=== PATIENT | female | born 1970 | race Caucasian/White ===

== ENCOUNTER → 2016-05-06 | Outpatient (POV) | payer OTHER, SELFPAY | PROVIDERS: Visit Provider Internal Medicine | DX: Y99.9 Unspecified external cause status (principal) | CPT/HCPCS: 93005 ==

== ENCOUNTER → 2017-06-29 10:10 | Outpatient (CLI) | payer MEDICARE, MEDICAID, SELFPAY ==
--- NOTE | 2017-06-29 10:17 | MM_ITS ---
MM Dig screening mamm BI w/CAD CAD Screening COMPARISON: Digital mammograms 04/14/2014 and 05/02/2013 INDICATION: There is a history of breast cancer in patient's paternal grandmother. TECHNIQUE: Standard CC and MLO images were obtained. R2 CAD reviewed. FINDINGS: Scattered fibroglandular densities are seen throughout both breasts and the findings are bilateral and symmetrical. There is a mole marker right breast. There is no suspicious lesion in either breast and there are no suspicious microcalcifications. IMPRESSION: Stable exam no suspicious lesion seen BI-RADS Category: 1 Negative RECOMMENDED FOLLOW-UP: 1YR - 1 YEAR FOLLOW-UP (A letter has been sent to the patient regarding results of the study.)
== END ==
PROVIDERS: PCP Family Medicine; Visit Provider Family Medicine
DX: Z12.31 Encounter for screening mammogram for malignant neoplasm of breast (principal)
CPT/HCPCS: 77067

== ENCOUNTER → 2017-09-18 11:13 | Outpatient (CLI) | payer MEDICARE, MEDICAID, SELFPAY ==
[2017-09-18 12:41] LABS: Thyroid Stimulating Hormone 1.97 uIU/ml (0.358-3.740)
== END ==
PROVIDERS: PCP Family Medicine; Visit Provider Otolaryngology
DX: E03.9 Hypothyroidism, unspecified (principal)
CPT/HCPCS: 36415; 84439; 84443

== ENCOUNTER → 2017-12-11 09:48 | Outpatient (CLI) | payer MEDICARE, MEDICAID, SELFPAY ==
--- NOTE | 2017-12-11 10:00 | MM_ITS ---
MM Dig mamm DX unilat RT CAD, US breast RT complete INDICATION: Palpable abnormality in the medial aspect of the right breast ORDERING PHYSICIAN: Santana Schneider PATIENT AGE: 47 years COMPARISON: 06/29/2017 and 04/14/2014 TECHNIQUE: Standard images performed with spot compression views and right breast ultrasound FINDINGS: Average fibroglandular tissue. A marker is placed along medial aspect of the right breast corresponding to patient's reported palpable abnormality. No malignant appearing mass or malignant appearing microcalcification. Specifically, no abnormalities evident at the placed marker. Right breast ultrasound: No sonographic anomalies apparent. Small nodes present in the axilla IMPRESSION: No evidence of malignancy. No abnormalities to correspond to the patient's area of palpable concern. Negative mammogram and negative ultrasound does not exclude the possibility of malignancy. A palpable nodule should be managed on clinical basis in light of a negative mammogram and negative ultrasound BI-RADS Category: 1 Negative RECOMMENDED FOLLOW-UP: 1YR - 1 YEAR FOLLOW-UP (A letter has been sent to the patient regarding results of the study.)
== END ==
PROVIDERS: PCP Family Medicine; Visit Provider Family Medicine
DX: N63.14 Unspecified lump in the right breast, lower inner quadrant (principal)
CPT/HCPCS: 77065

== ENCOUNTER → 2017-12-16 09:22 | Outpatient (CLI) | payer MEDICARE, MEDICAID, SELFPAY | PROVIDERS: PCP Family Medicine; Visit Provider Family Medicine | DX: R92.8 Other abnormal and inconclusive findings on diagnostic imaging of breast (principal) | CPT/HCPCS: 76641 ==

== ENCOUNTER → 2018-05-25 11:36 | Outpatient (CLI) | payer MEDICARE, MEDICAID, SELFPAY ==
--- NOTE | 2018-05-25 11:50 | XR_ITS ---
EXAM: XR lumbar spine 2-3V HISTORY: Low back pain ITS.REASON: DDD ORDERING PHYSICIAN: Xu Rdz MD PATIENT AGE: 47 years COMPARISON: None FINDINGS: Mild dextroscoliosis. There is straightening of the lumbar lordosis. Degenerative disc disease is present at L4-5 with mild kyphosis at that level. Mild degenerative disc disease is noted also at L5-S1 and T12-L1. No fracture or dislocation. No lytic or blastic change. IMPRESSION: Dextroscoliosis with straightening of the lordosis and degenerative disc disease at L4-5 and L5-S1
--- NOTE | 2018-05-25 11:50 | XR_ITS ---
XR hip RT 2-3V w/pelvis HISTORY: ITS.REASON: RT HIP JOINT PAIN ORDERING PHYSICIAN: Xu Rdz MD PATIENT AGE: 47 years COMPARISON: 01/11/2016 FINDINGS: There are mild osteoarthritic changes of the right hip with decrease in the joint space superiorly. There is some minimal lateral subluxation of the femoral head with mild widening of the hip joint space medially. This had a somewhat similar appearance on an older KUB of 03/16/2012. Osteoarthritic changes and lateral subluxation have somewhat worsened compared to that exam. No fracture or dislocation. No lytic or blastic change. IMPRESSION: Mild osteoarthritis of the right hip with mild lateral subluxation of the femoral head
== END ==
PROVIDERS: PCP Family Medicine; Visit Provider Anesthesiology
DX: M51.36 Other intervertebral disc degeneration, lumbar region (principal); M25.511 Pain in right shoulder
CPT/HCPCS: 72100; 73502

== ENCOUNTER → 2018-06-28 08:34 | Outpatient (CLI) | payer MEDICARE, MEDICAID, SELFPAY ==
--- NOTE | 2018-06-28 08:39 | MR_ITS ---
MR lumbar spine wo con, MR 3-d myelogram/MRCP HISTORY: Low back pain X years. Bilateral leg pain, LT leg numbness. ITS.REASON: DEGENERATION OF LUMBAR INTERVERTEBRAL DISC ORDERING PHYSICIAN: Referral Provider, PATIENT AGE: 47 years Comparison: MRI 07/27/13. DEXA 05/25/18. TECHNIQUE: Standard multiplanar multiecho sequences are performed without contrast. 3-D MIP and myelographic images are also rendered and reviewed FINDINGS: There is straightening of lumbar lordosis with minimal lumbar curvature convex right. Spinal cord ends at the T12-L1 level. T11-T12: Degenerative disc disease with Schmorl's node along the superior endplate of T12. T12-L1 and L1-L2 have unremarkable appearance. L2-L3: Disc desiccation with minimal bulging disc along with mild facet and ligamentum flavum hypertrophy. L3-L4: Mild concentric bulging disc along with facet and ligamentum hypertrophy. There is mild bilateral lateral recess narrowing and mild left foraminal narrowing. L4-L5: Degenerative disc disease with bulging disc along with facet and ligamentum hypertrophy with bilateral lateral recess narrowing and mild bilateral foraminal slightly greater on the right with the bulging disc abutting upon the right L5 nerve root. Right foraminal disc osteophyte/disc protrusion once again noted which is abutting the exiting L4 nerve root. L5-S1: Unremarkable. Small Tarlov cyst is present in the S2 region at 12 mm. IMPRESSION: 1. Overall no significant change from 07/27/2013. 2. Multilevel lumbar spondylosis as detailed above. Please see above for detailed description. 3. Degenerative disc disease L4-L5 with bulging disc along with facet and ligamentum hypertrophy with bilateral lateral recess narrowing and mild bilateral foraminal slightly greater on the right with the bulging disc abutting upon the right L5 nerve root. Right foraminal disc osteophyte/disc protrusion once again noted which is abutting the exiting L4 nerve root. This is not significantly changed
--- NOTE | 2018-06-28 08:40 | MR_ITS ---
MR hip RT wo con HISTORY: Right hip pain ITS.REASON: UNILATERAL PRIMARY OSTEOARTHIRITIS, RIGHT HIP ORDERING PHYSICIAN: Referral Provider, PATIENT AGE: 47 years COMPARISON: 05/25/2018 FINDINGS: There is mild lateral subluxation of the right femoral head as noted on the recent radiograph. There is a small to medium-sized joint effusion of the right hip. No fracture or dislocation. There is a small area of increased T2 signal involving the femoral head posteriorly. This is nonspecific consistent with a small area of bone marrow edema. There is a small amount of edema within the adjacent periarticular tissues posteriorly within the gluteus minimus. There are minimal osteoarthritic changes of the left hip. IMPRESSION: 1. Medium sized right hip joint effusion with mild right lateral femoral head subluxation possibly related to the effusion. 2. Mild osteoarthritic changes of the right hip with a small area of bone marrow edema in the right femoral head posteriorly and mild amount of periarticular edema
== END ==
PROVIDERS: PCP Family Medicine; Visit Provider Family Medicine
DX: M51.36 Other intervertebral disc degeneration, lumbar region (principal); M16.11 Unilateral primary osteoarthritis, right hip
CPT/HCPCS: 72148; 73721; 76376

== ENCOUNTER → 2018-09-30 12:15 | Outpatient (CLI) | payer MEDICARE, MEDICAID, SELFPAY ==
[2018-09-30 13:55] LABS: Thyroid Stimulating Hormone 3.43 uIU/ml (0.358-3.740)
== END ==
PROVIDERS: Visit Provider Otolaryngology
DX: D49.7 Neoplasm of unspecified behavior of endocrine glands and other parts of nervous system (principal)
CPT/HCPCS: 36415; 84439; 84443

== ENCOUNTER → 2018-10-12 09:53 | Outpatient (CLI) | payer MEDICARE, MEDICAID, SELFPAY ==
--- NOTE | 2018-10-12 09:53 | CA_ITS ---
PROCEDURE: 2-D M-mode and color Doppler study INDICATIONS FOR THE TEST: Chest pain COPD Heart Murmur Tobacco Smoking+ Palpitations Fatigue Syncope Edema+ Hypertension+Diabetes Mellitus Rheumatic Fever SOB+LOPEZ+Obesity+Hyperlipidemia+ Family History HD Additional History PAD, KATHARINA PATIENT INFORMATION HEIGHT: 68 WEIGHT: 261 GENDER: Female B/P: 106/53 2-D/M-MODE INTERPRETATION: 2-D MEASUREMENTS OBSERVED VALUES IN CMS Right Ventricular Dimension (RVDd) 2.4 Interventricular Septum (Thickness)(IVsd) 1.2 Left Ventricular Internal Dimensions(LVIDd) 5.4 Left Ventricular Posterior Wall (Thickness)(LVPWd) 1.0 Aortic Root 2.8 Aortic Cusp Separation 2.1 Left Atrial Dimensions (LAD) 3.6 2D 1. Left atrium is mildly enlarged, left ventricle is normal size, mild concentric left ventricular hypertrophy, visually estimated ejection fraction 55% with no regional wall motion abnormality, septum has sigmoid configuration. 2. The right atrium and right ventricle are mildly enlarged with normal contractility. 3. The aortic valve is minimally thickened and fibrosed. 4. The mitral and tricuspid valvular grossly normal. 5. The pulmonic valve is poorly present. 6. No significant pericardial effusion noted. DOPPLER INTERROGATION: Doppler interrogation of the aortic, mitral and tricuspid valvular presence of mild mitral and tricuspid regurgitation, tricuspid regurgitation jet velocity is inadequate for calculation of the right ventricular systolic pressure, grade 1 diastolic dysfunction seen without tissue Doppler evidence of raised left atrial pressure. CONCLUSION: 1. Normal left ventricular size, preserved left ventricular systolic function, visually estimated ejection fraction 55% with no regional wall motion abnormality, grade 1 diastolic dysfunction seen without tissue Doppler evidence of raised left atrial pressure. 2. Mild mitral and tricuspid regurgitation 3. No significant pericardial effusion noted.
--- NOTE | 2018-10-12 10:18 | CT_ITS ---
CT angio abdomen CLINICAL INDICATION: Claudication, preoperative evaluation for right hip replacement ITS.REASON: z ORDERING PHYSICIAN: Shannen Petty APRN PATIENT AGE: 48 years COMPARISON: None TECHNIQUE: Axial images obtained with sagittal and coronal reformats. All CT scans at the facility use one or more dose reduction, viz: automated exposure control, ma/kV adjustment per patient size (including targeted exams where dose is matched to indication, i.e. head), or iterative reconstruction technique. PROCEDURE: Oral Contrast: None IV Contrast: 120 mL's Optiray 350. FINDINGS: No evidence of aortic aneurysm. There are moderate atheromatous changes involving the mid abdominal aorta 5 cm distal to the renal arteries with approximate 40% stenosis from atheromatous plaque. No iliac stenosis evident. The renal arteries have an unremarkable appearance. There is no significant celiac or superior mesenteric artery stenosis. An inferior mesenteric artery is not identified. Branches to the sigmoid colon emanate from the superior mesenteric artery. Bilateral lower extremity runoff: On the right the common femoral, femoral artery, popliteal artery, trifurcation vessels have an unremarkable appearance. There is three-vessel runoff to the ankle on the right. On the left the common femoral, femoral, popliteal, and trifurcation vessels are unremarkable with three-vessel runoff to the ankle. Nonvascular findings: There are postsurgical changes of the anterior abdominal wall. The liver shows mild fatty replacement. The spleen, adrenal glands, and pancreas are unremarkable. There are a few small periportal lymph nodes. There is a nonobstructing 3 mm stone in the lower pole of left kidney. There is a sclerotic focus in the right ilium which may be due to bone island. IMPRESSION: 1. Mild to moderate atheromatous changes of the infrarenal portion of the abdominal aorta causing approximately 40% stenosis. 2. Otherwise negative CT angiogram of the abdominal aorta and runoff vessels.
== END ==
PROVIDERS: PCP Family Medicine; Visit Provider Nurse Practitioner Family
DX: I70.0 Atherosclerosis of aorta (principal); R06.00 Dyspnea, unspecified; Z01.818 Encounter for other preprocedural examination; I11.9 Hypertensive heart disease without heart failure; I73.9 Peripheral vascular disease, unspecified
CPT/HCPCS: 74175; 93306; Q9967

== ENCOUNTER → 2019-05-03 08:57 | Outpatient (POV) | payer MEDICARE, MEDICAID, SELFPAY | PROVIDERS: Visit Provider Dermatology | DX: Z00.00 Encounter for general adult medical examination without abnormal findings (principal) ==

== ENCOUNTER → 2019-06-21 10:12 | Outpatient (POV) | payer MEDICARE, MEDICAID, SELFPAY | PROVIDERS: PCP Dermatology; Visit Provider Dermatology | DX: Z00.00 Encounter for general adult medical examination without abnormal findings (principal) ==

== ENCOUNTER → 2020-02-06 15:17 | Outpatient (CLI) | payer MEDICARE, MEDICAID, SELFPAY ==
[2020-02-06 16:11] LABS: Free T4 (Free Thyroxine) 1.57 ng/dl (0.78-2.19)
[2020-02-06 16:13] LABS: Thyroid Stimulating Hormone 5.54 uIU/mL (0.465-4.68)
== END ==
PROVIDERS: Visit Provider Otolaryngology
DX: E78.5 Hyperlipidemia, unspecified (principal); Z79.899 Other long term (current) drug therapy
CPT/HCPCS: 36415; 84439; 84443

== ENCOUNTER → 2020-08-24 09:35 | Outpatient (CLI) | payer MEDICARE, MEDICAID, SELFPAY ==
[2020-08-24 11:09] LABS: Free T4 (Free Thyroxine) 1.48 ng/dl (0.78-2.19)
[2020-08-24 11:23] LABS: Thyroid Stimulating Hormone 5.37 uIU/mL (0.465-4.68)
== END ==
PROVIDERS: Visit Provider Otolaryngology
DX: E03.9 Hypothyroidism, unspecified (principal)
CPT/HCPCS: 36415; 84439; 84443

== ENCOUNTER → 2020-10-02 09:18 | Outpatient (POV) | payer MEDICARE, MEDICAID, SELFPAY | PROVIDERS: Visit Provider Dermatology | DX: Z00.00 Encounter for general adult medical examination without abnormal findings (principal) ==

== ENCOUNTER 2020-10-30 20:16 | Inpatient (IN) | payer MEDICARE, MEDICAID, SELFPAY ==
[2020-10-30 21:05] VITALS: BP 89/49; PULSE 96; RESP 18; TEMP 36.9; O2SAT 96; BMI 41.6
[2020-10-30 22:00] VITALS: BP 126/100; PULSE 98; O2SAT 93
--- NOTE | 2020-10-30 22:09 | CT_ITS ---
PROCEDURE INFORMATION: Exam: CT Abdomen And Pelvis With Contrast Exam date and time: 10/30/2020 10:09 PM Age: 50 years old Clinical indication: Abdominal pain; Generalized; Prior surgery; Surgery date: 6+ months; Surgery type: Appendix, hysterectomy, hernia; Additional info: Upper abd pain TECHNIQUE: Imaging protocol: Computed tomography of the abdomen and pelvis with contrast. Radiation optimization: All CT scans at this facility use at least one of these dose optimization techniques: automated exposure control; mA and/or kV adjustment per patient size (includes targeted exams where dose is matched to clinical indication); or iterative reconstruction. Contrast material: ISOVUE; Contrast volume: 75 ml; Contrast route: IV; COMPARISON: [facility] CT angio abdomen 10/12/2018 10:54 AM FINDINGS: Lungs: Mild scarring and atelectasis in the lower lungs. There is a 3 mm right middle lobe pulmonary nodule, unchanged since at least 2015. No follow-up imaging is warranted. Liver: Hepatic steatosis and hepatomegaly. Gallbladder and bile ducts: Cholelithiasis. Dilated gallbladder. Pancreas: Mild pancreatic atrophy. Spleen: Normal. No splenomegaly. Adrenal glands: Normal. No mass. Kidneys and ureters: Low attenuation renal lesions measuring up to 1.7 cm in diameter are incompletely characterized, but are likely cysts. No followup imaging is warranted. Nonobstructing left renal calculus. Stomach and bowel: Unremarkable. No obstruction. No mucosal thickening. Appendix: No evidence of appendicitis. Intraperitoneal space: Unremarkable. No free air. No significant fluid collection. Vasculature: [id number] atherosclerotic changes of the arteries. Lymph nodes: Unremarkable. No enlarged lymph nodes. Urinary bladder: Unremarkable as visualized. Reproductive: Status post hysterectomy. Bones/joints: Status post total right hip arthroplasty. Soft tissues: There is a healed anterior abdominal wall incision. IMPRESSION: 1. Cholelithiasis. Dilated gallbladder. Please correlate for evidence of acute cholecystitis clinically. 2. Nonobstructing left renal calculus. 3. Hepatic steatosis and hepatomegaly. COMMENTS: Consistent with the [employer]'s Incidental Findings Committee white paper (J Am Katelyn Radiol 2018): Any incidental renal lesion less than 1 cm or classified as too small to characterize, or any incidental cystic renal lesion characterized as simple-appearing, is likely benign. No follow-up imaging is recommended for these lesions per consensus recommendations based on imaging criteria.
--- NOTE | 2020-10-30 22:09 | XR_ITS ---
PROCEDURE INFORMATION: Exam: XR Chest Exam date and time: 10/30/2020 10:09 PM Age: 50 years old Clinical indication: Chest pressure; Patient HX: Chest tightness abdomen pain TECHNIQUE: Imaging protocol: XR of the chest. Views: 2 views. COMPARISON: [facility] CT CHEST W/O CONTRAST 09/23/2016 1:12 PM FINDINGS: Lungs: Minimal bibasilar atelectasis. Pleural spaces: Unremarkable. No pleural effusion. No pneumothorax. Heart/Mediastinum: Unremarkable. No cardiomegaly. Bones/joints: Unremarkable. IMPRESSION: No acute findings.
[2020-10-30 22:30] VITALS: BP 94/44
[2020-10-30 22:38] LABS: Alanine Aminotransferase 15 U/L (12-78); Albumin Level 4.4 g/dl (3.5-5.0); Albumin/Globulin Ratio 1.1 (1.1-1.8); Alkaline Phosphatase 74 U/L (38-126); Amylase 41 U/L (30-110); Anion Gap 13.2 mEq/L (5-15); Aspartate Amino Transferase 29 U/L (14-36); Bilirubin,Total 1.4 mg/dl (0.2-1.3); Blood Urea Nitrogen 26 mg/dl (7-17); Calcium 8.7 mg/dl (8.4-10.2); Carbon Dioxide 30 mmol/L (22.0-30.0); Chloride 97 mmol/L (98-107); Creatinine Clearance Estimated 54 mL/min (50-200); Estimated Glomerular Filt Rate 43 ml/min (>60); GFR (African American) 52 ML/MIN (>60); Globulin 4.1 g/dL (1.3-3.2); Glucose 117 mg/dl (74-100); Lipase 21 U/L (23-300); Potassium 4.2 mmoL/L (3.5-5.1); Sodium 136 mmol/L (136-145); Total Protein,Serum 8.5 g/dl (6.3-8.2)
[2020-10-30 22:39] LABS: Lactic Acid 1.5 mmol/L (0.7-2.1)
[2020-10-30 22:52] LABS: Troponin I 0.02 ng/ml (0.00-0.034)
[2020-10-30 22:56] LABS: C-Reactive Protein 348.9 mg/L (0-4)
[2020-10-30 22:57] LABS: Procalcitonin 2.13 ng/mL (0.0-2.0)
[2020-10-30 23:01] VITALS: BP 129/54
[2020-10-30 23:10] LABS: Basophils # 0.1 K/mm3 (0-0.2); Basophils % 0.5 % (0.1-2.0); Eosinophils # 0.1 K/mm3 (0.0-0.4); Eosinophils % 0.4 % (0.1-12.0); Hematocrit 49.2 % (37.0-47.0); Hemoglobin 16.2 g/dL (12.2-16.2); Lymphocytes # 1.3 K/mm3 (0.7-4.5); Lymphocytes % 8.9 % (10-50); Mean Corpuscular HGB Conc 32.9 g/dL (31.8-35.4); Mean Corpuscular Hemoglobin 30.4 pg (27.0-31.2); Mean Corpuscular Volume 92.5 fl (81-99); Mean Platelet Volume 7.8 fl (7.4-10.4); Monocytes # 0.6 K/mm3 (0.1-1.0); Monocytes % 3.7 % (1.7-9.3); Neutrophils # 12.8 K/mm3 (1.8-7.8); Neutrophils % 86.5 % (37.0-80.0); Platelet Count 244 K/mm3 (142-424); Red Blood Count 5.32 M/mm3 (4.20-5.40); Red Cell Distribution Width 14.2 % (11.5-17.5); White Blood Count 14.8 K/mm3 (4.8-10.8)
[2020-10-30 23:16] LABS: MANUAL DIFFERENTIAL MANUAL DIFFERENTIAL (MANUAL DIFF)
--- NOTE | 2020-10-30 23:28 | HMH.EDSKAF ---
ED Disposition Clinical Impression: Tobacco dependence syndrome, Severe sepsis with acute organ dysfunction, Septic shock, Renal insufficiency, Hypothyroidism (acquired) Cellulitis Qualifiers: Site of cellulitis: extremity Site of cellulitis of extremity: lower extremity Laterality: right Qualified Code(s): L03.115 - Cellulitis of right lower limb Obesity Qualifiers: Obesity type: due to excess calories Obesity classification: adult class 3 (BMI >= 40) Serious obesity comorbidity presence: with serious comorbidity Body mass index: BMI 40.0-44.9 Qualified Code(s): E66.01 - Morbid (severe) obesity due to excess calories; Z68.41 - Body mass index [BMI]40.0-44.9, adult Cholelithiasis Qualifiers: Cholelithiasis location: gallbladder Cholecystitis presence: without cholecystitis Biliary obstruction: without biliary obstruction Qualified Code(s): K80.20 - Calculus of gallbladder without cholecystitis without obstruction Disposition: Admitted As Inpatient Condition on Discharge: Good Referrals: Santana Schneider [Primary Care Provider] - - Critical Care Critical Care Time: No Attestation: On 10/30/20, the high probability of a clinically significant, sudden or life threatening deterioration of the following system(s) required my full and direct attention, intervention and personal management. The time I documented below is in addition to time spent performing reported procedures but includes the following listed in this critical care notation. Medical Decision Making - Medical Records Medical records reviewed: Yes: I reviewed the patient's medical records. - Miguel Inquiry Pt receiving controlled substance: No Vital Signs: 10/30/20 21:05 10/30/20 22:00 10/30/20 22:30 Temperature 98.4 F Temperature Source Oral Pulse Rate 98 H Pulse Rate [Left Brachial] 96 H Respiratory Rate 18 Blood Pressure 126/100 H 94/44 L Blood Pressure [Left Arm] 89/49 L Blood Pressure Mean 73 Blood Pressure Mean [Left Arm] 62 Blood Pressure Source Blood Pressure Source [Left Arm] Automatic Cuff Blood Pressure Position [Left Arm] Sitting 02 Sat by Pulse Oximetry 96 93 L Oxygen Delivery Method Room Air 10/30/20 23:01 10/30/20 23:54 10/31/20 00:00 Temperature Temperature Source Pulse Rate 109 H 111 H Pulse Rate [Left Brachial] Respiratory Rate Blood Pressure 129/54 L 80/37 L 88/36 L Blood Pressure [Left Arm] Blood Pressure Mean 79 57 53 Blood Pressure Mean [Left Arm] Blood Pressure Source Blood Pressure Source [Left Arm] Blood Pressure Position [Left Arm] 02 Sat by Pulse Oximetry 92 L 93 L Oxygen Delivery Method 10/31/20 00:12 10/31/20 00:15 10/31/20 00:32 Temperature Temperature Source Pulse Rate 106 H 105 H 88 Pulse Rate [Left Brachial] Respiratory Rate Blood Pressure 78/30 L 88/46 L 79/58 L Blood Pressure [Left Arm] Blood Pressure Mean Blood Pressure Mean [Left Arm] Blood Pressure Source Manual Cuff/ Auscultation Blood Pressure Source [Left Arm] Blood Pressure Position [Left Arm] 02 Sat by Pulse Oximetry 92 L 89 L 89 L Oxygen Delivery Method 10/31/20 00:39 10/31/20 00:45 Temperature Temperature Source Pulse Rate 98 H 96 H Pulse Rate [Left Brachial] Respiratory Rate Blood Pressure 87/47 L 93/40 L Blood Pressure [Left Arm] Blood Pressure Mean 60 58 Blood Pressure Mean [Left Arm] Blood Pressure Source Blood Pressure Source [Left Arm] Blood Pressure Position [Left Arm] 02 Sat by Pulse Oximetry 92 L 94 L Oxygen Delivery Method - Lab Data Lab results reviewed: Yes: I reviewed the patient's lab results. Lab Results 10/30/20 22:15: WBC 14.8 H, RBC 5.32, Hgb 16.2, Hct 49.2 H, MCV 92.5, MCH 30.4, MCHC 32.9, RDW 14.2, Plt Count 244, MPV 7.8, Neut % (Auto) 86.5 H, Lymph % (Auto) 8.9 L, Jones % (Auto) 3.7, Eos % (Auto) 0.4, Baso % (Auto) 0.5, Neut # (Auto) 12.8 H, Lymph # (Auto) 1.3, Jones # (Auto) 0.6, Eos # (A
[2020-10-30 23:54] VITALS: BP 80/37; PULSE 109; O2SAT 92
--- NOTE | 2020-10-30 23:59 | ECG_ITS ---
APPROVED REPORT Exam: Resting ECG HR:105 bpm ECG Measurements Heart Rate 105 AXES IA 174 P 53 QRSd 80 QRS 29 QT 354 T 68 QTc 467 Conclusion Sinus tachycardia with occasional premature ventricular complexes Low voltage QRS Cannot rule out Anterior infarct, age undetermined Abnormal ECG Electronically signed by : Oscar Adam, 11/01/2020 17:02:36
[2020-10-31] VITALS (19 sets, daily range): BP systolic 78–148; BP diastolic 30–77; PULSE 83–112; RESP 18–24; TEMP 36.9–37.2; O2SAT 89–100; BMI 41.3; BMI 41.4
[2020-10-31] LABS: Lymphocytes % 11 % (10-50); Monocytes % 3 % (2-9); Neutrophils % 86 % (42-76); Platelet Estimate Normal; RBC Morphology Normal; Total Cells Counted 100
[2020-10-31 00:01] LABS: Erythrocyte Sedimentation Rate 15 mm/hr (0-20)
[2020-10-31 00:05] LABS: Coronavirus 19, PCR Not Detected (NotDetected); Influenza A, PCR Not Detected (NotDetected); Influenza B, PCR Not Detected (NotDetected)
[2020-10-31 00:37] LABS: Microscopic, Urine URINE MICROSCOPIC (MICROSCOPIC)
[2020-10-31 00:59] LABS: Appearance,Urine CLEAR (Clear); Blood, Urine Negative (Negative); Color,Urine YELLOW (Yellow); Glucose,Urine (UA) Negative (Negative); Ketones,Urine TRACE (Negative); Leukocyte Esterase,Urine TRACE (Negative); Nitrate,Urine POSITIVE (Negative); PH,Urine 5.5 (5.0-8.5); Protein,Urine 1+ (Negative)
[2020-10-31 01:02] LABS: Bilirubin,Urine 2+ (Negative)
[2020-10-31 02:15] LABS: Thyroid Stimulating Hormone 3.71 uIU/mL (0.465-4.68)
--- NOTE | 2020-10-31 03:42 | PC.NURSE ---
PT ARRIVED TO FLOOR VIA W/C FROM ED W/STAFF AT [id number]
[2020-10-31 03:51] LABS: Bacteria,Urine 2+ /lpf
--- NOTE | 2020-10-31 07:23 | HMH.PHAVTE ---
[facility] Pharmacy VTE Monitoring - Patient Demographics Admission date: 10/30/20 Report Date: 10/31/20 Time: 07:24 Allergies/Adverse Reactions: Patient Allergies nitrofurantoin [From MACROBID] Allergy (Severe, Verified 08/30/20 15:15) S-DIFF. BREATHING metronidazole Allergy (Intermediate, Verified 08/30/20 15:15) codeine [CODEINE] Allergy (Unknown, Verified 08/30/20 15:15) Height: 1.75 m Weight: 127.913 kg Patient Problems: Current Active Problems Cellulitis (Acute) Obesity (Acute) Severe sepsis with acute organ dysfunction (Acute) Septic shock (Acute) Renal insufficiency (Acute) Cholelithiasis (Acute) Hypothyroidism (acquired) (Acute) Tobacco dependence syndrome (Chronic) - VTE Risk Labs: VTE Related Lab Results Hgb 16.2 g/dL (12.2-16.2) 10/30/20 22:15 Hct 49.2 % (37.0-47.0) H 10/30/20 22:15 Plt Count 244 K/mm3 (142-424) 10/30/20 22:15 BUN 26 mg/dl (7-17) H 10/30/20 22:15 Creatinine 1.30 mg/dl (0.52-1.04) H 10/30/20 22:15 Estimated Creat Clear 54 mL/min (50-200) 10/30/20 22:15 Clinical Trial Participant: No - Prophylaxis VTE Prophylaxis Ordered?: Yes Types of VTE Prophylaxis: TEDS Knee High
--- NOTE | 2020-10-31 07:28 | HMH.PHAINT ---
home medication list confirmed using lsit from [facility]
[2020-10-31 07:43] LABS: Anion Gap 10.4 mEq/L (5-15); Basophils # 0.1 K/mm3 (0-0.2); Basophils % 0.4 % (0.1-2.0); Blood Urea Nitrogen 19 mg/dl (7-17); Carbon Dioxide 29 mmol/L (22.0-30.0); Chloride 105 mmol/L (98-107); Chol/HDL Ratio 8.6 (1-3.5); Cholesterol 207 mg/dl (140-200); Creatinine Clearance Estimated 70 mL/min (50-200); Direct LDL Cholesterol 101.02 mg/dL (100-129); Eosinophils % 0.1 % (0.1-12.0); Estimated Glomerular Filt Rate 59 ml/min (>60); GFR (African American) 71 ML/MIN (>60); Glucose 116 mg/dl (74-100); HDL Cholesterol 24 mg/dl (40-60); Hematocrit 45.1 % (37.0-47.0); Lymphocytes # 0.9 K/mm3 (0.7-4.5); Lymphocytes % 8.1 % (10-50); Mean Corpuscular HGB Conc 31.9 g/dL (31.8-35.4); Mean Corpuscular Hemoglobin 30.4 pg (27.0-31.2); Mean Platelet Volume 7.6 fl (7.4-10.4); Monocytes # 0.6 K/mm3 (0.1-1.0); Neutrophils % 86.4 % (37.0-80.0); Platelet Count 197 K/mm3 (142-424); Potassium 4.4 mmoL/L (3.5-5.1); Red Blood Count 4.74 M/mm3 (4.20-5.40); Red Cell Distribution Width 13.9 % (11.5-17.5); Sodium 140 mmol/L (136-145); Triglycerides 316 mg/dl (30-150); VLDL Cholesterol 63 mg/dL (0-40); White Blood Count 11.6 K/mm3 (4.8-10.8)
--- NOTE | 2020-10-31 08:00 | US_ITS ---
PROCEDURE: US GALLBLADDER CLINICAL INDICATION: abd pain COMPARISON: CT CT ABDOMEN PELVIS W CON from 10/30/2020 FINDINGS: Pancreas: Unremarkable/Not well seen Liver: Diffuse increased echogenicity of the liver with poor through transmission of sound consistent with hepatic steatosis. No focal liver lesion demonstrated. There is appropriate direction of blood flow within non dilated portal vein.There is appropriate direction of blood flow within a non dilated portal vein. Right kidney: Unremarkable appearing. No hydronephrosis. Gallbladder: There is a gallstone present measuring approximately 3 cm. No pericholecystic fluid or biliary dilatation is evident. No gallbladder wall thickening. Gallbladder is mildly distended at 10 x 4 cm. IMPRESSION: Cholelithiasis with mildly distended gallbladder and fatty liver Dictated by: Jose Dixon MD 10/31/2020 12:40 Jose Dioxn MD in [place] 10/31/2020 12:40
[2020-10-31 08:07] LABS: Calcium 7.7 mg/dl (8.4-10.2); Hemoglobin 14.4 g/dL (12.2-16.2)
--- NOTE | 2020-10-31 08:17 | P.HP_ITS ---
*Admission Date: 10/30/20 <Monica Vazquez 10/31/20 08:28> *Chief complaint: right lower leg swelling and erythema <Monica Vazquez 10/31/20 08:28> *History of present illness: Ms. Spain is a 50-year-old female with a history of hypertension who states she woke up 2 days ago with a painful right lower leg. It was red and hot and continued to get worse, therefore she presented to the emergency room for further evaluation and treatment. She states she has also had some intermittent chest pain, some upper abdominal pain, and chills since yesterday. She did have an abdominal pelvic CT showing cholelithiasis with a dilated gallbladder. Her chest x-ray showed nothing acute . Her blood pressure was extremely low when she arrived at the ER and she was felt to be in septic shock. She was admitted with a cellulitis and placed on IV fluids and IV antibiotics. <Monica Vazquez 10/31/20 08:28> [facility] History I have reviewed the patient's past medical history: Yes <Monica Vazquez 10/31/20 08:28> Medical History: Reports:: Anxiety, Hypertension, Peripheral Vascular Disease <Monica Vazquez 10/31/20 08:28> *Have you ever received a pneumonia vaccine?: No <Monica Vazquez 10/31/20 08:28> *Have you received a flu vaccine this season?: No <Monica Vazquez 10/31/20 08:28> Other Medical History: Reports: Hypothyroidism, Thyroid Disease <Monica Vazquez 10/31/20 08:28> Laterality Cases: Right: Total Hip Replacement, Bilateral: Other <Monica Vazquez 10/31/20 08:28> Other Surgeries: Yes: Appendectomy, Cardiac Catheterization, Dilation and Curettage, Hernia Repair, Hysterectomy-Total, Thyroidectomy <Monica Vazquez 10/31/20 08:28> Amputation: No <Monica Vazquez 10/31/20 08:28> Fractures: No <Monica Vazquez 10/31/20 08:28> - *Social History Smoking Status: Current every day smoker <Monica Vazquez 10/31/20 08:28> Tobacco Type: cigarettes <Monica Vazquez - 10/31/20 08:28> # Packs/Day (cigarettes): [facility] 10/31/[facility] 08:28> Alcohol Intake: never <[facility] 10/31/20 08:28> Substance Use Type: denies use <[facility] 10/31/20 08:28> *Occupational Status:: unemployed <[facility] 10/31/[facility] 08:28> Housing: house <[facility] 10/31/20 08:28> *Travel in the last 8 weeks: None <[facility] 10/31/20 08:28> - Psychiatric History Pschychiatric History:: Reports:: Anxiety <[facility] 10/31/20 08:28> Family Hx:: Cancer, Diabetes, Hypertension, Stroke <[facility] 10/31/20 08:28> Review of Systems - Constitutional Reports chills, Reports fever(s), Reports malaise <[facility] 10/31/20 08:28> - Eyes Denies blurry vision, Denies double vision [facility]28> - ENT Denies nasal congestion, Denies sore throat <[facility] 10/31/20 08:28> - *Cardiovascular Reports chest pain, Reports shortness of breath <[facility] 10/31/20 08:28> - *Respiratory Reports cough, Reports shortness of breath <[facility] 08:28> - *Gastrointestinal Reports abdominal pain (epigastric), Reports constipation, Reports nausea, Denies loose stools, Denies vomiting <[facility] 10/31/20 08:28> - *Genitourinary Denies difficulty urinating, Denies painful urination <[facility] 10/31/20 08:28> - *Musculoskeletal Reports back pain, Denies joint pain <[facility] 10/31/20 08:28> - *Neurologic Reports headache(s), Denies localized weakness, Denies seizure-like activity <[facility] 10/31/20 08:28> Meds Home Medications Medication Instructions Recorded Confirmed Type
--- NOTE | 2020-10-31 08:17 | HMH.HP ---
*Admission Date: 10/30/20 <Monica Vazquez 10/31/20 08:28> *Chief complaint: right lower leg swelling and erythema <Monica Vazquez 10/31/20 08:28> *History of present illness: Ms. Spain is a 50-year-old female with a history of hypertension who states she woke up 2 days ago with a painful right lower leg. It was red and hot and continued to get worse, therefore she presented to the emergency room for further evaluation and treatment. She states she has also had some intermittent chest pain, some upper abdominal pain, and chills since yesterday. She did have an abdominal pelvic CT showing cholelithiasis with a dilated gallbladder. Her chest x-ray showed nothing acute. Her blood pressure was extremely low when she arrived at the ER and she was felt to be in septic shock. She was admitted with a cellulitis and placed on IV fluids and IV antibiotics. <Monica Vazquez 10/31/20 08:28> [facility] History I have reviewed the patient's past medical history: Yes <Monica Vazquez 10/31/20 08:28> Medical History: Reports:: Anxiety, Hypertension, Peripheral Vascular Disease <Monica Vazquez 10/31/20 08:28> *Have you ever received a pneumonia vaccine?: No <Monica Vazquez 10/31/20 08:28> *Have you received a flu vaccine this season?: No <Monica Vazquez 10/31/20 08:28> Other Medical History: Reports: Hypothyroidism, Thyroid Disease <Monica Vazquez 10/31/20 08:28> Laterality Cases: Right: Total Hip Replacement, Bilateral: Other <Monica Vazquez 10/31/20 08:28> Other Surgeries: Yes: Appendectomy, Cardiac Catheterization, Dilation and Curettage, Hernia Repair, Hysterectomy-Total, Thyroidectomy <Monica Vazquez 10/31/20 08:28> Amputation: No <Monica Vazquez 10/31/20 08:28> Fractures: No <Monica Vazquez 10/31/20 08:28> - *Social History Smoking Status: Current every day smoker <Monica Vazquez 10/31/20 08:28> Tobacco Type: cigarettes <Monica Vazquez 10/31/20 08:28> # Packs/Day (cigarettes): 2 <[facility] 10/[facility] 08:[facility]> Alcohol Intake: never <[facility] 10/31/20 08:28> Substance Use Type: denies use <[facility] 10/31/20 08:28> *Occupational Status:: unemployed <[facility] 10/31/20 08:28> Housing: house <[facility] 10/31/20 08:28> *Travel in the last 8 weeks: None <[facility] 10/31/20 08:28> - Psychiatric History Pschychiatric History:: Reports:: Anxiety <[facility] 10/31/20 08:28> Family Hx:: Cancer, Diabetes, Hypertension, Stroke <[facility] 10/31/20 08:28> Review of Systems - Constitutional Reports chills, Reports fever(s), Reports malaise <[facility] 10/31/20 08:28> - Eyes Denies blurry vision, Denies double vision <[facility] 10/31/20 08:28> - ENT Denies nasal congestion, Denies sore throat [facility] 08[facility]28> - *Cardiovascular Reports chest pain, Reports shortness of breath <[facility] 08:28> - *Respiratory Reports cough, Reports shortness of breath <[facility] 08:28> - *Gastrointestinal Reports abdominal pain (epigastric), Reports constipation, Reports nausea, Denies loose stools, Denies vomiting <[facility] 10/31/20 08:28> - *Genitourinary Denies difficulty urinating, Denies painful urination <[facility] 10/31/20 08:28> - *Musculoskeletal Reports back pain, Denies joint pain <[facility] 10/31/20 08:28> - *Neurologic Reports headache(s), Denies localized weakness, Denies seizure-like activity <[facility] 10/31/20 08:28> Meds Home Medications Medication Instructions Recorded Confirmed Type albuterol sulfate 90 mcg/actuation 2 puff INHALATION Q4HP PRN 08/19/17 10/31/20 History aerosol inhaler diazepam 10 mg tablet 10 mg PO TID 08/19/17 10/31/20 History lisinopril 5 mg tablet 5 mg PO DAILY tab 08/19/17 10/31/20 History meloxicam 15 mg tablet 15 mg PO DAILY 09/30/18 10/31/20 History oxycodone-acetaminophen 10 mg-325 1 tab PO Q6HP PRN tab 02/06/20 10/31/20 History
--- NOTE | 2020-10-31 14:42 | PC.NURSE ---
Pt educated on use of IS, pt able to demonstrate correct use back to staff. IS @ best = 2500.
--- NOTE | 2020-10-31 17:50 | PC.NURSE ---
Pt has slept majority of shift, stating she just feels exhausted. She was medicated this AM for her chronic back pain. No further complaints of pain thus far. Remains on 2 L O2 per nasal cannula, pt does desat to mid 80's when sleeping. Wheezing noted, occasional dry cough. Abdomen soft, tender w/ active BS in all quads. No BM this shift. Voiding w/o difficulty. Independent w/ adl's. No needs voiced. Call reyes w/in reach.
[2020-11-01 04:00] VITALS: BP 105/66; PULSE 92; RESP 20; TEMP 36.8; O2SAT 95
[2020-11-01 04:28] VITALS: BP 93/66; PULSE 89; RESP 18; TEMP 36.6; O2SAT 72
[2020-11-01 04:29] VITALS: O2SAT 95
--- NOTE | 2020-11-01 04:32 | PC.NURSE ---
patient has removed oxygen on and off throughout shift, patient resistant to wearing oxygen. explained that oxygen level was at 72% on r/a while sleeping. patient stated i guess, i'll wear it for a little while. o2 at 2 l nc placed back on patient sats quickly returned back to mid 90s.
--- NOTE | 2020-11-01 04:51 | PC.NURSE ---
explained to patient that when she sleeps her oxygen level drops to 72% and she should probably being wearing her cpap at night. asked patient if she felt sleepy in the daytime, patient stated she did, rn explained to patient that was probably due to her oxygen levels being low when she sleeps.
[2020-11-01 05:06] VITALS: BMI 43.2
[2020-11-01 06:28] LABS: Basophils % 0.2 % (0.1-2.0); Eosinophils % 0.1 % (0.1-12.0); Hematocrit 39.1 % (37.0-47.0); Lymphocytes # 1.4 K/mm3 (0.7-4.5); Lymphocytes % 13.1 % (10-50); Mean Corpuscular HGB Conc 31.4 g/dL (31.8-35.4); Mean Corpuscular Hemoglobin 30.1 pg (27.0-31.2); Mean Corpuscular Volume 95.9 fl (81-99); Mean Platelet Volume 8.1 fl (7.4-10.4); Monocytes # 0.8 K/mm3 (0.1-1.0); Monocytes % 7.1 % (1.7-9.3); Neutrophils # 8.4 K/mm3 (1.8-7.8); Neutrophils % 79.5 % (37.0-80.0); Platelet Count 229 K/mm3 (142-424); Red Blood Count 4.07 M/mm3 (4.20-5.40); Red Cell Distribution Width 14.3 % (11.5-17.5); White Blood Count 10.6 K/mm3 (4.8-10.8)
--- NOTE | 2020-11-01 06:29 | PC.NURSE ---
patient complaining of oxygen, states it causing a headache and making her dizzy. patient complaining of being npo. rn explained benefits of oxygen again and reason for npo status due to awaiting results of ultrasound results in cause of need for surgical intervention.
[2020-11-01 06:31] LABS: Chloride 105 mmol/L (98-107)
[2020-11-01 06:32] LABS: Potassium 4.3 mmoL/L (3.5-5.1); Sodium 138 mmol/L (136-145)
[2020-11-01 06:34] LABS: Alanine Aminotransferase 50 U/L (12-78); Aspartate Amino Transferase 100 U/L (14-36); Blood Urea Nitrogen 23 mg/dl (7-17); Creatinine Clearance Estimated 62 mL/min (50-200); Estimated Glomerular Filt Rate 53 ml/min (>60); GFR (African American) 64 ML/MIN (>60)
[2020-11-01 06:35] LABS: Albumin Level 3.4 g/dl (3.5-5.0); Albumin/Globulin Ratio 1.1 (1.1-1.8); Alkaline Phosphatase 61 U/L (38-126); Anion Gap 11.3 mEq/L (5-15); Bilirubin,Total 0.9 mg/dl (0.2-1.3); Calcium 7.5 mg/dl (8.4-10.2); Carbon Dioxide 26 mmol/L (22.0-30.0); Globulin 3.2 g/dL (1.3-3.2); Glucose 139 mg/dl (74-100); Total Protein,Serum 6.6 g/dl (6.3-8.2)
[2020-11-01 07:51] LABS: Hemoglobin 12.3 g/dL (12.2-16.2)
[2020-11-01 08:00] VITALS: BP 92/48; PULSE 87; RESP 19; TEMP 36; O2SAT 92
--- NOTE | 2020-11-01 08:15 | PC.NURSE ---
Notified Smiley in Preop about Dr. Armijo Consult .
[2020-11-01 08:18] VITALS: O2SAT 84
--- NOTE | 2020-11-01 08:18 | PC.NURSE ---
Room air sat while @ rest = 84%
--- NOTE | 2020-11-01 08:23 | HMH.ACPN2 ---
<Monica Vazquez - Last Filed: 11/01/20 08:23> Internal Medicine - PN: Subj *Date: 11/01/20 *Time: 08:23 Interval history: Patient states she is feeling better this morning. She has less pain in her right lower extremity. Her abdominal pain is improved. She states she is hungry this morning. She slept well last night Exam Vital signs and Labs for Last 24 Hours: Temp Pulse Resp BP Pulse Ox 98 F 89 18 93/66 L 95 11/01/20 04:28 11/01/20 04:28 11/01/20 04:28 11/01/20 04:28 11/01/20 04:29 Laboratory Results - last 24 hr 11/01/20 05:45: WBC 10.6, RBC 4.07 L, Hgb 12.3 D, Hct 39.1, MCV 95.9, MCH 30.1, MCHC 31.4 L, RDW 14.3, Plt Count 229, MPV 8.1, Neut % (Auto) 79.5, Lymph % (Auto) 13.1, [place] % (Auto) 7.1, Eos % (Auto) 0.1, Baso % (Auto) 0.2, Neut # (Auto) 8.4 H, Lymph # (Auto) 1.4, [place] # (Auto) 0.8, Eos # (Auto) 0.0, Baso # (Auto) 0.0 11/01/20 05:45: Sodium 138, Potassium 4.3, Chloride 105, Carbon Dioxide 26, Anion Gap 11.3, BUN 23 H, Creatinine 1.10 H, Estimated Creat Clear 62, Estimated GFR 53 L, Est GFR ( Amer) 64, Glucose 139 H, Calcium 7.5 L, Total Bilirubin 0.9, AST 100 H D, ALT 50 D, Alkaline Phosphatase 61, Total Protein 6.6, Albumin 3.4 L D, Globulin 3.2, Albumin/Globulin Ratio 1.1 I & O for Last 24 hours: Intake & Output 10/29/20 10/30/20 10/31/20 11/01/20 11:59 11:59 11:59 11:59 Intake Total 3000 / 3000 1520 / 1520 Balance 3000 / 3000 1520 / 1520 Weight 280 lb 6 oz 292 lb 2 oz Microbiology Reports for the Last 24 Hours: Microbiology 10/31/20 00:30 Urine,Clean Catch Urine Culture - Preliminary NO GROWTH AFTER 24 HOURS Radiology Reports for the Last 24 Hours: Gallbladder ultrasound - Cholelithiasis with mildly distended gallbladder and fatty liver - Constitutional no acute distress - *Routine Respiratory Exam Present: rhonchi - *Routine Cardiovascular Exam Present: RRR - *Routine Abdominal Exam Present: soft, normoactive bowel sounds. Absent: tenderness - *Routine Extremities Exam Present: edema. Absent: cyanosis, clubbing - *Routine Skin Exam Present: warm. Absent: rash Comments: Right lower extremity still with erythema from the dorsum of the foot to the mid phillips, it is less tender today, she has better movement of the foot - *Routine Neurological Exam Present: alert, oriented X3 Assessment and Plan (1) Severe sepsis Status: Acute Category: Medical Code(s): A41.9 - Sepsis, unspecified organism; R65.20 - Severe sepsis without septic shock (2) Cellulitis Status: Acute Qualifiers: Site of cellulitis: extremity Site of cellulitis of extremity: lower extremity Laterality: right Qualified Code(s): L03.115 - Cellulitis of right lower limb Category: Medical Code(s): L03.90 - Cellulitis, unspecified (3) Urinary tract infection Status: Acute Category: Medical Code(s): N39.0 - Urinary tract infection, site not specified (4) Cholelithiasis Status: Acute Qualifiers: Cholelithiasis location: gallbladder Cholecystitis presence: without cholecystitis Biliary obstruction: without biliary obstruction Qualified Code(s): K80.20 - Calculus of gallbladder without cholecystitis without obstruction Category: Medical Code(s): K80.20 - Calculus of gallbladder without cholecystitis without obstruction (5) Hypothyroidism (acquired) Status: Chronic Category: Medical Code(s): E03.9 - Hypothyroidism, unspecified (6) Obesity Status: Chronic Qualifiers: Obesity type: due to excess calories Obesity classification: adult class 3 (BMI >= 40) Serious obesity comorbidity presence: with serious comorbidity Body mass index: BMI 40.0-44.9 Qualified Code(s): E66.01 - Morbid (severe) obesity due to excess calories; Z68.41 - Body mass index [BMI]40.0-44.9, adult Category: Medical Code(s): E66.9 - Obesity, unspecified (7) Tobacco dependence syndrome Status: Chronic
--- NOTE | 2020-11-01 12:08 | PC.NURSE ---
Pt left floor AMA in wheelchair accompanied by 2nd floor staff at this time.
--- NOTE | 2020-11-01 12:14 | PC.NURSE ---
Pt's came out in hallway stating that she needed to speak to the nurse. Upon entering room pt was sitting on the side of bed, she stated that she wanted to go home. This nurse educated pt on importance of staying for IV abx, surgical consult and possible need for home O2. Pt made aware of risks of leaving AMA, pt still insistent that she wants to leave. 1144 - Dr. Hayes page 1156 - Dr. Hayes returned called, discussed POC w/ and that pt wishes to leave. MD states she will have to leave AMA, MD to order ABX for pt to waste picker at preferred pharmacy. Returned to room and reviewed AMA paper w/ pt. She did verbalize understanding. She was made aware of ABX being sent to [facility]. Pt to call PCP and make follow-up. IV in RFA DC'd and wrapped in koban. and young daughter @ bedside during education. Home meds given to pt. Pt left floor via wheelchair @ 1201
--- NOTE | 2020-11-02 15:50 | HMH.DCSUM ---
General - General Admission date:: 10/31/20 <Varun Hayes - 11/09/20 08:38> 10/31/20 <Monica Vazquez - 11/02/20 15:56> Discharge date: 11/01/20 <Monica Vazquez - 11/02/20 15:56> HPI HPI: Ms. Spain is a 50-year-old female with a history of hypertension who states she woke up 2 days ago with a painful right lower leg. It was red and hot and continued to get worse, therefore she presented to the emergency room for further evaluation and treatment. She states she has also had some intermittent chest pain, some upper abdominal pain, and chills since yesterday. She did have an abdominal pelvic CT showing cholelithiasis with a dilated gallbladder. Her chest x-ray showed nothing acute. Her blood pressure was extremely low when she arrived at the ER and she was felt to be in septic shock. She was admitted with a cellulitis and placed on IV fluids and IV antibiotics. A RUQ U/S was ordered. <Monica Vazquez - 11/02/20 15:56> Hospital Course Hospital Course: The patient was admitted and started on IV antibiotics, IV fluids, and antiemetics. Her white blood cell count improved as did her renal function. It appeared based on her urinalysis that she had a urinary tract infection as well. She met criteria for severe sepsis but not septic shock. She responded to fluid bolus and did not require any pressors. It was felt the source of her infection was the UTI and the cellulitis. Previous abdominal CTA 2 years ago she had a 40% stenosis of the infrarenal aorta but she had good three-vessel runoff to both ankles. She is followed by pain management for chronic right hip and back pain. Her home medications were resumed. Her right upper quadrant ultrasound showed cholelithiasis with a mildly distended gallbladder and fatty liver. By 11/01/2020, she stated she was feeling better. She had less pain in her right lower extremity and her abdominal pain improved. She wanted to eat. Due to the patient's gallbladder ultrasound results, surgery was consulted as it was felt she would likely need cholecystectomy on an outpatient basis. A diet was ordered for the patient she was continued on IV antibiotics for cellulitis. She was hypoxic at times even during the day but refused to wear her oxygen. The patient left AMA before surgery could see her. Of note, her blood and urine cultures showed no growth after 48 hours <Monica Vazquez - 11/02/20 15:56> Objective Vital signs: Temp Pulse Resp BP Pulse Ox 96.8 F L 87 19 92/48 L 84 L 11/01/20 08:00 11/01/20 08:00 11/01/20 08:00 11/01/20 08:00 11/01/20 08:18 <Varun Hayes - 11/09/20 08:38> Temp Pulse Resp BP Pulse Ox 96.8 F L 87 19 92/48 L 84 L 11/01/20 08:00 11/01/20 08:00 11/01/20 08:00 11/01/20 08:00 11/01/20 08:18 <Monica Vazquez - 11/02/20 15:56> Narrative: - Constitutional no acute distress - *Routine Respiratory Exam Present: rhonchi - *Routine Cardiovascular Exam Present: RRR - *Routine Abdominal Exam Present: soft, normoactive bowel sounds. Absent: tenderness - *Routine Extremities Exam Present: edema. Absent: cyanosis, clubbing - *Routine Skin Exam Present: warm. Absent: rash Comments: Right lower extremity still with erythema from the dorsum of the foot to the mid phillips, it is less tender today, she has better movement of the foot - *Routine Neurological Exam Present: alert, oriented X3 <Monica Vazquez - 11/02/20 15:56> Results Labs on day of discharge: Preliminary micro results at discharge 10/30/20 22:15 Blood Culture - Preliminary Blood NO GROWTH AFTER 48 HOURS 10/30/20 22:15 Blood Culture - Preliminary Blood NO GROWTH AFTER 48 HOURS <Monica Vazquez - 11/02/20 15:56> DS: Diagnosis - Discharge Diagnosis (1) Severe sepsis Status: Acute (2) Cellulitis Status: Acute (3) Urinary tract infection Status: Acute (4) Cholelithiasis Status: Acute (5)
== END 2020-11-01 12:07 | disposition left against medical advice (07) | DRG 871 ==
LOC: UTC 20:24 → ER 21:51 → 2ND 10-31 01:06
PROVIDERS: Admitting Provider Family Medicine; Emergency Provider Emergency Medicine; PCP Family Medicine; Visit Provider Family Medicine
DX: A41.9 Sepsis, unspecified organism (principal); R65.21 Severe sepsis with septic shock; L03.115 Cellulitis of right lower limb; N39.0 Urinary tract infection, site not specified; Z68.41 Body mass index [BMI] 40.0-44.9, adult; E11.51 Type 2 diabetes mellitus with diabetic peripheral angiopathy without gangrene; E03.9 Hypothyroidism, unspecified; G89.29 Other chronic pain; M54.9 Dorsalgia, unspecified; Z96.643 Presence of artificial hip joint, bilateral; F17.210 Nicotine dependence, cigarettes, uncomplicated; I10 Essential (primary) hypertension; F41.9 Anxiety disorder, unspecified; E66.01 Morbid (severe) obesity due to excess calories; K80.20 Calculus of gallbladder without cholecystitis without obstruction; I70.0 Atherosclerosis of aorta; M25.551 Pain in right hip; G47.30 Sleep apnea, unspecified; E78.2 Mixed hyperlipidemia
CPT/HCPCS: 36415; 71046; 74177; 76705; 80048; 80053; 80061; 81001; 82150; 83605; 83690; 83735; 84145; 84443; 84484; 85007; 85025; 85651; 86140; 87040; 87086; 93005; 96365; 96366; 96375; 99291; J2405; Q9967; U0003

== ENCOUNTER 2021-02-17 17:21 | Inpatient (IN) | payer MEDICARE, MEDICAID, SELFPAY ==
[2021-02-17] VITALS (13 sets, daily range): BP systolic 93–150; BP diastolic 42–96; PULSE 71–93; RESP 20; TEMP 36.6; O2SAT 90–96; BMI 41.0; BMI 410488.9
--- NOTE | 2021-02-17 17:58 | HMH.EDUTC ---
[facility] [place] Condition on Discharge: Fair Time of Disposition: 18:24 <Loan Aldrich - Last Filed: 02/17/21 19:36> Condition on Discharge: Fair <Paola Funes - Last Filed: 02/17/21 23:54> Clinical Impression: Dizziness Disposition: Still a Patient Medical Decision Making - Miguel Inquiry Pt receiving controlled substance: No Miguel was queried for this patient: No - Lab Data Result diagrams: 02/17/21 19:00 02/17/21 19:00 <Loan Aldrich - Last Filed: 02/17/21 19:36> - Medical Records Medical records reviewed: Yes: I reviewed the patient's medical records. - Lab Data Lab results reviewed: Yes: I reviewed the patient's lab results. Result diagrams: 02/17/21 19:00 02/17/21 19:00 - CT Data CT Scan: Abdomen Time Received: 16:[address] Reviewed: Yes: I have reviewed the patient's CT results, I discussed the CT results w/the radiologist, I have viewed the radiologist's interpretation <[place] - Last Filed: 02/17/21 23:54> Vital Signs: 02/17/21 17:25 02/17/21 17:49 02/17/21 18:33 Temperature 97.8 F Temperature Source Oral Pulse Rate Pulse Rate [Left Brachial] 90 80 Respiratory Rate 20 20 Blood Pressure Blood Pressure [Left Arm] 104/52 L 93/45 L 105/49 L Blood Pressure Mean [Left Arm] 69 61 67 Blood Pressure Source [Left Arm] Automatic Cuff Automatic Cuff Automatic Cuff Blood Pressure Position [Left Arm] Sitting Sitting Sitting 02 Sat by Pulse Oximetry 95 96 Oxygen Delivery Method Room Air Room Air 02/17/21 23:44 Temperature 97.8 F Temperature Source Pulse Rate 82 Pulse Rate [Left Brachial] Respiratory Rate 20 Blood Pressure 121/74 Blood Pressure [Left Arm] Blood Pressure Mean [Left Arm] Blood Pressure Source [Left Arm] Blood Pressure Position [Left Arm] 02 Sat by Pulse Oximetry Oxygen Delivery Method - Lab Data Lab Results 02/17/21 17:30: SARS-CoV-2 (PCR) Not detected, Influenza A Untype (PCR) Not detected, Influenza Type B (PCR) Not detected 02/17/21 18:28: Urine Color Brown, Urine Appearance Cloudy, Urine pH 5.5, Ur Specific [place] >= 1.030, Urine Protein 2+, Urine Glucose (UA) Negative, Urine Ketones Trace, Urine Blood Trace-i, Urine Nitrate Positive, Urine Bilirubin 3+ A, Urine Urobilinogen 4.0, Ur Leukocyte Esterase 2+ A, Urine RBC 3-5, Urine WBC 50-100, Ur Squamous Epith Cells 20-50 02/17/21 19:00: WBC 15.2 H, RBC 4.59, Hgb 13.8, Hct 44.5, MCV 96.9, MCH 30.0, MCHC 31.0 L, RDW 14.3, Plt Count 249, MPV 8.1, Neut % (Auto) 84.0 H, Lymph % (Auto) 8.9 L, [place] % (Auto) 6.5, Eos % (Auto) 0.2, Baso % (Auto) 0.3, Neut # (Auto) 12.8 H, Lymph # (Auto) 1.4, [place] # (Auto) 1.0, Eos # (Auto) 0.0, Baso # (Auto) 0.1, Total Counted 100, Neutrophils % (Manual) 78 H, Band Neutrophils % 10.0 H, Lymphocytes % (Manual) 8 L, Monocytes % (Manual) 4, Platelet Estimate Normal, Hypochromasia 1+ 02/17/21 19:00: Sodium 138, Potassium 3.4 L, Chloride 100, Carbon Dioxide 31 H, Anion Gap 10.4, BUN 25 H, Creatinine 1.30 H, Estimated Creat Clear 100, Estimated GFR 43 L, Est GFR ( Amer) 52 L, Glucose 106 H, Calcium 8.8, Total Bilirubin 1.8 H, AST 22, ALT 13, Alkaline Phosphatase 94, Total Protein 7.5, Albumin 3.4 L, Globulin 4.1 H, Albumin/Globulin Ratio 0.8 L 02/17/21 19:00: Lipase < 10 L Orders (Tests/Meds): ED MEDICATIONS Generic Name Dose Route Start Last Admin Trade Name Freq PRN Reason Stop Dose Admin Ceftriaxone Sodium 1 gm/ 50 mls @ 100 mls/hr 02/18/21 21:00 Sodium Chloride IV 03/03/21 20:59 Q24H VAMSHI Lactated Ringer's 1,000 mls @ 125 mls/hr 02/17/21 23:30 Lactated Ringer's 1000 Ml Bag IV 03/19/21 21:14 .Q8H VAMSHI Morphine Sulfate 4 mg 02/17/21 23:30 Morphine 4mg/Ml Syringe IV 03/19/21 23:29 Q6HP PRN Mild to Moderate Pain Morphine Sulfate 4 mg 02/17/21 23:43 Morphine 4mg/Ml Syringe IV 03/19/21 23:42 Q6HP PRN Breakthru Moderate Pain Tamsulosin HCl 0.4 mg 02/18/21 09:00 Tamsulosin 0.4mg Capsule PO 03/20/21
--- NOTE | 2021-02-17 18:23 | PC.NURSE ---
PATIENT SENT TO ER PER Michelle JONES APRN FOR FURTHER EVALUATION. REPORT GIVEN TO Dari MCGOWAN RN
--- NOTE | 2021-02-17 18:43 | CT_ITS ---
PROCEDURE INFORMATION: Exam: CT Abdomen And Pelvis With Contrast Exam date and time: 02/17/2021 6:43 PM Age: 50 years old Clinical indication: Abdominal pain; Prior surgery; Surgery date: 6+ months; Surgery type: Hysterectomy appendectomy hernia x 2 2 d& c RT hip surgery; Patient HX: Left flank pain, weakness, low BP; Additional info: Abd pain left flank TECHNIQUE: Imaging protocol: Computed tomography of the abdomen and pelvis with contrast. Radiation optimization: All CT scans at this facility use at least one of these dose optimization techniques: automated exposure control; mA and/or kV adjustment per patient size (includes targeted exams where dose is matched to clinical indication); or iterative reconstruction. Contrast material: ISOVUE; Contrast volume: 75 ml; Contrast route: IV; COMPARISON: CT ABDOMEN PELVIS W CON 10/30/2020 11:23 PM FINDINGS: Lungs: There is a 3 mm nodule in the right middle lobe (series 3, image 3), stable since 10/30/2020. Unchanged 7 mm nodule in the left lower lobe (series 3, image 11). Mild dependent atelectasis at the lung bases. Heart: Trace pericardial fluid, nonspecific. Normal heart size. Liver: Hepatomegaly, measuring 22 cm in craniocaudal dimension. Mild diffuse hepatic steatosis. Gallbladder and bile ducts: Cholelithiasis. Gallbladder is distended, nonspecific, without evidence of gallbladder wall thickening. Pancreas: Unremarkable. No main pancreatic duct dilation. Spleen: Normal. No splenomegaly. Adrenal glands: Unremarkable. Kidneys and ureters: There is a 5 x 4 x 7 mm calculus in the left distal ureter. No significant left ureterectasis or pelvocaliectasis. There is mild diffuse swelling of the left kidney, with several geographic areas of peripheral hypoenhancement, suggesting pyelonephritis. The largest abnormal area of hypoenhancement in the left kidney measures 5.6 x 3.6 x 5.3 cm. This appearance is new since 10/30/2020. There are a few left renal cysts measuring up to 3.3 x 2.6 cm in size. Stomach and bowel: Small hiatal hernia. No obstruction. Left hemicolon is decompressed. There is suggestion of semi-solid stool in the right hemicolon, possibly indicating a diarrheal illness. Appendix: Absent. Intraperitoneal space: No pneumoperitoneum. No ascites. Vasculature: No abdominal aortic aneurysm. Scattered mild atherosclerotic plaque. Lymph nodes: Borderline enlarged devin hepatis lymph nodes. Urinary bladder: Decompressed bladder. Reproductive: Hysterectomy. Bones/joints: No acute fracture. Degenerative changes of the lumbar spine with associated neural foraminal narrowing. Moderate spinal canal stenosis also present at L3-L4. Partially imaged right total hip arthroplasty, with incompletely visualized femoral component. Soft tissues: Chronic postsurgical changes anterior abdominal wall. No fluid collection. IMPRESSION: 1. Calculus in the left distal ureter measuring 5 x 4 x 7 mm. No significant left hydroureter or hydronephrosis. However, there is diffuse swelling of the left kidney, with several areas of abnormal hypoenhancement, most compatible with pyelonephritis. An underlying pathologic mass is considered unlikely given relatively normal appearance of the left kidney on recent study of 10/30/2020, but follow-up imaging advised to confirm resolution. 2. Possible diarrheal illness of the colon. 3. Cholelithiasis. Hepatomegaly with diffuse hepatic steatosis. 4. Other chronic findings as above.
[2021-02-17 18:46] LABS: Microscopic, Urine URINE MICROSCOPIC (MICROSCOPIC)
[2021-02-17 18:51] LABS: Appearance,Urine CLOUDY (Clear); Blood, Urine TRACE-I (Negative); Color,Urine BROWN (Yellow); Glucose,Urine (UA) Negative (Negative); Ketones,Urine TRACE (Negative); Leukocyte Esterase,Urine 2+ (Negative); Nitrate,Urine POSITIVE (Negative); PH,Urine 5.5 (5.0-8.5); Protein,Urine 2+ (Negative); Specific Gravity, Urine >= 1.030 (1.005-1.030)
[2021-02-17 18:54] LABS: Bilirubin,Urine 3+ (Negative); Squamous Epithelial Cell,Urine 20-50 #/hpf (0-5); WBC,Urine 50-100 #/hpf (0-3)
[2021-02-17 19:04] LABS: Coronavirus 19, PCR Not Detected (NotDetected); Influenza A, PCR Not Detected (NotDetected); Influenza B, PCR Not Detected (NotDetected)
[2021-02-17 19:16] LABS: Basophils # 0.1 K/mm3 (0-0.2); Basophils % 0.3 % (0.1-2.0); Eosinophils % 0.2 % (0.1-12.0); Hematocrit 44.5 % (37.0-47.0); Hemoglobin 13.8 g/dL (12.2-16.2); Lymphocytes # 1.4 K/mm3 (0.7-4.5); Lymphocytes % 8.9 % (10-50); Mean Corpuscular Volume 96.9 fl (81-99); Mean Platelet Volume 8.1 fl (7.4-10.4); Monocytes % 6.5 % (1.7-9.3); Neutrophils # 12.8 K/mm3 (1.8-7.8); Platelet Count 249 K/mm3 (142-424); Red Blood Count 4.59 M/mm3 (4.20-5.40); Red Cell Distribution Width 14.3 % (11.5-17.5); White Blood Count 15.2 K/mm3 (4.8-10.8)
[2021-02-17 19:18] LABS: MANUAL DIFFERENTIAL MANUAL DIFFERENTIAL (MANUAL DIFF)
[2021-02-17 19:21] LABS: Alanine Aminotransferase 13 U/L (12-78); Albumin Level 3.4 g/dl (3.5-5.0); Albumin/Globulin Ratio 0.8 (1.1-1.8); Alkaline Phosphatase 94 U/L (38-126); Anion Gap 10.4 mEq/L (5-15); Aspartate Amino Transferase 22 U/L (14-36); Bilirubin,Total 1.8 mg/dl (0.2-1.3); Blood Urea Nitrogen 25 mg/dl (7-17); Calcium 8.8 mg/dl (8.4-10.2); Carbon Dioxide 31 mmol/L (22.0-30.0); Chloride 100 mmol/L (98-107); Creatinine Clearance Estimated 100 mL/min (50-200); Estimated Glomerular Filt Rate 43 ml/min (>60); GFR (African American) 52 ML/MIN (>60); Globulin 4.1 g/dL (1.3-3.2); Glucose 106 mg/dl (74-100); Lipase < 10 U/L (23-300); Potassium 3.4 mmoL/L (3.5-5.1); Sodium 138 mmol/L (136-145); Total Protein,Serum 7.5 g/dl (6.3-8.2)
[2021-02-17 19:24] LABS: Hypochromasia 1+; Lymphocytes % 8 % (10-50); Monocytes % 4 % (2-9); Neutrophils % 78 % (42-76); Platelet Estimate Normal; Total Cells Counted 100
--- NOTE | 2021-02-17 21:04 | PC.NURSE ---
paged dr trevino @ this time
[2021-02-17 21:59] LABS: Lactic Acid 1.2 mmol/L (0.7-2.1)
[2021-02-18] VITALS: BP 108/63; PULSE 80; RESP 17; TEMP 36.4; O2SAT 95
--- NOTE | 2021-02-18 00:42 | PC.NURSE ---
2315: PATIENT GIVEN CHICKEN NOODLE SOUP, CRACKERS AND A SOFT DRINK.
--- NOTE | 2021-02-18 02:09 | PC.NURSE ---
ORDER FOR BLOOD CULTURES RE-ENTERED BY THIS RN PER HS. LAB UNABLE TO SEE ORDER.
--- NOTE | 2021-02-18 02:18 | PC.NURSE ---
lab at bedside
[2021-02-18 04:00] VITALS: BP 119/65; PULSE 74; RESP 16; TEMP 36.6; O2SAT 93
--- NOTE | 2021-02-18 07:19 | P.CONPHA_ITS ---
[facility] Pharmacy VTE Monitoring - Patient Demographics Admission date: 02/17/21 Report Date: 02/18/21 Time: 07:19 Allergies/Adverse Reactions: Patient Allergies nitrofurantoin [From MACROBID] Allergy (Severe, Verified 08/30/20 15:15) S-DIFF. BREATHING metronidazole Allergy (Intermediate, Verified 08/30/20 15:15) codeine [CODEINE] Allergy (Unknown, Verified 08/30/20 15:15) Height: 1.73 cm Weight: 122.47 kg Patient Problems: Current Active Problems Dizziness (Acute) - VTE Risk Labs: VTE Related Lab Results Hgb 13.8 g/dL (12.2-16.2) 02/17/21 19:00 Hct 44.5 % (37.0-47.0) 02/17/21 19:00 Plt Count 249 K/mm3 (142-424) 02/17/21 19:00 BUN 25 mg/dl (7-17) H 02/17/21 19:00 Creatinine 1.30 mg/dl (0.52-1.04) H 02/17/21 19:00 Estimated Creat Clear 100 mL/min (50-200) 02/17/21 19:00 Was VTE Risk Assessment Performed: Yes VTE Score: 5 VTE Risk Level: Low Risk - Prophylaxis VTE Prophylaxis Ordered?: Yes Types of VTE Prophylaxis: TEDS Knee High Location of Applied Device: Bilateral Lower Extremeties
--- NOTE | 2021-02-18 07:46 | HMH.PHAINT ---
MEDICATION RECONCILIATION COMPLETE USING SURESCRIPTS AND PREVIOUS DISCHARGE
--- NOTE | 2021-02-18 07:54 | HMH.PHAINT ---
VERIFIED HOME MEDICATION LIST USING LIST FROM [facility] AND PT INTERVIEW
[2021-02-18 08:30] VITALS: BP 98/52; PULSE 79; RESP 16; TEMP 36.8; O2SAT 90
--- NOTE | 2021-02-18 08:47 | HMH.HP ---
*Admission Date: 02/17/21 *Chief complaint: Abdominal pain and GI distress *History of present illness: Medical Decision Narrative: Discussed with patient and recommended transfer to the ED due to patient complaints/symptoms and blood pressure being on the low side patient declined states that at times her blood pressure runs low and she would not be transferred to ED discussed blood work and she declined states that she would follow up with her family doctor tomorrow if needed Patients blood pressure rechecked and found to be 93/45 discussed with patient again and recommended transfer to the ED and at this time she agreed with transfer States that she is feeling worse since arrival so she agreed with transfer to the ED Called ED report given and patient moved to ED room 7 (Loan Aldrich) Mrs. Spain is a 50-year-old female with past medical history for morbid obesity, T2DM, HTN, HLD and multiple other comorbidities who presents to the urgent care center for Covid analysis found to have left-sided flank pain and hypotension. Patient is transferred to the emergency department due to symptoms. Patient is hypotensive on arrival but hemodynamically stable. Physical exam remarkable for a lethargic appearing female with severe left-sided flank pain. Abdomen is nonperitoneal ache no rebound or guarding. Pulmonary exam no obvious abnormalities noted however body habitus makes exam difficult to assess. No obvious wheezing or diminished breath sounds noted. Patient is swabbed for Covid which is negative. Basic labs, troponin, UA, lipase, lactic acid, CT abdomen and pelvis are obtained for further analysis results remarkable for positive UA. CT abdomen and pelvis concerning for pyelonephritis along with a left renal colliculi. Patient is started on Rocephin and administered 1 L of lactated Ringer's IV. Patient is started on 125 mils per hour lactated Ringer's maintenance fluid. Patient is given 4 mg IV morphine for pain control and started on tamsulosin 0.4 mg. Patient admitted to the hospitalist for further management. Above note per ER work-up. Patient was admitted for ceftriaxone therapy and fluids. This morning she feels better, labs are pending for this morning. Urine culture pending. [facility] History I have reviewed the patient's past medical history: Yes Medical History: Reports:: Anxiety, Cancer, Hypertension, Peripheral Artery Disease, Peripheral Vascular Disease Denies:: Diabetes Mellitus Type 1, Diabetes Mellitus Type 2 *Have you ever received a pneumonia vaccine?: No *Have you received a flu vaccine this season?: No Other Medical History: Reports: Arthritis, Hypothyroidism, Radiation Therapy, Thyroid Disease Laterality Cases: Right: Total Hip Replacement, Bilateral: Other Other Surgeries: Yes: Appendectomy, Cardiac Catheterization, Dilation and Curettage, Hernia Repair, Hysterectomy-Total, Thyroidectomy Amputation: No Fractures: No - *Social History Last grade of school completed: 9th or 10th Smoking Status: Current every day smoker Tobacco Type: cigarettes # Packs/Day (cigarettes): 1 Alcohol Intake: never Substance Use Type: denies use *Occupational Status:: disabled Housing: house Household Members: spouse, children *Travel in the last 8 weeks: None - Psychiatric History Pschychiatric History:: Reports:: Anxiety Family Hx:: Asthma, Hypertension, Kidney Disease, Thyroid Disorder Review of Systems - Review of Systems Review of systems:: pertinent systems reviewed and negative unless documented below Patient reports some exacerbation of her chronic back pain. - *Neurologic Reports unsteadiness, Reports dizziness, Denies confusion, Denies seizure-like activity, Denies fainting Meds Home Medications Medication Instructions Recorded Confirmed Type diazepam 10 mg tablet 10 mg PO TID 08/19/17 02/18/21 History lisinopril 5 mg tablet 5 mg PO DAILY tab 08/19/17 02/18/21 History meloxicam 15 mg tablet 15 mg PO DAILY 09/30/
[2021-02-18 09:46] LABS: Basophils % 0.2 % (0.1-2.0); Eosinophils # 0.1 K/mm3 (0.0-0.4); Eosinophils % 0.5 % (0.1-12.0); Hematocrit 44.7 % (37.0-47.0); Hemoglobin 13.3 g/dL (12.2-16.2); Lymphocytes # 1.3 K/mm3 (0.7-4.5); Lymphocytes % 10.3 % (10-50); Mean Corpuscular HGB Conc 29.7 g/dL (31.8-35.4); Mean Corpuscular Hemoglobin 29.4 pg (27.0-31.2); Mean Platelet Volume 7.9 fl (7.4-10.4); Monocytes # 0.7 K/mm3 (0.1-1.0); Monocytes % 5.6 % (1.7-9.3); Neutrophils # 10.2 K/mm3 (1.8-7.8); Neutrophils % 83.4 % (37.0-80.0); Platelet Count 267 K/mm3 (142-424); Red Blood Count 4.51 M/mm3 (4.20-5.40); White Blood Count 12.2 K/mm3 (4.8-10.8)
[2021-02-18 09:55] LABS: Chloride 103 mmol/L (98-107); Sodium 141 mmol/L (136-145)
[2021-02-18 09:56] LABS: Potassium 3.4 mmoL/L (3.5-5.1)
[2021-02-18 09:58] LABS: Blood Urea Nitrogen 18 mg/dl (7-17); Creatinine Clearance Estimated 130 mL/min (50-200); Estimated Glomerular Filt Rate 59 ml/min (>60); GFR (African American) 71 ML/MIN (>60)
[2021-02-18 09:59] LABS: Anion Gap 9.4 mEq/L (5-15); Calcium 8.3 mg/dl (8.4-10.2); Carbon Dioxide 32 mmol/L (22.0-30.0); Glucose 122 mg/dl (74-100)
[2021-02-18 16:00] VITALS: BP 112/49; PULSE 78; RESP 16; TEMP 36.6; O2SAT 97
--- NOTE | 2021-02-18 16:03 | HMH.CONS ---
*Admission Date: 02/17/21 *Reason for consult:: Left ureteral stone *History of present illness: Patient is a 50-year-old white female admitted through the emergency room yesterday. Patient states she began having left flank pain that radiated down to her groin the day prior to the admission. Patient was admitted for pain control. CT scan was performed that showed a 7 mm stone in the left distal ureter and evidence of pyelonephritis in the kidney. No hydronephrosis was noted. Patient's white count is 15.2 creatinine was 1.3 on admission. On exam today she appeared comfortable but did state she had discomfort through the night. She is on Percocet 3 times daily at home for some chronic pain. She is on antibiotics at present in her urine did appear to be infected. [facility] History Medical History: Reports:: Anxiety, Cancer, Hypertension, Peripheral Artery Disease, Peripheral Vascular Disease Denies:: Diabetes Mellitus Type 1, Diabetes Mellitus Type 2 *Have you ever received a pneumonia vaccine?: No *Have you received a flu vaccine this season?: No Other Medical History: Reports: Arthritis, Hypothyroidism, Radiation Therapy, Thyroid Disease Laterality Cases: Right: Total Hip Replacement, Bilateral: Other Other Surgeries: Yes: Appendectomy, Cardiac Catheterization, Dilation and Curettage, Hernia Repair, Hysterectomy-Total, Thyroidectomy Amputation: No Fractures: No - *Social History Last grade of school completed: 9th or 10th Smoking Status: Current every day smoker Tobacco Type: cigarettes # Packs/Day (cigarettes): 1 Alcohol Intake: never Substance Use Type: denies use *Occupational Status:: disabled Housing: house Household Members: spouse, children *Travel in the last 8 weeks: None - Psychiatric History Pschychiatric History:: Reports:: Anxiety Family Hx:: Asthma, Hypertension, Kidney Disease, Thyroid Disorder Review of Systems - Review of Systems Review of systems:: pertinent systems reviewed and negative unless documented below - *Neurologic Reports unsteadiness, Reports dizziness, Denies confusion, Denies seizure-like activity, Denies fainting Meds Home Medications Medication Instructions Recorded Confirmed Type diazepam 10 mg tablet 10 mg PO TID 08/19/17 02/18/21 History lisinopril 5 mg tablet 5 mg PO DAILY tab 08/19/17 02/18/21 History meloxicam 15 mg tablet 15 mg PO DAILY 09/30/18 02/18/21 History oxycodone-acetaminophen 10 mg-325 1 tab PO Q6HP PRN tab 02/06/20 02/18/21 History mg tablet Gabapentin [Neurontin 600mg 600 mg PO 0900,1200 10/31/20 02/18/21 History tablet] Levothyroxine Sodium [Synthroid 150 mcg PO DAILY 10/31/20 02/18/21 History 150mcg (0.15mg) tablet] Albuterol Sulfate [Albuterol 17 gm IH Q4HP PRN 02/18/21 02/18/21 History Sulfate Hfa] Gabapentin [Neurontin 600mg 1,200 mg PO HS 02/18/21 02/18/21 History tablet] Allergies Allergy/AdvReac Type Severity Reaction Status Date / Time nitrofurantoin Allergy Severe S-DIFF. Verified 08/30/20 15:15 [From MACROBID] BREATHING metronidazole Allergy Intermediate Verified 08/30/20 15:15 codeine [CODEINE] Allergy Unknown Verified 08/30/20 15:15 Exam Vital signs and Labs for Last 24 Hours: Temp Pulse Resp BP Pulse Ox 98.3 F 79 16 98/52 L 90 L 02/18/21 08:30 02/18/21 08:30 02/18/21 08:30 02/18/21 08:30 02/18/21 08:30 Laboratory Results - last 24 hr 02/17/21 17:30: SARS-CoV-2 (PCR) Not detected, Influenza A Untype (PCR) Not detected, Influenza Type B (PCR) Not detected 02/17/21 18:28: Urine Color Brown, Urine Appearance Cloudy, Urine pH 5.5, Ur Specific Hawks >= 1.030, Urine Protein 2+, Urine Glucose (UA) Negative, Urine Ketones Trace, Urine Blood Trace-i, Urine Nitrate Positive, Urine Bilirubin 3+ A, Urine Urobilinogen 4.0, Ur Leukocyte Esterase 2+ A, Urine RBC 3-5, Urine WBC 50-100, Ur Squamous Epith Cells 20-50 02/17/21 19:00: WBC 15.2 H, RBC 4.59, Hgb 13.8, Hct 44.5, MCV 96.9, MCH 30.0, MCHC 31.0 L,
--- NOTE | 2021-02-18 16:35 | PC.NURSE ---
Routine reassessment completed. No acute changes from previous assessment. Pt. requests to get up to shower. Nurse v/u. IV Saline locked and covered with coban, shower supplies brought into shower. Pt. denies further needs, and will continue to monitor.
--- NOTE | 2021-02-18 17:14 | PC.NURSE ---
Pt. out of shower, dinner tray provided. Pt. denies further needs, will continue to monitor.
[2021-02-18 20:00] VITALS: BP 150/83; PULSE 72; RESP 17; TEMP 36.9; O2SAT 96
[2021-02-19] VITALS (16 sets, daily range): BP systolic 120–200; BP diastolic 68–100; PULSE 65–90; RESP 14–20; TEMP 36.4–37.6; O2SAT 90–98
--- NOTE | 2021-02-19 04:28 | PC.NURSE ---
PATIENT HAS DONE WELL THIS SHIFT. SHE HAS RESTED COMFORTABLY AND HAD MINIMAL DISCOMFORT. AMBULATED INDEPENDENTLY TO BATHROOM. ALL URINE STRAINED. NO STONES PASSED. SMALL SEDIMENT NOTED WITH URINE. LUNGS CTAB. NON-PRODUCTIVE COUGH PRESENT. PATIENT NPO SINCE MIDNIGHT. IV INFUSING WELL. VSS. CALL LIGHT IN REACH
[2021-02-19 06:55] LABS: Basophils % 0.3 % (0.1-2.0); Eosinophils # 0.1 K/mm3 (0.0-0.4); Hematocrit 43.2 % (37.0-47.0); Hemoglobin 12.6 g/dL (12.2-16.2); Lymphocytes # 1.8 K/mm3 (0.7-4.5); Mean Corpuscular HGB Conc 29.3 g/dL (31.8-35.4); Mean Corpuscular Volume 99.1 fl (81-99); Mean Platelet Volume 7.2 fl (7.4-10.4); Monocytes # 0.7 K/mm3 (0.1-1.0); Monocytes % 7.3 % (1.7-9.3); Neutrophils # 7.2 K/mm3 (1.8-7.8); Neutrophils % 73.5 % (37.0-80.0); Platelet Count 285 K/mm3 (142-424); Red Blood Count 4.36 M/mm3 (4.20-5.40); White Blood Count 9.8 K/mm3 (4.8-10.8)
[2021-02-19 07:11] LABS: Chloride 102 mmol/L (98-107); Sodium 141 mmol/L (136-145)
[2021-02-19 07:12] LABS: Potassium 3.5 mmoL/L (3.5-5.1)
[2021-02-19 07:14] LABS: Blood Urea Nitrogen 12 mg/dl (7-17); Creatinine Clearance Estimated 163 mL/min (50-200); Estimated Glomerular Filt Rate 76 ml/min (>60); GFR (African American) 92 ML/MIN (>60)
[2021-02-19 07:15] LABS: Anion Gap 10.5 mEq/L (5-15); Calcium 8.2 mg/dl (8.4-10.2); Carbon Dioxide 32 mmol/L (22.0-30.0); Glucose 99 mg/dl (74-100)
--- NOTE | 2021-02-19 08:50 | HMH.ACPN2 ---
Internal Medicine - PN: Subj *Date: 02/19/21 *Time: 08:50 Exam Vital signs and Labs for Last 24 Hours: Temp Pulse Resp BP Pulse Ox 99.6 F 65 17 156/78 H 93 L 02/19/21 06:53 02/19/21 04:00 02/19/21 04:00 02/19/21 04:00 02/19/21 04:00 Laboratory Results - last 24 hr 02/18/21 09:37: WBC 12.2 H, RBC 4.51, Hgb 13.3, Hct 44.7, MCV 99.0, MCH 29.4, MCHC 29.7 L, RDW 14.0, Plt Count 267, MPV 7.9, Neut % (Auto) 83.4 H, Lymph % (Auto) 10.3, Hendricks % (Auto) 5.6, Eos % (Auto) 0.5, Baso % (Auto) 0.2, Neut # (Auto) 10.2 H, Lymph # (Auto) 1.3, Hendricks # (Auto) 0.7, Eos # (Auto) 0.1, Baso # (Auto) 0.0 02/18/21 09:37: Sodium 141, Potassium 3.4 L, Chloride 103, Carbon Dioxide 32 H, Anion Gap 9.4, BUN 18 H D, Creatinine 1.00 D, Estimated Creat Clear 130, Estimated GFR 59, Est GFR ( Amer) 71 D, Glucose 122 H, Calcium 8.3 L 02/19/21 06:35: WBC 9.8, RBC 4.36, Hgb 12.6, Hct 43.2, MCV 99.1 H, MCH 29.0, MCHC 29.3 L, RDW 14.0, Plt Count 285, MPV 7.2 L, Neut % (Auto) 73.5, Lymph % (Auto) 18.0, Hendricks % (Auto) 7.3, Eos % (Auto) 1.0, Baso % (Auto) 0.3, Neut # (Auto) 7.2, Lymph # (Auto) 1.8, Hendricks # (Auto) 0.7, Eos # (Auto) 0.1, Baso # (Auto) 0.0 02/19/21 06:35: Sodium 141, Potassium 3.5, Chloride 102, Carbon Dioxide 32 H, Anion Gap 10.5, BUN 12 D, Creatinine 0.80, Estimated Creat Clear 163, Estimated GFR 76, Est GFR ( Amer) 92 D, Glucose 99, Calcium 8.2 L I & O for Last 24 hours: Intake & Output 02/16/21 02/17/21 02/18/21 02/19/21 23:59 23:59 23:59 23:59 Intake Total 360 / 360 Output Total 600 / 1000 400 / 400 Balance -240 / -640 -400 / -400 Weight 122.47 kg Microbiology Reports for the Last 24 Hours: Microbiology 02/17/21 18:28 Urine,Clean Catch Urine Culture - Preliminary NO GROWTH AFTER 24 HOURS Assessment and Plan (1) Pyelonephritis Status: Acute Category: Medical Code(s): N12 - Tubulo-interstitial nephritis, not specified as acute or chronic (2) Nephrolithiasis Status: Acute Category: Medical Code(s): N20.0 - Calculus of kidney (3) Urinary tract infection Status: Acute Category: Medical Code(s): N39.0 - Urinary tract infection, site not specified (4) Ureteral calculus, left Status: Acute Category: Medical Code(s): N20.1 - Calculus of ureter
--- NOTE | 2021-02-19 10:45 | PC.NURSE ---
Pt. reports feeling frustrated with not receiving pain medication every 6 hours like she takes at home, Order for Percocet is Q8hrs PRN. Nurse informed pt. nurse can call MD and ask for it to be given q6 hours instead. Pt. v/u. and reports she needs to take her lisinopril, it gives her a headache when she doesn't take it. Nurse informed pt. Lisinopril has been reordered as BP is no longer low, and that it was held because her BP was low on admission. Lisinopril given. IV noted to be leaking, upon further inspection, IV noted to be infiltrated. Nurse removed, and held pressure with 2x2. Nurse attempt to place new IV site, unsuccessfully. Pt. requesting to go home. stating she is frustrated with care. Pt. reports she has a sore throat, throat noted to have white/yellow spots on it. Nurse informed pt. nurse can notify MD. Nurse offered to have second RN place RN. Pt. states i'm just gonna go home. Nurse informed pt. of importance of having surgery to help with pain from kidney stone. Pt. states nah i'm just gonna go home . Nurse left room to notify MD pt. wishes to leave.
--- NOTE | 2021-02-19 10:55 | PC.NURSE ---
Spoke with Dr. Gomez regarding pt. wanting to go home. reports he will be over to speak with pt.
--- NOTE | 2021-02-19 11:00 | PC.NURSE ---
in room, speaking with pt.
--- NOTE | 2021-02-19 11:20 | PC.NURSE ---
Pt.states if we are going to do the surgery then let's go, but whether it be before or after the surgery i'm going home today. Nurse and MD. V/U. and nurse if preparing pt. to go down for surgery. as Pre-op is ready for pt. reports to let pre-op and anesthesia place IV as pt. arms are sore from previous IV's and swelling. Nurse v/u. Nurse notified Pre-op of this.
--- NOTE | 2021-02-19 11:36 | HMH.ANESCL ---
[facility] Anesthesia Checklist - Patient Identification Patient Identification: Arm Band - Structural Data Admitted From: Inpatient Planned Operative Procedure/s: Ureteroscopy Consent for Planned Operative Procedure(s) Verified: Yes - NPO Status Verified Time NPO: 00:00 - Airway Assessment C-Spine Mobility Assessed: Yes TMJ Mobility Assessed: Yes Dentition: Edentulous (Very small mouth opening, large neck circumference) - Neurological Assessment Level of Consciousness: Awake Hx Seizures: No Numbness or tingling in extremities: No - Anesthesia Plan Anesthesia Risk discussed: Yes Anesthesia Plan: Verified ASA Class: III Anesthesia Type: General [facility] History I have reviewed the patient's past medical history: Yes Medical History: Reports:: Anxiety, Cancer, Hypertension, Peripheral Artery Disease, Peripheral Vascular Disease Denies:: Diabetes Mellitus Type 1, Diabetes Mellitus Type 2 *Have you ever received a pneumonia vaccine?: No *Have you received a flu vaccine this season?: No Other Medical History: Reports: Arthritis, Hypothyroidism, Radiation Therapy, Thyroid Disease Anesthesia experience/problems:: None Laterality Cases: Right: Total Hip Replacement, Bilateral: Other Other Surgeries: Yes: Appendectomy, Cardiac Catheterization, Dilation and Curettage, Hernia Repair, Hysterectomy-Total, Thyroidectomy Amputation: No Fractures: No - *Social History Last grade of school completed: 9th or 10th Smoking Status: Current every day smoker Tobacco Type: cigarettes # Packs/Day (cigarettes): 1 Alcohol Intake: never Substance Use Type: denies use *Occupational Status:: disabled Housing: house Household Members: spouse, children *Travel in the last 8 weeks: None - Psychiatric History Pschychiatric History:: Reports:: Anxiety Family Hx:: Asthma, Hypertension, Kidney Disease, Thyroid Disorder
--- NOTE | 2021-02-19 11:45 | PC.NURSE ---
Pt. to surgery via bed, accompanied by Pre-op staff.
--- NOTE | 2021-02-19 13:15 | P.PN_ITS ---
[facility] Anesthesia Record Part I Intake, IV Amount: 500 Estimated blood loss (mL): 5 Urine output (mL): 0 Blood Pressure: 200/100 SaO2: 95 Pulse Rate: 90 Respiratory Rate: 16 Temperature: 97.9 F Patient is:: Drowsy, Mask O2 Stable to PACU at:: 13:22
--- NOTE | 2021-02-19 13:19 | XR_ITS ---
PROCEDURE: XR KUB CLINICAL INDICATION: STENT PLACED IN THE OR COMPARISON: CR KUB KUB (SINGLE VIEW) from 05/23/2014 FINDINGS: Fluoroscopy time: 0.21 minutes. Two images are submitted demonstrating a left ureteral stent in place with the proximal aspect curled in the left paraspinal region at L2-L3 in the region of the left renal pelvis. The distal aspect is curled in the region of the urinary bladder. IMPRESSION: Status post stent placement with fluoroscopic assistance Dictated by: Jose Dixon MD 02/19/2021 16:13 Jose Dixon MD in OV 02/19/2021 16:13
--- NOTE | 2021-02-19 13:25 | SUR.PHASEI ---
Pt requested that staff call at home to let him know when she was finished with surgery. Attempted to call 2 times. No answer. Unable to leave message.
--- NOTE | 2021-02-19 13:48 | SUR.PHASEI ---
1341- detailed report called to lilibeth rodriges in OB at this time.
--- NOTE | 2021-02-19 13:48 | HMH.DCSUM ---
General - General Admission date:: 02/17/21 Discharge date: 02/19/21 HPI HPI: Medical Decision Narrative: Discussed with patient and recommended transfer to the ED due to patient complaints/symptoms and blood pressure being on the low side patient declined states that at times her blood pressure runs low and she would not be transferred to ED discussed blood work and she declined states that she would follow up with her family doctor tomorrow if needed Patients blood pressure rechecked and found to be 93/45 discussed with patient again and recommended transfer to the ED and at this time she agreed with transfer States that she is feeling worse since arrival so she agreed with transfer to the ED Called ED report given and patient moved to ED room 7 (Loan Aldrich) Mrs. Spain is a 50-year-old female with past medical history for morbid obesity, T2DM, HTN, HLD and multiple other comorbidities who presents to the urgent care center for Covid analysis found to have left-sided flank pain and hypotension. Patient is transferred to the emergency department due to symptoms. Patient is hypotensive on arrival but hemodynamically stable. Physical exam remarkable for a lethargic appearing female with severe left-sided flank pain. Abdomen is nonperitoneal ache no rebound or guarding. Pulmonary exam no obvious abnormalities noted however body habitus makes exam difficult to assess. No obvious wheezing or diminished breath sounds noted. Patient is swabbed for Covid which is negative. Basic labs, troponin, UA, lipase, lactic acid, CT abdomen and pelvis are obtained for further analysis results remarkable for positive UA. CT abdomen and pelvis concerning for pyelonephritis along with a left renal colliculi. Patient is started on Rocephin and administered 1 L of lactated Ringer's IV. Patient is started on 125 mils per hour lactated Ringer's maintenance fluid. Patient is given 4 mg IV morphine for pain control and started on tamsulosin 0.4 mg. Patient admitted to the hospitalist for further management. Above note per ER work-up. Patient was admitted for ceftriaxone therapy and fluids. This morning she feels better, labs are pending for this morning. Urine culture pending. Hospital Course Hospital Course: 50-year-old female admitted for severe flank pain and pyelonephritis secondary to obstructing left ureteral calculi. Patient started on IV antibiotics and pain control. Urology consulted, recommended monitoring for 24 hours but if no passage, proceeding with removal of kidney stone and placement of stent. Patient continued to have pain and discomfort during hospitalization, taken to the OR for stone removal and stent placement on day of discharge. Tolerated procedure well. -Transition antibiotics to Omnicef to complete 7 days total of antibiotics. -We will follow-up later this week with urology for reevaluation and possible stent removal -Follow-up with primary care doctor within the next 2 weeks to monitor for resolution of symptoms Resume home medications for blood pressure, hypothyroidism, and chronic pain. Examined on day of discharge. Medically stable for discharge home. Rhogam Administration: Not Indicated Objective Vital signs: Temp Pulse Resp BP Pulse Ox 98.1 F 78 16 154/71 H 95 02/19/21 13:42 02/19/21 13:42 02/19/21 13:42 02/19/21 13:42 02/19/21 13:42 Narrative: - Constitutional Mild distress, morbidly obese, irritable on interview this morning - *Routine HEENT Exam Head: Present: normocephalic Eye: Present: EOMI, PERRL ENT: Present: mucous membranes moist - *Routine Neck Exam Present: supple. Absent: lymphadenopathy - *Routine Respiratory Exam Present: CTA bilaterally - *Routine Cardiovascular Exam Present: RRR - *Routine Abdominal Exam Present: soft, normoactive bowel sounds, tenderness (mild tenderness in left lower quadrant and flank) - *Routine Extremities Exam Absent: cyanos
--- NOTE | 2021-02-19 14:05 | HMH.OPNOTE ---
Date of procedure: 02/19/21 Pre-op Diagnosis:: Left ureteral stone Post-op Diagnosis:: Left ureteral stone, left ureteral stenosis Procedure performed:: Left ureteroscopy, laser lithotripsy, stone extraction, left stent placement Surgeon:: Hemant Zamudio MD COMMUNITY ENGAGEMENT SPECIALIST:: Other (sandi de la rosa) Anesthesia: LMA Estimated blood loss (mL): 0 Clinical Note:: 50-year-old white female admitted with left renal colic noted to have a 7 mm distal left ureteral stone. Operative findings:: Patient with 7 mm ureteral stone and evidence of ureteral stenosis around the stone as well as a stenotic left ureteral orifice Operative note:: Patient taken to the operating room after informed consent was obtained. She was placed on the operating table and general anesthesia administered. She had been on preoperative Rocephin. Sequential compression devices were placed. She was placed into the dorsal lithotomy position and prepped draped in a standard surgical fashion. A 22 David passed into the urethra and into the bladder. The bladder was examined in a systematic fashion and showed signs of cystitis cystica. No mucosal abnormalities, stones, diverticula or trabeculation noted. The ureteral orifices were in their normal anatomic position. A 0.035 sensor guidewire was passed through the left ureteral orifice and into the left renal pelvis without difficulty. Fluoroscopy revealed a faint calcification in the region of the upper portion of the distal ureter. The left ureteral orifice was a bit stenotic and a 4 x 15 mm UroMax balloon dilator was placed through the cystoscope and the distal ureter dilated to 12 allison for 3 minutes. The balloon then deflated and removed. The cystoscope was removed. The ureteroscope was then passed into the urethra and into the bladder and up to left ureteral orifice to the level of the stone. There is a lot of ureteral edema around the stone and it was felt it cannot be removed in 1 piece. The 200 nm laser fiber was passed through the scope and the stone broken into smaller fragments. A 2.4 Colombian stone basket was then used to remove the larger fragments. The ureteroscope was then removed and the cystoscope was backloaded over the guidewire and a 4.8 x 24 Colombian stent placed. Patient tolerated the procedure well and no complications. Urojet was placed into the urethra afterwards for comfort measures. She was discharged to the recovery room in stable condition. Condition: stable Disposition: PACU Specimens:: Stone fragment Complications:: None
--- NOTE | 2021-02-19 14:32 | HMH.PHAINT ---
MEDICATION DISCHARGE COUNSELING COMPLETE. PATIENT ASKED QUESTION ABOUT HAVING MEDS BROUGHT UP TO HER ROOM. THE NURSE SAID SHE WOULD GRAB THE PAPER FOR HER TO SIGN AND GET THAT DONE FOR HER
--- NOTE | 2021-02-19 14:45 | PC.NURSE ---
Nurse to pt. room to sign meds to beds, IV noted to be pulled out. Pt. states i didn't mean to pull it out, but it came out when i was trying to loosen up to tape. 2X2 with coban in place.
--- NOTE | 2021-02-19 15:55 | PC.NURSE ---
Discharge education provided. questions encouraged and answered. Pt. v/u.
--- NOTE | 2021-02-19 16:10 | PC.NURSE ---
Pt. left unit ambulatory, per pt. request, accompanied by spouse.
== END 2021-02-19 16:10 | disposition home or self-care (01) | DRG 660 ==
LOC: UTC 18:07 → ER 18:19 → OB 23:38 → 2ND 02-18 11:54
PROVIDERS: Internal Medicine Adolescent Medicine; Urology; Admitting Provider Internal Medicine Adolescent Medicine; Emergency Provider Student in an Organized Health Care Education/Training Program; PCP Family Medicine; Visit Provider Internal Medicine Adolescent Medicine
PROC: 0T778DZ Dilation of Left Ureter with Intraluminal Device, Via Natural or Artificial Opening Endoscopic (ICD-10-PCS; CPT 52352; principal; 2021-02-19 11:30)
DX: N20.1 Calculus of ureter (principal); N12 Tubulo-interstitial nephritis, not specified as acute or chronic; N39.0 Urinary tract infection, site not specified; F17.210 Nicotine dependence, cigarettes, uncomplicated; Z20.822 Contact with and (suspected) exposure to COVID-19; I10 Essential (primary) hypertension; Z79.899 Other long term (current) drug therapy
CPT/HCPCS: 52356; 52352; 36415; 74018; 74177; 76000; 80048; 80053; 81001; 83605; 83690; 85007; 85025; 87040; 87086; 87088; 87186; 96365; 96367; 96375; 99284; C2617; C9803; J2405; Q9967; U0003; U0005

== ENCOUNTER → 2021-02-21 14:20 | Outpatient (CLI) | payer MEDICARE, MEDICAID, SELFPAY ==
[2021-02-21 15:49] LABS: Free T4 (Free Thyroxine) 1.57 ng/dl (0.78-2.19)
[2021-02-21 16:04] LABS: Thyroid Stimulating Hormone 7.01 uIU/mL (0.465-4.68)
== END ==
PROVIDERS: Visit Provider Otolaryngology
DX: E03.9 Hypothyroidism, unspecified (principal)
CPT/HCPCS: 36415; 84439; 84443

== ENCOUNTER → 2021-08-12 14:26 | Outpatient (CLI) | payer MEDICARE, MEDICAID, SELFPAY ==
--- NOTE | 2021-08-12 14:29 | CA_ITS ---
APPROVED REPORT EXAM: Comprehensive 2D, Doppler, and color-flow Echocardiogram Senior Clinical Data Analyst: Yesenia Roblero CRT Ht: 5 ft 9 in Wt: 287lbs BSA: 2.41 BP: 140/71 mmHg Indications: Chest Pain, Shortness of Breath, Palpitations, Hyperlipidemia, Hypertension/HDD, SMOKER 2D Dimensions LVOT 2.02 cm (M/F) 1.5-2.5 LA Volume 31.80 mL LA Volume Index 13.20 mL/m2 (M/F) 16-34 M-Mode Dimensions RVDd 3.35 cm (0.9-2.6) LA Diam 3.96 cm (1.9-4.0) LVDd 5.34 cm (3.5-5.7) Ao Diam 4.22 cm (2.0-3.7) LVDs 3.39 cm (3.5-5.7) IVSd 1.32 cm (0.6-1.1) PWd 0.59 cm (0.6-1.1) EF (Teich) 65.80% FS 36.50% EDV (Teich) 137.70 mL TAPSE 1.88 (<1.7) ESV (Teich) 47.10 mL LV Diastology E Decel Time 213.00 (160-240 msec) E/A Ratio 0.77 MED E' 4.30 (< 7 cm/sec) MED A' 7.80 cm/s E'/MED E' Ratio 15.16 (>14) LAT E' 7.00 (<10 cm/sec) LAT A' 13.20 cm/s E/LAT E' Ratio 9.31 (>14) Aortic Valve AO Peak GR. 6.50 mmHg Mitral Valve MV A Velocity 85.00 (40-130 cm/s) E/A Ratio 0.77 MV Decel. Time 213.00 (160-240 ms) Pulmonary Valve PV Peak Velocity 93.00 (50-150 cm/s) Tricuspid Valve TR P. Velocity 130.00 cm/s RAP Estimate 10.00 mmHg RVSP 16.80 mmHg Left Ventricle Technically difficult study because of the patient factors and poor acoustic windows. Left atrium is mildly enlarged, left ventricle is normal size, mild concentric left ventricular hypertrophy, estimated ejection fraction 55% with no regional wall motion abnormality, grade 1 diastolic dysfunction seen without tissue Doppler evidence of raise left atrial pressure. Right Ventricle Right atrium and right ventricle mildly enlarged with normal contractility. Aortic Valve Aortic valve is minimally thickened and fibrosed there is no aortic stenosis or aortic insufficiency. Mitral Valve Mitral valve is grossly normal, there is trace mitral regurgitation. Tricuspid Valve Tricuspid grossly normal, there is trace tricuspid regurgitation, tricuspid regurgitation jet velocity is inadequate for calculation of the right ventricular systolic pressure. Pulmonic Valve Pulmonic valve is poorly visualized. Great Vessels Aortic root is normal size. Inferior vena cava is poorly visualized. Pericardium No significant pericardial effusion. Conclusion 1. Mild biatrial enlargement, normal left ventricular size, mild concentric left ventricular hypertrophy, estimated ejection fraction 55% with no regional wall motion abnormality, grade 1 diastolic dysfunction without tissue Doppler evidence of raise left atrial pressure. 2. Trace mitral and tricuspid regurgitation. 3. No significant pericardial effusion. 4. Inferior vena cava is poorly visualized. Electronically signed by : Kristofer Alcantara MD 08/12/2021 21:15:05
== END ==
PROVIDERS: PCP Family Medicine; Visit Provider Nurse Practitioner Family
DX: R00.2 Palpitations (principal); R42 Dizziness and giddiness; E78.5 Hyperlipidemia, unspecified; F17.200 Nicotine dependence, unspecified, uncomplicated; G47.33 Obstructive sleep apnea (adult) (pediatric); I10 Essential (primary) hypertension; I73.9 Peripheral vascular disease, unspecified; R06.00 Dyspnea, unspecified
CPT/HCPCS: 93270; 93306; G0399

== ENCOUNTER → 2021-09-12 14:21 | Outpatient (CLI) | payer MEDICARE, MEDICAID, SELFPAY ==
--- NOTE | 2021-09-12 14:22 | CT_ITS ---
FINAL REPORT CLINICAL HISTORY: . lung screening, current smoker , 1 1/2 packs x 40 years COMPARISON: CT abdomen and pelvis dated February 17, [address] chest dated September 23, 2016 FINDINGS: CT CHEST SCREENING CTDI vol (mGy): 2.90 DLP (mGy-cm): 109.42 Axial images were obtained from the lung apex to the mid abdomen by computed tomography. Low-dose protocol was utilized. FINDINGS: CHEST: There is no axillary adenopathy. The patient is status post thyroidectomy. There is no hilar or mediastinal adenopathy. The heart is proper size. There is no pericardial or pleural effusion. Limited images of the upper abdomen are unremarkable. Lung window images demonstrate several calcified granulomas. There is a right upper lobe nodule measuring 7 mm on image 31, stable. There is a left lower lobe nodule measuring 7 mm on image 60, stable. There is a 3 mm left lower lobe nodule on image 64, stable. There is no new mass or nodule identified. IMPRESSION: Lung RADS category 1. Recommend 12 month follow-up low-dose chest CT. Stable nodules as above. Reviewed, Interpreted and Dictated by Manny Ashby III, MD Transcribed by Ines Farmer Authenticated by Manny Ashby III, MD on 09/12/2021 04:49:24 PM [facility]
[2021-09-12 15:25] VITALS: PULSE 56; PULSE 61
== END ==
PROVIDERS: PCP Family Medicine; Visit Provider Internal Medicine Pulmonary Disease
DX: Z87.891 Personal history of nicotine dependence; Z12.2 Encounter for screening for malignant neoplasm of respiratory organs; R06.09 Other forms of dyspnea
CPT/HCPCS: 71271; 94060; 94618; 94640; 94727; 94729

== ENCOUNTER → 2021-12-03 13:47 | Outpatient (POV) | payer MEDICARE, MEDICAID, SELFPAY | PROVIDERS: Visit Provider Dermatology | DX: Z00.00 Encounter for general adult medical examination without abnormal findings (principal) ==

== ENCOUNTER → 2022-05-27 14:32 | Outpatient (CLI) | payer MEDICARE, MEDICAID, SELFPAY ==
[2022-05-27 15:44] LABS: Free T4 (Free Thyroxine) 1.44 ng/dl (0.78-2.19)
[2022-05-27 16:02] LABS: Thyroid Stimulating Hormone 6.94 uIU/mL (0.465-4.68)
[2022-05-29 23:20] LABS: Thyroglobulin IMA CHARGE YES; Thyroglobulin Level <1.0 IU/mL (0.0-0.9)
== END ==
PROVIDERS: PCP Family Medicine; Visit Provider Student in an Organized Health Care Education/Training Program
DX: I10 Essential (primary) hypertension (principal)
CPT/HCPCS: 36415; 84439; 84443; 86800

== ENCOUNTER → 2022-10-27 13:40 | Outpatient (CLI) | payer MEDICARE, MEDICAID, SELFPAY | PROVIDERS: PCP Family Medicine; Visit Provider Physician Assistant | DX: R00.2 Palpitations (principal) | CPT/HCPCS: 93225 ==

== ENCOUNTER → 2022-11-06 10:11 | Outpatient (CLI) | payer MEDICARE, MEDICAID, SELFPAY ==
[2022-11-06 12:15] LABS: Free T4 (Free Thyroxine) 1.28 ng/dl (0.78-2.19)
[2022-11-07 16:13] LABS: Thyroglobulin IMA CHARGE YES; Thyroglobulin Level <1.0 IU/mL (0.0-0.9)
== END ==
PROVIDERS: Student in an Organized Health Care Education/Training Program; PCP Family Medicine; Visit Provider Physician Assistant
DX: A41.9 Sepsis, unspecified organism (principal); E66.01 Morbid (severe) obesity due to excess calories; G47.33 Obstructive sleep apnea (adult) (pediatric); I49.3 Ventricular premature depolarization; J44.9 Chronic obstructive pulmonary disease, unspecified; R06.09 Other forms of dyspnea; R65.20 Severe sepsis without septic shock; R94.31 Abnormal electrocardiogram [ECG] [EKG]; Z68.41 Body mass index [BMI] 40.0-44.9, adult; Z72.0 Tobacco use; E03.9 Hypothyroidism, unspecified
CPT/HCPCS: 36415; 84439; 84443; 86800; 93306

== ENCOUNTER → 2023-01-14 12:48 | Outpatient (POV) | payer MEDICARE, MEDICAID, SELFPAY ==
--- NOTE | 2023-01-14 13:29 | EXP.PAIN.OV ---
HPI Data of Consult Patient: new to practice Consult date: 01/14/23 Requesting Physician: Jaida Reynolds APRN Primary Care Provider: Santana Schneider Consult Narrative Reason for consult: Low back pain, leg pain History of present illness: Ms. Spain is a 52 year old female who presents today as a new patient. She is a referral from Santana Schneider' office. Today she rates her pain a 4 out of 10. Patient states her pain is all in her low back and legs and describes it as a constant aching sensation with occasional sharp shooting pains. Patient does state this has been going on for at least 6 years and denies any specific trauma or injury that initially led to the symptoms. Patient does also states she does have bilateral knee pain and has had injections in the nose as well. Patient states she has tried [id number] medications such as Tylenol and ibuprofen along with heat and ice and topicals with no additional relief. Patient has had physical therapy just last year however because worsening symptoms and she was unable to continue her sessions. Patient does also state that she has tried chiropractor therapy with only a day or so relief. Patient was currently at [facility] spine for the last couple of years however she states they just recently they called for a pill count and that she was not able to go that day due to car trouble however she was going the very next morning and was told that she was being discharged. Patient states that she was getting gabapentin 600 mg 3 times a day along with Percocets 10 mg 3 times a day and meloxicam 15 mg from this office. She is requesting that we take over these medications. Patient states she also did a three-step series of injections at [facility] however provided no additional relief. Patient denies any recent imaging. Patient denies any previous back surgery. Patient denies any kidney issues but does have comorbidities including cardiac and pulmonary problems. Her Miguel is [id number]. Its been reviewed and appropriate. CC: Jaida Reynolds APRN [facility] Disclaimer: The information contained in this section may have been updated after the patient was seen, as this information can be updated by other users. Medical History Abnormal PFT COPD (chronic obstructive pulmonary disease) Dyspnea on exertion Encounter for screening for malignant neoplasm of lung in current smoker with 30 pack year history or greater History of COPD History of sleep apnea PAD (peripheral artery disease) Pre-op evaluation Smoking greater than 30 pack years Tobacco abuse counseling Tobacco abuse disorder Surgical History H/O thyroidectomy History of appendectomy History of total hip replacement History of total hysterectomy Family History Other Asthma Hypertension Kidney disease Thyroid disorder Social History Smoking Status: Current every day smoker tobacco type: cigarettes packs per day: 1 alcohol intake: never substance use type: denies use current occupational status: disabled Travel in the last 8 weeks: None household members: spouse and children housing: house caffeine: Yes Review of Systems Review of Systems Review of systems:: pertinent systems reviewed and negative unless documented below Review of systems (narrative): Review of Systems: General: No recent weight changes, no fever, no sleep disturbances Respiratory: No cough, no shortness of air, no recurring pulmonary infections Cardiovascular/peripheral vascular: No chest pain, no palpitations, no edema, no shortness of breath Gastrointestinal: No new onset incontinence, normal bowel movements reported Genitourinary: No new onset incontinence Musculoskeletal: Low back pain, bilateral leg pain Psychiatri
[2023-01-14 13:44] VITALS: BP 164/83; PULSE 62; RESP 18; O2SAT 95; BMI 41.3
== END | disposition home or self-care (01) ==
PROVIDERS: PCP Family Medicine; Visit Provider Nurse Practitioner Family
DX: M51.16 Intervertebral disc disorders with radiculopathy, lumbar region; M54.50 Low back pain, unspecified; M48.062 Spinal stenosis, lumbar region with neurogenic claudication; M48.07 Spinal stenosis, lumbosacral region; G89.4 Chronic pain syndrome; M25.561 Pain in right knee; M25.562 Pain in left knee
CPT/HCPCS: 99202; G0463

== ENCOUNTER → 2023-02-18 13:05 | Outpatient (POV) | payer MEDICARE, MEDICAID, SELFPAY ==
--- NOTE | 2023-02-18 13:45 | EXP.PAIN.SOA ---
[facility] Pain Management SOAP Note Subjective:: Patient is a pleasant 52-year-old female who presents today for medication refill and follow-up. We are currently treating the patient for degenerative disc disease of lumbar spine with lumbar radiculopathy symptoms, low back pain. Today she rates her pain a 4 out of 10. Patient denies any new trauma or injury. Patient denies any change location or type of pain she experiences. She states she continues to have worsening low back pain that radiates into her bilateral lower extremities. Patient does describe this is an aching, throbbing sensation that is worse with increased activity. Patient does state that she frequently has to take multiple breaks due to the worsening pain and that even doing activities like doing the dishes she has to bend over the sink. At our last visit we did discuss that she may be a beneficial candidate for a minimally invasive lumbar decompression and were recommending a lumbar epidural with epidurogram however she wanted to wait. Patient does state that she still is possibly interested in this option however previous epidurals did not do well and give additional relief. Patient is currently managed with Percocet 10 mg 3 times a day from an outside provider and meloxicam 15 mg daily from our office. Patient denies any side effects from this medication. She is requesting whether or not if we can take over the pain medication prescription and at our last visit we did discuss this and I explained at we do not prescribe scheduled medications for new patients. Her Miguel is [id number]. Its been reviewed and appropriate. Review of Systems: General: No recent weight changes, no fever, no sleep disturbances Respiratory: No cough, no shortness of air, no recurring pulmonary infections Cardiovascular/peripheral vascular: No chest pain, no palpitations, no edema, no shortness of breath Gastrointestinal: No new onset incontinence, normal bowel movements reported Genitourinary: No new onset incontinence Musculoskeletal: Low back pain, bilateral leg pain Psychiatric: [Normal mood/affect] Neurological: [Denies weakness in extremities], [denies balance issues] Objective:: Physical Exam: General: Alert and oriented x3, no acute distress, pleasant and cooperative Lungs: Respirations even and unlabored, symmetrical chest expansion Eyes: PERRL Musculoskeletal: Flexion and extension of lumbar [spine] somewhat guarded secondary to pain, [antalgic gait noted] Neurological: Speech clear, no gross sensory deficit Assessment:: Degenerative disc disease of lumbar spine with lumbar radiculopathy symptoms, low back pain Plan:: Patient continues to experience significant pain in her low back and legs with limited range of motion. I have reviewed over again with her regarding the minimally invasive lumbar decompression that she may be a beneficial candidate for in the future. Risk and benefits of the lumbar epidural with epidurogram have been explained to the patient and at this time she states she would like to think on it and let is now at our next visit. I will send in a 3-month supply of her meloxicam 15 mg daily. Patient will return to clinic in 1 month for reevaluation of symptoms and plan of care. Patient has been instructed to contact the clinic with any concerns before the next appointment. Dr. Aponte has reviewed this note and agrees with this plan of care. This note was dictated using voice recognition software and make contain errors or omissions. [facility] Disclaimer: The information contained in this section may have been updated after the patient was seen, as this information can be updated by other users. Medical History Abnormal PFT COPD (chronic obstructive pulmonary disease) Dyspnea on exertion Encounter for screening for malignant neoplasm of lung in current smoker with 30 pack year history or greater History of COPD History of sleep a
[2023-02-18 15:51] VITALS: BP 146/64; PULSE 72; RESP 18; O2SAT 94; BMI 41.6
== END | disposition home or self-care (01) ==
PROVIDERS: PCP Family Medicine; Visit Provider Nurse Practitioner Family
DX: M51.16 Intervertebral disc disorders with radiculopathy, lumbar region (principal)
CPT/HCPCS: 99212; G0463

== ENCOUNTER 2023-05-27 10:26 | Outpatient (CLI) | payer MEDICARE, MEDICAID, SELFPAY ==
[2023-05-27 12:32] LABS: Free T4 (Free Thyroxine) 1.65 ng/dl (0.78-2.19)
[2023-05-27 12:42] LABS: Thyroid Stimulating Hormone 4.36 uIU/mL (0.465-4.68)
== END 2023-05-27 23:59 ==
LOC: LAB 10:28
PROVIDERS: PCP Family Medicine; Visit Provider Nurse Practitioner
DX: C73 Malignant neoplasm of thyroid gland (principal)
CPT/HCPCS: 36415; 84439; 84443

== ENCOUNTER 2023-06-04 09:25 | Outpatient (CLI) | payer MEDICARE, MEDICAID, SELFPAY ==
--- NOTE | 2023-06-04 09:34 | MR_ITS ---
FINAL REPORT TECHNIQUE: Multiplanar MR without contrast CLINICAL HISTORY: midline posterior thoracic pain. nki. COMPARISON: None FINDINGS: The vertebral heights are normal. Marrow signal pattern is unremarkable. Alignment is normal. Thoracic spinal cord shows a normal MR appearance. There are minimal annular bulges present scattered in the mid and lower thoracic spine. There is no canal stenosis present. IMPRESSION: Minimal annular bulges scattered in the mid and lower thoracic spine. No canal stenosis is present. Reviewed, Interpreted and Dictated by Pranav Campbell MD Transcribed by Susan Vieira Authenticated and [facility]
== END 2023-06-04 23:59 ==
LOC: RAD 09:25
PROVIDERS: PCP Family Medicine; Visit Provider Family Medicine
DX: M54.6 Pain in thoracic spine (principal)
CPT/HCPCS: 72146

== ENCOUNTER 2024-02-03 20:34 | Outpatient (CLI) | payer MEDICARE, MEDICAID, SELFPAY | END 2024-02-03 23:59 | disposition home or self-care (01) | LOC: LAB.DROPOF 20:35 | PROVIDERS: PCP Obstetrics & Gynecology; Visit Provider Obstetrics & Gynecology | DX: Z02.9 Encounter for administrative examinations, unspecified (principal) ==

== ENCOUNTER 2024-05-16 13:06 | Outpatient (CLI) | payer MEDICARE, MEDICAID, SELFPAY ==
[2024-05-16 13:29] LABS: Basophils # 0.1 K/mm3 (0-0.2); Basophils % 0.8 % (0.1-2.0); Eosinophils # 0.2 K/mm3 (0.0-0.4); Eosinophils % 2.9 % (0.1-12.0); Hematocrit 49.3 % (37.0-47.0); Hemoglobin 15.3 g/dL (12.2-16.2); Lymphocytes # 2.2 K/mm3 (0.7-4.5); Lymphocytes % 28.1 % (10-50); Mean Corpuscular Hemoglobin 30.8 pg (27.0-31.2); Mean Corpuscular Volume 99.2 fl (81-99); Mean Platelet Volume 8.9 fl (7.4-10.4); Monocytes # 0.6 K/mm3 (0.1-1.0); Monocytes % 7.9 % (1.7-9.3); Neutrophils # 4.8 K/mm3 (1.8-7.8); Neutrophils % 59.8 % (37.0-80.0); Platelet Count 262 K/mm3 (142-424); Red Blood Count 4.97 M/mm3 (4.20-5.40); Red Cell Distribution Width 13.2 % (11.5-17.5)
[2024-05-16 14:07] LABS: Alanine Aminotransferase 12 U/L (12-78); Albumin Level 3.7 g/dl (3.5-5.0); Albumin/Globulin Ratio 1.4 (1.1-1.8); Alkaline Phosphatase 64 U/L (38-126); Aspartate Amino Transferase 22 U/L (14-36); Bilirubin,Total 0.3 mg/dl (0.2-1.3); Blood Urea Nitrogen 12 mg/dl (7-17); Calcium 8.7 mg/dl (8.4-10.2); Carbon Dioxide 37 mmol/L (22.0-30.0); Chloride 103 mmol/L (98-107); Chol/HDL Ratio 4.5 (1-3.5); Cholesterol 159 mg/dl (140-200); Estimated Glomerular Filt Rate 105 ml/min (>60); GFR (African American) 127 ML/MIN (>60); Globulin 2.7 g/dL (1.3-3.2); Glucose 99 mg/dl (74-100); HDL Cholesterol 35 mg/dl (40-60); Sodium 141 mmol/L (136-145); Total Protein,Serum 6.4 g/dl (6.3-8.2); Triglycerides 186 mg/dl (30-150); VLDL Cholesterol 37 mg/dL (0-40)
[2024-05-16 14:18] LABS: Direct LDL Cholesterol 88.93 mg/dL (100-129)
[2024-05-16 14:24] LABS: Free T4 (Free Thyroxine) 1.53 ng/dl (0.78-2.19)
[2024-05-16 14:37] LABS: Thyroid Stimulating Hormone 1.32 uIU/mL (0.465-4.68)
[2024-05-16 15:13] LABS: Hemoglobin A1C 5.2 % (4.0-6.0)
== END 2024-05-16 23:59 | disposition home or self-care (01) ==
PROVIDERS: Obstetrics & Gynecology; PCP Family Medicine; Visit Provider Nurse Practitioner
DX: Z68.41 Body mass index [BMI] 40.0-44.9, adult (principal); E66.01 Morbid (severe) obesity due to excess calories; R53.83 Other fatigue; Z00.00 Encounter for general adult medical examination without abnormal findings; Z72.0 Tobacco use; Z86.2 Personal history of diseases of the blood and blood-forming organs and certain disorders involving the immune mechanism; Z83.3 Family history of diabetes mellitus; E03.9 Hypothyroidism, unspecified
CPT/HCPCS: 36415; 80053; 80061; 83036; 84439; 84443; 85025

== ENCOUNTER 2024-05-17 10:47 | Outpatient (CLI) | payer MEDICARE, MEDICAID, SELFPAY ==
[2024-05-17 17:01] LABS: 25-OH Vitamin D, Total < 12.8 ng/mL (30-100)
[2024-05-17 17:44] LABS: Vitamin B12 333 pg/mL (239-931)
[2024-05-17 18:02] LABS: Folate 6.22 ng/mL
== END 2024-05-17 23:59 | disposition home or self-care (01) ==
LOC: LAB.DROPOF 05-23 10:48
PROVIDERS: PCP Family Medicine; Visit Provider Obstetrics & Gynecology
DX: R53.83 Other fatigue (principal)
CPT/HCPCS: 82306; 82607; 82746

== ENCOUNTER 2024-12-24 12:32 | Emergency (ER) | payer MEDICARE, MEDICAID, SELFPAY ==
--- OUTSIDE RECORDS SUMMARY | 2024-12-24 12:56 | XMS_ITS | Clinical Summary ---
Author Organization [facility] Address [address] [id number] Care Team Providers Care Animal Health Technician Name Role Phone Santana Schneider MD Primary Care Provider [phone] Family History Medical History Relation Name Comments Arthritis Other 1 Hypertension Other 2 Other cancer Other 3 Relation Name Status Comments Other 1 Other 2 Other 3 Social History Tobacco Use Types Packs/Day Years Used Date Smoking Tobacco: Never Assessed Alcohol Use Standard Drinks/Week Comments No 0 (1 standard drink = 0.6 oz pure alcohol) Alcoholic Drinks/day: Never Drank Alcohol Comments Unknown Sex and Gender Information Value Date Recorded Sex Assigned at Not on file Legal Sex Female 8:45 PM EDT Gender Identity Not on file Sexual Orientation Not on file Last Filed Vital Signs Vital Sign Reading Time Taken Comments Blood Pressure 142/89 11/06/2022 1:22 PM EDT Pulse - - Temperature - - Respiratory Rate - - Oxygen Saturation - - Inhaled Oxygen Concentration - - Weight 133 kg (293 lb) 11/06/2022 1:22 PM EDT Height 175.3 cm (5' 9 ) 11/06/2022 1:22 PM EDT Body Mass Index 43.27 11/06/2022 1:22 PM EDT Plan of Treatment Health Maintenance Due Date Last Done Comments [facility]-Depression Screening 1970 [facility]-Infant/Child/Adol SDOH Screenings 1970 [facility]- SDOH Screenings 1988 [facility]-Adult SDOH Screenings 1988 [facility]-Pap Smear 08/16/1991 [facility]-Cervical Cancer Screening 2000 [facility]-HPV/Cotest 2000 [facility]-Hepatitis B Vaccines (2 of 3 - 19+ 3-dose series) 02/22/2013 01/25/2013 CT Colonography 08/16/2015 Colonoscopy 08/16/2015 FIT-DNA 08/16/2015 FIT 08/16/2015 FOBT 08/16/2015 Sigmoidoscopy 08/16/2015 [facility]-Colorectal Cancer Screening 08/16/2015 [facility]-Pneumococcal Vaccine: 50 + Years (1 of 1 - PCV) 2020 [facility]-Zoster Vaccines (1 of 2) 2020 [facility]-DTaP,Tdap,and Td Vaccine s (2 - Td or Tdap) 12/18/2021 12/19/2011 [id number] Vaccine (2 - season) 2024 12/18/2020 [facility]-Influenza Vaccine (#1) 2025 [facility]-Hepatitis A Vaccines Aged Out 01/25/2013 No longer eligible based on patient's age to complete this topic [facility]-Breast Cancer Screening Discontinued 04/05, 01/07/2012 HPV Vaccines Aged Out No longer eligi ble based on patient's age to complete this topic [facility]-HIB Vaccines Aged Out No longer e ligible based on patient's age to complete this topic [facility]-IPV Vaccines Aged Out No longer e ligible based on patient's age to complete this topic [facility]-Rotavirus Vaccines Aged Out No lo nger eligible based on patient's age to complete this topic Insurance [place] Member Subscriber Plan / Payer (Ef fective 2017-Present) Name:Christiane Spain Member ID:[id number] Relation to Subscriber:Self Name:Christiane Spain Subscriber ID:[id number] Payer ID:MEDICARE Group ID:Not on file Type:Medicare Address: [address] [phone] Care Teams Animal Health Technician Relationship Specialty Start Date End Date Santana Schneider MD [address] [place] [address] PCP - General 09/14/20
--- OUTSIDE RECORDS SUMMARY | 2024-12-24 12:56 | XMS_ITS | Clinical Summary ---
Author Organization [facility] Address [address] [place] [address] Phone Care Team Providers Care Greenhouse Technician Name Role Phone Santana Schneider MD Primary Care Provider [phone] Allergies Active Allergy Reactions Criticality Noted Date Comments Metronidazole 08/28/2016 Nitrofurantoin Monohyd/M-Cryst Anaphylaxis High 07/23/2014 Acetaminophen-Codeine Nausea And Vomiting 07/23 Pt. States that she just doesn't like the taste of the med, it gives her nausea. Pt. Has taken Percocet with no reaction. Medications lisinopril (PRINIVIL;ZESTRI L) 5 mg Oral Tablet Take by mouth daily. Active levothyroxine (SYNTHROID) 175 mcg Oral Tablet Take by mouth daily. Active diazepam (VALIUM) 10 mg Oral Tablet Take 10 mg by mouth 3 times daily. Active gabapentin (NEURONTIN) 800 mg Oral Tablet Take 800 mg by mouth 3 times daily. Active linaclotide (LINZESS) 145 mcg Oral Capsule Take 145 mcg by mouth daily. Active fUROsemide (LASIX) 40 mg Oral Tablet Take by mouth daily as needed. Active meloxicam (MOBIC) 15 mg Oral Tablet Take 15 mg by mouth daily as needed for Pain. Active oxyCODONE 10 mg Oral Tablet Take 10 mg by mouth every 6 hours as needed. Active tiZANidine (ZANAFLEX) 2 mg Oral Tablet Take 2 Tabs by mouth every 8 hours as needed for Other (muscle relaxant). 60 Tab 10/26/2018 Active bisoprolol (ZEBETA) 5 mg Oral Tablet Take 1 Tablet by mouth daily. Active Active Problems Problem Noted Date Diagnosed Date Osteoarthritis of hip 06/21/2018 Degeneration of lumbar intervertebral disc 11/19 Left lower quadrant pain 12/02/2016 Coronary arteriosclerosis 09/12/2016 Hypertensive disorder 09/11/2016 Hypothyroidism 09/11/2016 Asthma 09/11/2016 Anxiety 09/11/2016 S/P repair of ventral hernia 04/25/2015 Wound infection after surgery 04/25/2015 Incisional hernia, without obstruction or gangre ne 03/01/2015 Surgical History Surgery Date Site/Laterality Comments APPENDECTOMY 1988 TUBAL LIGATION 1992 THYROID SURGERY removed HYSTERECTOMY DILATION AND CURETTAGE OF UTERUS x 2 SALPINGO-OOPHORECTOMY VENTRAL HERNIA REPAIR 04/05/2015 N/A OPEN VENTRAL HERNIA REPAIR WITH MESH BILATERAL COMPARTMENT RELEASE; Surgeon: Tequila Zepeda MD; Location: [facility] MAIN OR; Service: General Medical devices from this surgery are in the Medical Devices section. HIP ARTHROPLASTY 10/26/2018 Right RIGHT TOTAL HIP REPLACEMENT; Surgeon: Anjel Mccrary MD; Location: [facility] MAIN OR; Service: Orthopedics Medical devices from this surgery are in the Medical Devices section. Medical History Medical History Date Comments Hypertension Constipation Arthritis knees Headache Thyroid disease Cancer (HCC) thyroid tx with radioactive pills Social History Tobacco Use Types Packs/Day Years Used Date Smoking Tobacco: Every Day Cigarettes 1 29.7 Started: 04/07/1995 Smokeless Tobacco: Never Tobacco Cessation:Ready to Q uit: No Alcohol Use Standard Drinks/Week Comments No 0 (1 standard drink = 0.6 oz pur e alcohol) Comments No Sex and Gender Information Value Date Recorded Sex Assigned at Not on file Legal Sex Female 6:56 PM EDT Gender Identity Not on file Sexual Orientation Not on file Obstetrics History Last Filed Vital Signs Vital Sign Reading Time Taken Comments Blood Pressure 157/97 11/10/2023 10:25 AM EDT Pulse 65 11/10/2023 10:25 AM EDT Temperature 36.3 C (97.4 F) 11/10/2023 10:25 AM EDT Respiratory Rate 18 10/28/2018 8:07 AM EDT Oxygen Saturation 99% 10/28/2018 8:07 AM EDT Inhaled Oxygen Concentration - - Weight 125.9 kg (277 lb 9.6 oz) 024 10:25 AM EDT Height 175.3 cm (5' 9 ) 11/10/2023 10:2 5 AM EDT Body Mass Index 40.99 11/10/2023 10:25 AM EDT Plan of Treatment Health Maintenance Due Date Last Done Comments Wellness Exam Medicare 1973 Pneumococcal Vaccine 50+ (1 of 2 - PCV) 1989 Cervical Cancer Screening 08/16/1991 Pap Smear 08/16/1991 HPV/Pap Cotest 2000 Hepatitis B Vaccine (2 of 3 - 19+ 3-dose series) 02/22/2013 01/25/2013 Breast Cancer Screening 05/02/2015 05/02/20 13, 01/07/2012, 12/09/2010, Additional history exists Cologuard 08/16/2015 Colon Cancer Screening 08/16/2015 Colonoscopy 08/16/2015 FIT 08/16/2015 Sigmoidoscopy 08/16/2015 Virtual Colonography 08/16/2015 Low Dose Lung Cancer Screening 2020 Zoster (1 of 2) 2020 DTaP/TDaP/Td (2 - Td or Tdap) 12/18/2021 12/19/2011 COVID-19 Vaccine (2 - season) 2024 03/18/2023 Influenza Vaccine (#1) 2025 Meningococcal B Vaccine Aged Out No l onger eligible based on patient's age to complete this topic Medical Devices Implanted Type Area Economic Development Manager Device Identifier Shelf Expiration Date Model / Serial / Lot Mesh Soft 15cm X 15cm - [id number] Implanted:Qty: 1 on 04/05/2015 by Yousif Zepeda MD at [facility] N/A: Abdomen CR BARD:DAVOL 07/02/2019 [id number] / / [id number] Trident Ii Tritanium Clusterhole 52e - [id number] Implanted:Qty: 1 on 10/26/2018 by Anjel Mccrary MD at [facility] Right: Hip AGNES:ORTHOPED ICS 07/29/2023 [id number] / / [id number] Screw Trident Ii Hex Low Profile 6.5mm X 25mm - [id number] Implanted:Qty: 2 on 10/26/2018 by Anjel Mccrary MD at [facility] Right: Hip AGNES:ORTHOPED [facility] 07/22/2023 [id number] / / [id number] Insert Trident 3 X 0 Degree 36mm - [id number] Implanted:Qty: 1 on 10/26/2018 by Anjel Mccrary MD at [facility] Right: Hip AGNES:ORTHOPED [facility] 09/05/2023 [id number] / / [id number] Size 5 Accolade Ii 127 Deg - [id number] Implanted:Qty: 1 on 10/26/2018 by Anjel Mccrary MD at [facility] Right: Hip AGNES:ORTHOPED [facility] 08/31/2023 [id number] / / [id number] Head Fem +0mm Ofst Tpr 36mm Hip Blx D V40 Strl - [id number] Implanted:Qty: 1 on 10/26/2018 by Anjel Mccrary MD at [facility] Right: Hip AGNES:ORTHOPED [facility] 08/31/2023 [id number] / / [id number] Procedures Procedure Name Priority Date/Time Associated Diagnosis Comments MM MOBILE MAMMO DIGITAL SCREEN W CAD MARIANELA Routine 05/02/2013 9:00 AM EST Other screening mammogram from Last 3 Months or Most Recently Relevant to Health Maintenance Results * MM MOBILE MAMMO DIGITAL SCREEN W CAD MARIANELA (05/02/2013 9:00 AM EST) Anatomical Region Laterality Modality Breast Mammography 05/03/2013 1:56 PM EST Impressions 05/03/2013 4:36 PM EST : Negative (TZD-Eodppuct-3) ~ RECOMMENDATION: Routine screening mammogram in 1 year. ~ * The patient with a palpable abnormality, unexplained by breast imaging, should be managed on clinical basis by the attending physician. * Breast imaging has a false negative rate of 15%. * The patient was notified by mail of the results of this examination. *The patient's information was entered into a reminder system with a target due date for the next mammogram. The mammogram was reviewed by a Radiologist and CAD. Narrative 05/03/2013 4:36 PM EST Procedure:MM MOBILE MAMMO DIGITAL SCREEN W CAD MARIANELA ~ Reason for exam: screening (asymptomatic). ~ MM MOBILE MAMMO DIGITAL SCREEN W CAD MARIANELA Bilateral CC and MLO view(s) were taken. There are scattered fibroglandular densities. No significant change Compared to prior studies the most recent being 01-07-12 ~ Procedure Note Mindi Vivar MD - 05/03/2013 Procedure:MM MOBILE MAMMO DIGITAL SCREEN W CAD MARIANELA ~ Reason for exam: screening (asymptomatic). ~ MM MOBILE MAMMO DIGITAL SCREEN W CAD MARIANELA Bilateral CC and MLO view(s) were taken. There are scattered fibroglandular densities. No significant change Compared to prior studies the most recent being 01-07-12 ~ IMPRESSION: Negative ([id number]) ~ RECOMMENDATION: Routine screening mammogram in 1 year. ~ * The patient with a palpable abnormality, unexplained by breast imaging, should be managed on clinical basis by the attending physician. * Breast imaging has a false negative rate of 15%. * The patient was notified by mail of the results of this examination. *The patient's information was entered into a reminder system with atarget due date for the next mammogram. The mammogram was reviewed by a Radiologist and CAD. Result [facility] MAMMOGRAPHY ORDERABLES F inal Result from Last 3 Months or Most Recently Relevant to Health Maintenance Insurance [place] [address] MED[place] [address] MED[place] MEDICA[place] Advance Directives For more information, please contact: [phone] * Full Code (Latest Code Status on File) Date Activated Date Inactivated Comments 10/26/2018 2:25 PM 10/28/2018 4:09 PM * Full Code Date Activated Date Inactivated Comments 04/05/2015 10:25 PM 04/08/2015 7:16 PM Care Teams Greenhouse Technician Relationship Specialty Start Date End Date Santana Schneider MD [address] [place] [address] PCP - General Family Medicine 10/6/17
--- OUTSIDE RECORDS SUMMARY | 2024-12-24 12:56 | XMS_ITS | Clinical Summary ---
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 -JAR rm 6 PREG TST URN negative beta HC G, urine, semiquantitative Plan of Care Type Date Detail Pending order Preg Test (Outsi de Lab) Pending order Pelvic Ultrasoun d Procedures Code Procedure Name Date Entry Date CPT-G8447 Encounter documented using a certified EH R CPT-G8447 Encounter documented using a certified EH R CPT-70539 Endometrial Biopsy 4 CPT-23683 Preg Test (Outside Lab) 2010 PU Pelvic Ultrasound Vital Signs Date Name Value Unit Description BMI (Body Mass Index) 38.61 kg/m2 Bod y Mass Index (Ratio) BP Diastolic 93 mm[Hg] blood pressu re, diastolic BP Systolic 154 mm[Hg] blood pressur e, systolic Weight Measured 253 [lb_av] weight E& M Weight Measured 253 [lb_av] weight E& M Weight Measured 115.00 kg weight in kilograms E&M Heart Rate 67 /min pulse rate Height 68 [in_us] height E&M Height 172.72 cm height in cent imeters E&M Immunizations No information available. Advance Directives No information available.
--- NOTE | 2024-12-24 12:59 | XR_ITS ---
PROCEDURE INFORMATION: Exam: XR Chest Exam date and time: 12/24/2024 1:53 PM Age: 54 years old Clinical indication: Shortness of breath; Additional info: SOA TECHNIQUE: Imaging protocol: Radiologic exam of the chest. Views: 1 view. COMPARISON: CT LUNG SCREENING 09/12/2021 2:37 PM FINDINGS: Lungs: Opacities in both bases may represent atelectasis or pneumonia. Pleural spaces: Unremarkable. No pleural effusion. No pneumothorax. Heart/Mediastinum: Cardiomegaly Bones/joints: Unremarkable. IMPRESSION: Opacities in both bases may represent atelectasis or pneumonia.
--- NOTE | 2024-12-24 12:59 | CT_ITS ---
PROCEDURE INFORMATION: Exam: CT Abdomen And Pelvis With Contrast Exam date and time: 12/24/2024 2:13 PM Age: 54 years old Clinical indication: Abdominal pain; Additional info: Midepigastric abdominal pain, nausea TECHNIQUE: Imaging protocol: Computed tomography of the abdomen and pelvis with contrast. 3D rendering (Not supervised by radiologist): MIP and/or 3D reconstructed images were created by the technologist. Radiation optimization: All CT scans at this facility use at least one of these dose optimization techniques: automated exposure control; mA and/or kV adjustment per patient size (includes targeted exams where dose is matched to clinical indication); or iterative reconstruction. Contrast material: ISOVUE; Contrast volume: 80 ml; Contrast route: IV; COMPARISON: CT ABDOMEN PELVIS W CON 02/17/2021 7:40 PM FINDINGS: Liver: Normal. No mass. Gallbladder and biliary ducts: Sludge balls or gallstones in the gallbladder Pancreas: Normal. No ductal dilation. Spleen: Normal. No splenomegaly. Adrenal glands: Normal. No mass. Kidneys and ureters: Nonobstructing right renal calculus.. No ureteral calculus 18 mm simple cyst left kidney . No follow-up imaging recommended . Stomach and bowel: Unremarkable. No obstruction. No mucosal thickening. Appendix: No evidence of appendicitis. Intraperitoneal space: Unremarkable. No free air. No significant fluid collection. Vasculature: Unremarkable. No abdominal aortic aneurysm. Lymph nodes: Unremarkable. No enlarged lymph nodes. Urinary bladder: Unremarkable as visualized. Reproductive: Surgical resection of the uterus Bones/joints: Right total hip replacement Soft tissues: Increased soft tissue density in the midline anterior abdominal wall contains sutures may be due to prior surgery. IMPRESSION: Increased soft tissue density in the midline anterior abdominal wall contains sutures may be due to prior surgery. Sludge balls or gallstones in the gallbladder COMMENTS: Consistent with the [employer] [employer]'s Incidental Findings Committee white paper (J Am Katelyn Radiol 2018): Any incidental renal lesion less than 1 cm or classified as too small to characterize, or any incidental cystic renal lesion characterized as simple-appearing, is likely benign. No follow-up imaging is recommended for these lesions per consensus recommendations based on imaging criteria.
--- NOTE | 2024-12-24 12:59 | CT_ITS ---
PROCEDURE INFORMATION: Exam: CTA Chest With Contrast Exam date and time: 12/24/2024 2:13 PM Age: 54 years old Clinical indication: Shortness of breath; Additional info: SOA and cp TECHNIQUE: Imaging protocol: Computed tomographic angiography of the chest with contrast. Exam focused on the arteries. 3D rendering (Not supervised by radiologist): MIP and/or 3D reconstructed images were created by the technologist. Radiation optimization: All CT scans at this facility use at least one of these dose optimization techniques: automated exposure control; mA and/or kV adjustment per patient size (includes targeted exams where dose is matched to clinical indication); or iterative reconstruction. Contrast material: ISOVUE; Contrast volume: 80 ml; Contrast route: INTRAVENOUS (IV); COMPARISON: CT LUNG SCREENING 09/12/2021 2:37 PM FINDINGS: Pulmonary arteries: No evidence of pulmonary embolus to the segmental level. Aorta: Unruptured aneurysm of the ascending aorta 4.3 cm. No dissection of the aorta. Lungs: Unremarkable. No consolidation. No masses. Pleural spaces: Unremarkable. No pneumothorax. No pleural effusion. Heart: Unremarkable. No cardiomegaly. No pericardial effusion. Coronary arteries: No coronary artery calcification is identified Lymph nodes: Unremarkable. No enlarged lymph nodes. Liver: Lobulated liver consistent with cirrhosis Kidneys: Nonobstructing left renal calculus Bones/joints: Unremarkable. No acute fracture. Soft tissues: Unremarkable. IMPRESSION: 1. No evidence of pulmonary embolus to the segmental level. 2. Unruptured aneurysm of the ascending aorta 4.3 cm. 3. No dissection of the aorta.
--- NOTE | 2024-12-24 13:01 | ED_ITS ---
<Statement entered by José Owens MD - 12/24/24 17:38> I was consulted by the SUHAS, and we discussed the complexity of the problems being addressed. I approve the treatment and management plan for this patient's care in the emergency department, thus performing a substantive portion of the medical decision making. José Owens MD Discharge Plan Disposition Patient Disposition: Home, Self-Care Condition: Good Prescriptions Prescriptions: No Action diazepam 10 mg tablet 10 mg PO TID simvastatin 20 mg tablet 20 mg PO DAILY Patient Comments: TAKE 1 TABLET BY MOUTH EVERY DAY omeprazole 20 mg capsule,delayed release(DR/EC) 20 mg PO DAILY Patient Comments: TAKE 1 CAPSULE BY MOUTH EVERY DAY levothyroxine 175 mcg tablet 175 mcg PO DAILY Qty: 90 4RF oxycodone-acetaminophen 10-325 mg tablet 1 tab PO Q6HP PRN (Reason: PAIN) furosemide 40 mg tablet 40 mg PO DAILY PRN (Reason: edema) Qty: 30 4RF albuterol sulfate 90 mcg/actuation HFA aerosol inhaler 2 inh INHALATION Q6H PRN (Reason: shortness of breath or wheezing) 90 Days Qty: 8.5 3RF lisinopril 10 mg tablet See Rx Instructions .ROUTE .COMPLEX Qty: 90 3RF Dose Instruction: TAKE 1 TABLET BY MOUTH EVERY DAY FOR BLOOD PRESSURE Rx Instructions: TAKE 1 TABLET BY MOUTH EVERY DAY FOR BLOOD PRESSURE bisoprolol fumarate 5 mg tablet See Rx Instructions .ROUTE .COMPLEX Qty: 90 4RF Dose Instruction: TAKE 1 TABLET BY MOUTH EVERY DAY Rx Instructions: TAKE 1 TABLET BY MOUTH EVERY DAY gabapentin 600 MG tablet 600 mg PO 0900,1200 Rx Instructions: take 1 tablet (600mg) each morning and at noon, take 2 tablets (1200mg) at bedtime meloxicam 15 mg tablet 15 mg PO DAILY Qty: 30 0RF Referrals Follow up/Referrals: Santana Schneider [Primary Care Provider, Medical] - See instructions Manny Edgar MD [Staff Physician, General Surgery] - See instructions Suman Calderon MD [Consulting Physician, Cardiovascular/Thoracic Surg] - See instructions Activity Restrictions/Add. Instructions Additional Instructions/Restrictions: Please return to the emergency department with any worsening signs or symptoms, such as worsening chest pain abdominal pain nausea vomiting, please take all your medications as prescribed, use your at home oxygen and CPAP machine as prescribed. Please follow-up with your family doctor the general surgeon as above as well as cardiothoracic surgeon as above. Please call their office first thing Thursday morning for an appointment. Clinical Impressions Clinical Impression: Thoracic ascending aortic aneurysm, Abdominal pain Cholelithiasis Qualifiers: Cholelithiasis location: gallbladder Cholecystitis presence: without cholecystitis Biliary obstruction: without biliary obstruction Qualified Code(s): K80.20 - Calculus of gallbladder without cholecystitis without obstruction Instructions Patient Instructions: DI for Acute Abdominal Pain, DI for Aortic Aneurysm, DI for Gallstones Print Language Print Language: Eritrean Discharge ED Provider: José Owens General Adult HPI <EMELINA Monsivais - Last Filed: 12/24/24 15:58> General Chief complaint: Abdominal Pain Stated complaint: abdomen pain,SOA Time Seen by Provider: 12/24/24 12:54 Mode of Arrival: Ambulatory Source of Information: Patient History of Present Illness HPI narrative: 54-year-old female presents the emergency department with midepigastric abdominal pain since , patient was apparently seen by her outpatient provider, prescribed Zofran, Keflex, and Bentyl, with little no relief of her symptomatology, patient denies any fever chills admits to productive cough, admits to shortness of air, been taking medication as prescribed, with little to no relief of her symptomatology, she admits to subjective fever and chills, denies any overt chest pain, but she is unsure , she states the pain is moving around , started initially in the abdomen, going up into her upper chest behind her shoulder blades at this time denies any trauma or injury per history, patient utilizes as needed nasal cannula as needed at home, has history of COPD, current everyday smoker, denies any vomiting, denies any diarrhea, does have chronic constipation, last bowel movement was yesterday, denies any melena hematochezia hematemesis or hemoptysis, patient denies any alcohol or drug use, other past medical history is consistent with iron deficiency anemia, hypothyroidism status post thyroidectomy, lumbar spinal stenosis, morbid obesity, degenerative disc disease, hyperlipidemia, hypertension, KATHARINA, chronic pain syndrome, peripheral artery disease, GERD. Initial triage vitals notable for SpO2 around 88%, will place patient on 2 L nasal cannula, no tachycardia, otherwise unremarkable vitals. Of note patient took oxycodone , and 10 mg today with little no relief or symptomatology as well as some Tylenol. Please note that above description of symptoms, in this electronic medical record under categorization of recalled from ER triage doctor by RN are reflective of an initial nursing assessment, however, is not reflective of my full history and physical exam that was personally taken and clarified. Consequentially, this preceding description of symptoms, which may include the patient's categorized chief complaint in the EMR, do not reflect my personal clinical impression, and the ultimate description of history of present illness and patient stated complaints should be deferred to this section of the note. Unless stated otherwise or congruent with this section of the note, additional signs, symptoms, or incongruence should be interpreted as inaccurate with my clinical impression. Onset (ago): day(s) Related Data Home Medications ?Medication ?Instructions ?Recorded ?Confirmed diazepam 10 mg tablet 10 mg PO TID Anxiety 8 06/02/24 oxycodone-acetaminophen 10 mg-325 1 tab PO Q6HP PRN PA IN 02/06/20 06/02/24 mg tablet gabapentin 600 mg tablet 600 mg PO 0900,1200 Pain 06/02/24 simvastatin 20 mg tablet 20 mg PO DAILY 06/03/2305/06 omeprazole 20 mg capsule,delayed 20 mg PO DAILY 06/02/24 release Previous Rx's ?Medication ?Instructions ?Recorded furosemide 40 mg tablet 40 mg PO DAILY PRN edema #30 tabs 11/27/22 albuterol sulfate 90 mcg/actuation 2 inh inhalation Q6 H PRN shortness 12/19/22 aerosol inhaler of breath or wheezing 90 day s #8.5 grams meloxicam 15 mg tablet 15 mg PO DAILY pain #30 tabs 02/18/23 levothyroxine 175 mcg tablet 175 mcg PO DAILY THYROID #90 tabs 06/02/24 bisoprolol fumarate 5 mg tablet See Rx Instructions .R oute 06/29/24 .COMPLEX #90 tabs lisinopril 10 mg tablet See Rx Instructions .Route 0 06/29/24 .COMPLEX #90 tabs Allergies Allergy/AdvReac Type Severity Reaction Status Date / Time nitrofurantoin (From Allergy Severe S-DIFF. Verified 06/02/24 14:21 MACROBID) BREATHING metronidazole Allergy Intermediate Verified 06/02/24 14:21 codeine (CODEINE) Allergy Unknown Verified 06/02/24 14:21 PFSH <EMELINA Monsivais - Last Filed: 12/24/24 15:58> REPLACED BY [facility] Disclaimer: The information contained in this section may have been updated after the patient was seen, as this information can be updated by other users. Medical History (Updated 12/24/24 @ 15:58 by EMELINA Monsivais) Hypothyroidism Fatigue COPD (chronic obstructive pulmonary disease) Abnormal PFT Encounter for screening for malignant neoplasm of lung in current smoker with 30 pack year history or greater Smoking greater than 30 pack years Dyspnea on exertion Tobacco abuse disorder Tobacco abuse counseling History of sleep apnea History of COPD PAD (peripheral artery disease) Pre-op evaluation Surgical History History of appendectomy History of total hysterectomy History of total hip replacement H/O thyroidectomy Family History Other Asthma Hypertension Kidney disease Thyroid disorder Social History Smoking Status: Current every day smoker tobacco type: cigarettes packs per day: 1 alcohol intake: never substance use type: denies use current occupational status: disabled Travel in the last 8 weeks?: None household members: spouse and children housing: house caffeine: Yes Have you lived/traveled outside US in past 30 days?: No Contact w/someone who lives/traveled outside US past 30 days?: No Exposure to someone with infectious disease in past 14 days?: No Do you have a fever (greater than 100.4 F or 38 C)?: No Have you tested positive for COVID-19?: No Exposed to someone with COVID-19 in past 14 days?: No Do you have a sore throat?: No Do you have a cough?: No Do you have any weakness?: No Do you have any diarrhea?: No Are you experiencing any unusual bleeding?: No Do you have any muscle aches/pain?: No Do you have any abdominal pain?: No Are you experiencing loss of taste or smell?: No Other Medical History Have you received the Flu Vaccine for this season: No Have you received the Pneumonia Vaccine: No <EMELINA Monsivais - Last Filed: 12/24/24 15:58> ROS Obtained: Yes All systems reviewed & no additional complaints except as documented Physical Exam <EMELINA Monsivais - Last Filed: 12/24/24 15:58> General General appearance: alert and in no apparent distress Head Head exam: atraumatic and normocephalic Eye Eye exam: Present PERRL and EOMI ENT ENT exam: Present mucous membranes moist Neck Neck exam: Present normal inspection Chest Chest inspection: Present normal inspection and symmetric chest wall rise; Absent tenderness Respiratory Respiratory exam: Present wheezes, prolonged expiratory phase and other (Mild to moderate wheezes noted throughout bilateral lung garcia, with minimal crackles heard throughout lung garcia); Absent normal lung sounds bilaterally or respiratory distress Cardiovascular Cardiovascular exam: Present regular rate and normal rhythm Abdominal Exam Abdominal exam: Present soft and tenderness; Absent guarding, rebound, rigidity or Artis's sign Abdominal tenderness: Present epigastrium, diffuse and mild Extremities Exam Extremities exam: Present normal inspection Back Exam Back exam: Present normal inspection, tenderness, CVA tenderness (L) and paraspinal tenderness; Absent CVA tenderness (R) Comment: Paraspinal tenderness to the thoracic spine Neurological Exam Neurological exam: Present alert and oriented X3 Psychiatric Psychiatric exam: Present normal affect Skin Skin exam: Present warm and dry Medical Decision Making <EMELINA Monsivais - Last Filed: 12/24/24 15:58> Medical Records Medical records reviewed: Yes I reviewed the patient's medical records. Screening: Per USPSTF and CDC recommendations, given the prevalence of disease in our region, it is our hospital?s policy to screen for HIV and viral Hepatitis for all patients aged 18 and over and those with ongoing risk factors. Miguel Inquiry Pt receiving controlled substance: No Miguel was queried for this patient: No Vital Signs: 12/24/24 13:03 12/24/24 13:03 12/24/24 13:31 Temperature 97.9 F 97.9 F Temperature Source Oral Pulse Rate 78 77 Pulse Rate [Right] 78 Respiratory Rate 22 22 Blood Pressure 158/63 H 109/55 L Blood Pressure [Left Arm] 158/63 H Blood Pressure Mean [Left Arm] 94 02 Sat by Pulse Oximetry 86 L 86 L 93 L Oxygen Delivery Method Room Air Room Air Nasal Cannula Oxygen Flow Rate (LPM) 2 12/24/24 14:31 12/24/24 15:01 Temperature Temperature Source Pulse Rate Pulse Rate [Right] Respiratory Rate 16 18 Blood Pressure 161/62 H 136/59 L Blood Pressure [Left Arm] Blood Pressure Mean [Left Arm] 02 Sat by Pulse Oximetry Oxygen Delivery Method Oxygen Flow Rate (LPM) Lab Data Lab results reviewed: Yes I reviewed the patient's lab results. Lab Results 12/24/24 13:09: SARS-CoV-2 (PCR) Not detected, Influenza A Untype (PCR) Not detected, Influenza Type B (PCR) Not detected 12/24/24 13:18: WBC 9.9, RBC 5.59 H, Hgb 16.3 H, Hct 55.0 H, MCV 98.4, MCH 29.2, MCHC 29.6 L, RDW 13.6, Plt Count 237, MPV 9.0, Neut % (Auto) 72.6, Lymph % (Auto) 19.0, Trimble % (Auto) 6.3, Eos % (Auto) 0.4, Baso % (Auto) 0.6, Neut # (Auto) 7.2, Lymph # (Auto) 1.9, Trimble # (Auto) 0.6, Eos # (Auto) 0.0, Baso # (Auto) 0.1, PT 10.9, INR 0.98, Sodium 142, Potassium 4.2, Chloride 100, Carbon Dioxide 35 H, Anion Gap 11.2, BUN 13, Creatinine 0.60, Estimated Creat Clear 209, Estimated GFR 104, Est GFR ( Amer) 126, Glucose 130 H, Lactate 1.7, Calcium 8.6, Magnesium 1.7, Total Bilirubin 0.4, AST 36, ALT 12, Alkaline Phosphatase 65, Troponin I 0.02, NT-Pro-B Natriuret Pep 1020 H, Total Protein 7.8, Albumin 4.2, Globulin 3.6 H, Albumin/Globulin Ratio 1.2, Lipase 40 12/24/24 14:09: Urine Color Yellow, Urine Appearance Clear, Urine pH 6.5, Ur Specific Nixa 1.010, Urine Protein Negative, Urine Glucose (UA) Negative, Urine Ketones Negative, Urine Blood Negative, Urine Nitrate Negative, Urine Bilirubin Negative, Urine Urobilinogen 0.2, Ur Leukocyte Esterase Trace, Urine RBC None, Urine WBC 3-5, Ur Squamous Epith Cells 10-20, Urine Bacteria 1+ 12/24/24 15:22: VBG pH 7.24 L, VBG pCO2 88.7 H, VBG pO2 43.5 H, VBG HCO3 37.1 H, VBG Total CO2 39.8 H, VBG O2 Saturation 80.5 H, VBG Base Excess 9.7 H, VBG Lactic Acid 1.1 12/24/24 13:18 12/24/24 13:18 Orders (Tests/Meds): ED MEDICATIONS Generic Name Dose Route Start Last Admin Trade Name Freq PRN Reason Stop Dose Admin Sodium Chloride 10 ml 12/24/24 14:12 12/24/24 14:13 Sodium Chloride 0.9% 10ml Syr (Rad Only) IV 01/23/25 14:11 10 ml NEEDED PRN Administration Maintain IV Site Discontinued Medications Generic Name Dose Route Start Last Admin Trade Name Freq PRN Reason Stop Dose Admin Hydromorphone HCl 0.5 mg 12/24/24 13:08 12/24/24 13:34 Hydromorphone 2mg/Ml Syringe IV 12/24/24 13:09 0.5 mg ONCE ONE Administration Iopamidol 80 ml 12/24/24 14:12 12/24/24 14:13 Iopamidol-370 (76%);100ml Bottle IV 12/24/24 14:13 80 ml ONCE ONE Administration Ondansetron HCl 4 mg 12/24/24 13:00 12/24/24 13:34 Ondansetron 4mg/2ml Vial IV 12/24/24 13:01 4 mg ONCE ONE Administration Sodium Chloride 50 ml 12/24/24 14:12 12/24/24 14:12 0.9 % Sodium Chloride 50 Ml Vial IV 12/24/24 14:13 50 ml ONCE ONE Administration ORDERS Category Date Time Status CT abdomen pelvis w con Stat Cat Scan 12/24/24 12:[address] angio chest PE protocol Stat Cat Scan 12/24/24 12:59 Completed POCUS Point of Care (ER Only) Stat Exams 12/24/24 15:04 Completed XR chest portable Stat Exams 12/24/24 12:59 Completed Complete Blood Count Auto Diff Stat Lab 12/24/24 13:18 Completed Comprehensive Metabolic Panel Stat Lab 12/24/24 13:18 Completed Lactic Acid Stat Lab 12/24/24 13:18 Completed Lipase Stat Lab 12/24/24 13:18 Completed Magnesium Stat Lab 12/24/24 13:18 Completed NT Pro Brain Natriuretic Pep. Stat Lab 12/24/24 13:18 Completed PT INR [Prothrombin Time INR] Stat Lab 12/24/24 13:18 Completed Rapid PCR Covid and Flu A/B Stat Lab 12/24/24 13:09 Completed Troponin I Q3H Lab 12/24/24 16:00 Ordered Troponin I Q3H Lab 12/24/24 19:00 Ordered Troponin I Stat Lab 12/24/24 13:18 Completed Urinalysis and Microscopic Stat Lab 12/24/24 14:09 Completed VBG [Venous Blood Gas] Stat RT 12/24/24 15:22 Completed Medical Decision Narrative: 54-year-old female presents the emergency department with abdominal pain chest pain shortness of air for the last 2 days, nausea no vomiting, differential diagnosis include but not limited to, cardiac arrhythmia, electrolyte disturbance, COPD exacerbation, pneumothorax, ACS, gastritis, GERD, anxiety reaction, panic attack, small bowel traction, ileitis, colitis, diverticulitis, pancreatitis, PE, pneumonia, costochondritis, other musculoskeletal chest pain, pyelonephritis, acute UTI. I discussed this patient's case with the attending physician Dr. Owens Will obtain basic laboratory studies, lactic acid level, lipase level, magnesium level, proBNP, VBG, PT/INR, rapid PCR COVID flu, troponin, urinalysis, chest x- ray, CTA chest with and without contrast PE protocol, CT abdomen pelvis with contrast, as well as EKG, will give 4 mg IV Zofran for nausea, will give 0.5 mg IV Dilaudid for pain. CBC unremarkable Coags unremarkable, COVID-19 and influenza are negative via PCR CMP is notable for hypercapnia at 35, no lactic acidosis, proBNP is mildly elevated at 1020, troponin is 0.02, lipase in normal limits Of note patient fell asleep , per nursing staff and did have some oxygen desaturation, currently on 3 L nasal cannula, from 2 L. I along with the attending physician reviewed the patient's EKG, NSR at 60 bpm, SC intervals 209, QT intervals 4 5/421 there is no STEMI. I reviewed the patient's chest x-ray along the corresponding radiologic report opposes in both bases and there present atelectasis or pneumonia. I reviewed the patient's CT abdomen pelvis with contrast along the corresponding radiologic report, increase soft tissue density in the midline anterior abdominal wall containing sutures may be due to prior surgery, sludge balls or gallstones the gallbladder. I reviewed the patient's CTA chest without contrast PE protocol, no evidence of pulmonary embolism to the segmental level, unruptured aneurysm of the ascending aorta 4.3 cm, no dissection of the aorta. UA is unremarkable VBG is notable for pH 7.24, pCO2 is elevated 88.7, PO2 is elevated 43.5, ELEVATED 37.1, normal venous lactic. I was able to POCUS the patient's gallbladder, there is some gallbladder sludge versus stone, no pericholecystic fluid or inflammation around the gallbladder see gallbladder POCUS bedside images and full ultrasound note for details. I had a long discussion with the patient and family at the bedside, I offered admission for the patient's hypercapnic respiratory failure, patient did have some episodes of desaturation here in the emergency department, but they were only when she was sleeping , patient remains around 2 to 3 L nasal cannula around her baseline, has as needed oxygen needed at home, has KATHARINA, on CPAP, .she declined admission at this time would like to follow-up with PCP and specialist, shared decision-making was utilized. Discussed all findings with her incidental and otherwise, recommend follow-up with general surgeon in the upcoming days, as well as cardiothoracic surgeon, patient voiced understanding and agreed with the current treatment plan/discharge plan. Patient was given strict ED return precautions. Patient once again voiced understanding GCS 15 upon discharge symptoms controlled. <Hemant Reyes JR, DO - Last Filed: 12/24/24 15:35> Vital Signs: 12/24/24 13:03 12/24/24 13:03 12/24/24 13:31 Temperature 97.9 F 97.9 F Temperature Source Oral Pulse Rate 78 77 Pulse Rate [Right] 78 Respiratory Rate 22 22 Blood Pressure 158/63 H 109/55 L Blood Pressure [Left Arm] 158/63 H Blood Pressure Mean [Left Arm] 94 02 Sat by Pulse Oximetry 86 L 86 L 93 L Oxygen Delivery Method Room Air Room Air Nasal Cannula Oxygen Flow Rate (LPM) 2 12/24/24 14:31 12/24/24 15:01 Temperature Temperature Source Pulse Rate Pulse Rate [Right] Respiratory Rate 16 18 Blood Pressure 161/62 H 136/59 L Blood Pressure [Left Arm] Blood Pressure Mean [Left Arm] 02 Sat by Pulse Oximetry Oxygen Delivery Method Oxygen Flow Rate (LPM) Lab Data Lab Results 12/24/24 13:09: SARS-CoV-2 (PCR) Not detected, Influenza A Untype (PCR) Not detected, Influenza Type B (PCR) Not detected 12/24/24 13:18: WBC 9.9, RBC 5.59 H, Hgb 16.3 H, Hct 55.0 H, MCV 98.4, MCH 29.2, MCHC 29.6 L, RDW 13.6, Plt Count 237, MPV 9.0, Neut % (Auto) 72.6, Lymph % (Auto) 19.0, Trimble % (Auto) 6.3, Eos % (Auto) 0.4, Baso % (Auto) 0.6, Neut # (Auto) 7.2, Lymph # (Auto) 1.9, Trimble # (Auto) 0.6, Eos # (Auto) 0.0, Baso # (Auto) 0.1, PT 10.9, INR 0.98, Sodium 142, Potassium 4.2, Chloride 100, Carbon Dioxide 35 H, Anion Gap 11.2, BUN 13, Creatinine 0.60, Estimated Creat Clear 209, Estimated GFR 104, Est GFR ( Amer) 126, Glucose 130 H, Lactate 1.7, Calcium 8.6, Magnesium 1.7, Total Bilirubin 0.4, AST 36, ALT 12, Alkaline Phosphatase 65, Troponin I 0.02, NT-Pro-B Natriuret Pep 1020 H, Total Protein 7.8, Albumin 4.2, Globulin 3.6 H, Albumin/Globulin Ratio 1.2, Lipase 40 12/24/24 14:09: Urine Color Yellow, Urine Appearance Clear, Urine pH 6.5, Ur Specific Nixa 1.010, Urine Protein Negative, Urine Glucose (UA) Negative, Urine Ketones Negative, Urine Blood Negative, Urine Nitrate Negative, Urine Bilirubin Negative, Urine Urobilinogen 0.2, Ur Leukocyte Esterase Trace, Urine RBC None, Urine WBC 3-5, Ur Squamous Epith Cells 10-20, Urine Bacteria 1+ 12/24/24 15:22: VBG pH 7.24 L, VBG pCO2 88.7 H, VBG pO2 43.5 H, VBG HCO3 37.1 H, VBG Total CO2 39.8 H, VBG O2 Saturation 80.5 H, VBG Base Excess 9.7 H, VBG Lactic Acid 1.1 Orders (Tests/Meds): ED MEDICATIONS Generic Name Dose Route Start Last Admin Trade Name Susana PRN Reason Stop Dose Admin Sodium Chloride 10 ml 12/24/24 14:12 12/24/24 14:13 Sodium Chloride 0.9% 10ml Syr (Rad Only) IV 01/23/25 14:11 10 ml NEEDED PRN Administration Maintain IV Site Discontinued Medications Generic Name Dose Route Start Last Admin Trade Name Susana PRN Reason Stop Dose Admin Hydromorphone HCl 0.5 mg 12/24/24 13:08 12/24/24 13:34 Hydromorphone 2mg/Ml Syringe IV 12/24/24 13:09 0.5 mg ONCE ONE Administration Iopamidol 80 ml 12/24/24 14:12 12/24/24 14:13 Iopamidol-370 (76%);100ml Bottle IV 12/24/24 14:13 80 ml ONCE ONE Administration Ondansetron HCl 4 mg 12/24/24 13:00 12/24/24 13:34 Ondansetron 4mg/2ml Vial IV 12/24/24 13:01 4 mg ONCE ONE Administration Sodium Chloride 50 ml 12/24/24 14:12 12/24/24 14:12 0.9 % Sodium Chloride 50 Ml Vial IV 12/24/24 14:13 50 ml ONCE ONE Administration ORDERS Category Date Time Status CT abdomen pelvis w con Stat Cat Scan 12/24/24 12:[address] angio chest PE protocol Stat Cat Scan 12/24/24 12:59 Completed POCUS Point of Care (ER Only) Stat Exams 12/24/24 15:04 Completed XR chest portable Stat Exams 12/24/24 12:59 Completed Complete Blood Count Auto Diff Stat Lab 12/24/24 13:18 Completed Comprehensive Metabolic Panel Stat Lab 12/24/24 13:18 Completed Lactic Acid Stat Lab 12/24/24 13:18 Completed Lipase Stat Lab 12/24/24 13:18 Completed Magnesium Stat Lab 12/24/24 13:18 Completed NT Pro Brain Natriuretic Pep. Stat Lab 12/24/24 13:18 Completed PT INR [Prothrombin Time INR] Stat Lab 12/24/24 13:18 Completed Rapid PCR Covid and Flu A/B Stat Lab 12/24/24 13:09 Completed Troponin I Q3H Lab 12/24/24 16:00 Ordered Troponin I Q3H Lab 12/24/24 19:00 Ordered Troponin I Stat Lab 12/24/24 13:18 Completed Urinalysis and Microscopic Stat Lab 12/24/24 14:09 Completed VBG [Venous Blood Gas] Stat RT 12/24/24 15:22 Completed Procedures <Hemant Reyes JR, DO - Last Filed: 12/24/24 15:35> Limited Ultrasound Indication:: RUQ pain Views:: subcostal, right sided, long and short axis views Findings:: biliary sludge, gallstone Interpretation:: consistent with biliary sludge Disclaimer: somewhat limited secondary to body habitus Critical Care <Hemant Reyes JR, DO - Last Filed: 12/24/24 15:35> Critical Care Time Critical Care Time: No
[2024-12-24 13:03] VITALS: BP 158/63; PULSE 78; RESP 22; TEMP 36.6; O2SAT 86; BMI 40.1
--- NOTE | 2024-12-24 13:11 | ECG_ITS ---
APPROVED REPORT Exam: Resting ECG HR:67 bpm ECG Measurements Heart Rate 67 AXES MO 209 P 67 QRSd 90 QRS 38 QT 405 T 90 QTc 421 Conclusion SINUS RHYTHM NONSPECIFIC T-WAVE ABNORMALITY BORDERLINE ECG UNCONFIRMED REPORT Normal sinus rhythm. No ST elevation or depression. T wave inversions in V2 with downgoing QRS. Electronically signed by : ADRIAN HOSKINS, 12/24/2024 17:44:10
[2024-12-24 13:14] LABS: Coronavirus 19, PCR Not Detected (NotDetected); Influenza A, PCR Not Detected (NotDetected); Influenza B, PCR Not Detected (NotDetected)
[2024-12-24 13:29] LABS: Hematocrit 55.0 % (37.0-47.0); Hemoglobin 16.3 g/dL (12.2-16.2); Immature Granulocytes % 1.1 %; Mean Corpuscular HGB Conc 29.6 g/dL (31.8-35.4); Mean Corpuscular Hemoglobin 29.2 pg (27.0-31.2); Mean Corpuscular Volume 98.4 fl (81-99); Nucleated Red Blood Cells % 0 %; Platelet Count 237 K/mm3 (142-424); Red Blood Count 5.59 M/mm3 (4.20-5.40); Red Cell Distribution Width-SD 49.9 fL; White Blood Count 9.9 K/mm3 (4.8-10.8)
[2024-12-24 13:31] VITALS: BP 109/55; PULSE 77; O2SAT 93
[2024-12-24] MEDS: HYDROMORPHONE 2MG/ML SYRINGE 0.5 MG IV (13:34)
[2024-12-24] MEDS: ONDANSETRON 4MG/2ML VIAL 4 MG IV (13:34)
[2024-12-24 13:37] LABS: Albumin Level 4.2 g/dl (3.5-5.0); Chloride 100 mmol/L (98-107); Potassium 4.2 mmoL/L (3.5-5.1); Sodium 142 mmol/L (136-145)
[2024-12-24 13:39] LABS: Lipase 40 U/L (23-300); Magnesium 1.7 mg/dl (1.6-2.3)
[2024-12-24 13:40] LABS: Alanine Aminotransferase 12 U/L (12-78); Albumin/Globulin Ratio 1.2 (1.1-1.8); Alkaline Phosphatase 65 U/L (38-126); Anion Gap 11.2 mEq/L (5-15); Aspartate Amino Transferase 36 U/L (14-36); Bilirubin,Total 0.4 mg/dl (0.2-1.3); Blood Urea Nitrogen 13 mg/dl (7-17); Calcium 8.6 mg/dl (8.4-10.2); Carbon Dioxide 35 mmol/L (22.0-30.0); Creatinine Clearance Estimated 209 mL/min (50-200); Creatinine,Serum 0.60 mg/dl (0.52-1.04); Estimated Glomerular Filt Rate 104 ml/min (>60); GFR (African American) 126 ML/MIN (>60); Globulin 3.6 g/dL (1.3-3.2); Glucose 130 mg/dl (74-100); Total Protein,Serum 7.8 g/dl (6.3-8.2)
[2024-12-24 13:49] LABS: NT Pro Brain Natriuretic Pep. 1020 pg/mL (0-125)
[2024-12-24 13:52] LABS: Troponin I 0.02 ng/ml (0.00-0.034)
[2024-12-24 14:08] LABS: INR 0.98 (0.9-1.1); Prothrombin Time 10.9 seconds (10.1-12.5)
[2024-12-24] MEDS: 0.9 % SODIUM CHLORIDE 50 ML VIAL IV (14:12)
[2024-12-24] MEDS: IOPAMIDOL-370 (76%);100ML BOTTLE 80 ML IV (14:13)
[2024-12-24] MEDS: SODIUM CHLORIDE 0.9% 10ML SYR (RAD ONLY) 10 ML IV (14:13)
[2024-12-24 14:16] LABS: Microscopic, Urine URINE MICROSCOPIC (MICROSCOPIC)
[2024-12-24 14:18] LABS: Bilirubin,Urine Negative (Negative); Color,Urine YELLOW (Yellow); Glucose,Urine (UA) Negative (Negative); Ketones,Urine Negative (Negative); Leukocyte Esterase,Urine TRACE (Negative); PH,Urine 6.5 (5.0-8.5); Protein,Urine Negative (Negative); Specific Gravity, Urine 1.010 (1.005-1.030); Urobilinogen,Urine 0.2 EU/dl (0.2)
[2024-12-24 14:31] VITALS: BP 161/62; RESP 16
[2024-12-24 15:01] VITALS: BP 136/59; RESP 18
[2024-12-24 15:08] LABS: Bacteria,Urine 1+ /lpf
[2024-12-24 15:30] VITALS: BP 127/57; PULSE 73; RESP 15; O2SAT 93
[2024-12-24 15:31] LABS: Lactate Venous 1.1 mmol/L (0.4-2.0); VBG HCO3 37.1 mmol/L (23-30); VBG PH 7.24 mmol/L (7.31-7.41); VBG PO2 43.5 mmol/L (28-40)
[2024-12-24 15:34] LABS: VBG PCO2 88.7 mmol/L (35-51)
[2024-12-24 15:59] VITALS: BP 127/57; PULSE 74; RESP 20; TEMP 36.8; O2SAT 96
--- NOTE | 2024-12-24 21:28 | ED_ITS ---
<Statement entered by José Owens MD - 12/26/24 06:58> I was consulted by the SUHAS, and we discussed the complexity of the problems being addressed. I approve the treatment and management plan for this patient's care in the emergency department, thus performing a substantive portion of the medical decision making. José Owens MD Discharge Plan Disposition Patient Disposition: Home, Self-Care Condition: Good Prescriptions Prescriptions: No Action diazepam 10 mg tablet 10 mg PO TID simvastatin 20 mg tablet 20 mg PO DAILY Patient Comments: TAKE 1 TABLET BY MOUTH EVERY DAY omeprazole 20 mg capsule,delayed release(DR/EC) 20 mg PO DAILY Patient Comments: TAKE 1 CAPSULE BY MOUTH EVERY DAY levothyroxine 175 mcg tablet 175 mcg PO DAILY Qty: 90 4RF oxycodone-acetaminophen 10-325 mg tablet 1 tab PO Q6HP PRN (Reason: PAIN) furosemide 40 mg tablet 40 mg PO DAILY PRN (Reason: edema) Qty: 30 4RF albuterol sulfate 90 mcg/actuation HFA aerosol inhaler 2 inh INHALATION Q6H PRN (Reason: shortness of breath or wheezing) 90 Days Qty: 8.5 3RF lisinopril 10 mg tablet See Rx Instructions .ROUTE .COMPLEX Qty: 90 3RF Dose Instruction: TAKE 1 TABLET BY MOUTH EVERY DAY FOR BLOOD PRESSURE Rx Instructions: TAKE 1 TABLET BY MOUTH EVERY DAY FOR BLOOD PRESSURE bisoprolol fumarate 5 mg tablet See Rx Instructions .ROUTE .COMPLEX Qty: 90 4RF Dose Instruction: TAKE 1 TABLET BY MOUTH EVERY DAY Rx Instructions: TAKE 1 TABLET BY MOUTH EVERY DAY gabapentin 600 MG tablet 600 mg PO 0900,1200 Rx Instructions: take 1 tablet (600mg) each morning and at noon, take 2 tablets (1200mg) at bedtime meloxicam 15 mg tablet 15 mg PO DAILY Qty: 30 0RF Referrals Follow up/Referrals: Manny Edgar MD [Staff Physician, General Surgery] - See instructions Suman Calderon MD [Consulting Physician, Cardiovascular/Thoracic Surg] - See instructions Santana Shcneider [Primary Care Provider, Medical] - See instructions Activity Restrictions/Add. Instructions Additional Instructions/Restrictions: Please return to the emergency department with any worsening signs or symptoms, such as worsening chest pain abdominal pain nausea vomiting, please take all your medications as prescribed, use your at home oxygen and CPAP machine as prescribed. Please follow-up with your family doctor the general surgeon as above as well as cardiothoracic surgeon as above. Please call their office first thing Thursday morning for an appointment. Clinical Impressions Clinical Impression: Thoracic ascending aortic aneurysm, Abdominal pain Cholelithiasis Qualifiers: Cholelithiasis location: gallbladder Cholecystitis presence: without cholecystitis Biliary obstruction: without biliary obstruction Qualified Code(s): K80.20 - Calculus of gallbladder without cholecystitis without obstruction Instructions Patient Instructions: DI for Gallstones, DI for Acute Abdominal Pain, DI for Aortic Aneurysm Print Language Print Language: Prydeinig Discharge ED Provider: José Owens Adult HPI General Chief complaint: Abdominal Pain Stated complaint: abdomen pain,SOA Time Seen by Provider: 12/24/24 12:54 Mode of Arrival: Ambulatory Source of Information: Patient History of Present Illness Onset (ago): day(s) Related Data Home Medications ?Medication ?Instructions ?Recorded ?Confirmed diazepam 10 mg tablet 10 mg PO TID Anxiety 8 06/02/24 oxycodone-acetaminophen 10 mg-325 1 tab PO Q6HP PRN PA IN 02/06/20 06/02/24 mg tablet gabapentin 600 mg tablet 600 mg PO 0900,1200 Pain 06/02/24 simvastatin 20 mg tablet 20 mg PO DAILY 06/03/2305/06 omeprazole 20 mg capsule,delayed 20 mg PO DAILY 06/02/24 release Previous Rx's ?Medication ?Instructions ?Recorded furosemide 40 mg tablet 40 mg PO DAILY PRN edema #30 tabs 11/27/22 albuterol sulfate 90 mcg/actuation 2 inh inhalation Q6 H PRN shortness 12/19/22 aerosol inhaler of breath or wheezing 90 day s #8.5 grams meloxicam 15 mg tablet 15 mg PO DAILY pain #30 tabs 02/18/23 levothyroxine 175 mcg tablet 175 mcg PO DAILY THYROID #90 tabs 06/02/24 bisoprolol fumarate 5 mg tablet See Rx Instructions .R oute 06/29/24 .COMPLEX #90 tabs lisinopril 10 mg tablet See Rx Instructions .Route 0 06/29/24 .COMPLEX #90 tabs Allergies Allergy/AdvReac Type Severity Reaction Status Date / Time nitrofurantoin (From Allergy Severe S-DIFF. Verified 06/02/24 14:21 MACROBID) BREATHING metronidazole Allergy Intermediate Verified 06/02/24 14:21 codeine (CODEINE) Allergy Unknown Verified 06/02/24 14:21 [facility] Disclaimer: The information contained in this section may have been updated after the patient was seen, as this information can be updated by other users. Medical History (Updated 12/24/24 @ 15:58 by EMELINA Monsivais) Hypothyroidism Fatigue COPD (chronic obstructive pulmonary disease) Abnormal PFT Encounter for screening for malignant neoplasm of lung in current smoker with 30 pack year history or greater Smoking greater than 30 pack years Dyspnea on exertion Tobacco abuse disorder Tobacco abuse counseling History of sleep apnea History of COPD PAD (peripheral artery disease) Pre-op evaluation Surgical History History of appendectomy History of total hysterectomy History of total hip replacement H/O thyroidectomy Family History Other Asthma Hypertension Kidney disease Thyroid disorder Social History Smoking Status: Current every day smoker tobacco type: cigarettes packs per day: 1 alcohol intake: never substance use type: denies use current occupational status: disabled Travel in the last 8 weeks?: None household members: spouse and children housing: house caffeine: Yes Have you lived/traveled outside US in past 30 days?: No Contact w/someone who lives/traveled outside US past 30 days?: No Exposure to someone with infectious disease in past 14 days?: No Do you have a fever (greater than 100.4 F or 38 C)?: No Have you tested positive for COVID-19?: No Exposed to someone with COVID-19 in past 14 days?: No Do you have a sore throat?: No Do you have a cough?: No Do you have any weakness?: No Do you have any diarrhea?: No Are you experiencing any unusual bleeding?: No Do you have any muscle aches/pain?: No Do you have any abdominal pain?: No Are you experiencing loss of taste or smell?: No Other Medical History Have you received the Flu Vaccine for this season: No Have you received the Pneumonia Vaccine: No ROS Obtained: Yes All systems reviewed & no additional complaints except as documented Physical Exam General General appearance: alert and in no apparent distress Respiratory Respiratory exam: Present wheezes Cardiovascular Cardiovascular exam: Present regular rate Neurological Exam Neurological exam: Present alert Medical Decision Making Medical Records Screening: Per USPSTF and CDC recommendations, given the prevalence of disease in our region, it is our hospital?s policy to screen for HIV and viral Hepatitis for all patients aged 18 and over and those with ongoing risk factors. Miguel Inquiry Pt receiving controlled substance: Yes Miguel was queried for this patient: No Risks and benefits of using a controlled substance: were discussed with pt by me Vital Signs: 12/24/24 13:03 12/24/24 13:03 12/24/24 13:31 Temperature 97.9 F 97.9 F Temperature Source Oral Pulse Rate 78 77 Pulse Rate [Right] 78 Respiratory Rate 22 22 Blood Pressure 158/63 H 109/55 L Blood Pressure [Left Arm] 158/63 H Blood Pressure Mean [Left Arm] 94 02 Sat by Pulse Oximetry 86 L 86 L 93 L Oxygen Delivery Method Room Air Room Air Nasal Cannula Oxygen Flow Rate (LPM) 2 12/24/24 14:31 12/24/24 15:01 12/24/24 15:30 Temperature Temperature Source Pulse Rate 73 Pulse Rate [Right] Respiratory Rate 16 18 15 Blood Pressure 161/62 H 136/59 L 127/57 L Blood Pressure [Left Arm] Blood Pressure Mean [Left Arm] 02 Sat by Pulse Oximetry 93 L Oxygen Delivery Method Oxygen Flow Rate (LPM) 12/24/24 15:59 Temperature 98.3 F Temperature Source Pulse Rate 74 Pulse Rate [Right] Respiratory Rate 20 Blood Pressure 127/57 L Blood Pressure [Left Arm] Blood Pressure Mean [Left Arm] 02 Sat by Pulse Oximetry Oxygen Delivery Method Nasal Cannula Oxygen Flow Rate (LPM) 2 Lab Data Lab Results 12/24/24 13:09: SARS-CoV-2 (PCR) Not detected, Influenza A Untype (PCR) Not detected, Influenza Type B (PCR) Not detected 12/24/24 13:18: WBC 9.9, RBC 5.59 H, Hgb 16.3 H, Hct 55.0 H, MCV 98.4, MCH 29.2, MCHC 29.6 L, RDW 13.6, Plt Count 237, MPV 9.0, Neut % (Auto) 72.6, Lymph % (Auto) 19.0, [place] % (Auto) 6.3, Eos % (Auto) 0.4, Baso % (Auto) 0.6, Neut # (Auto) 7.2, Lymph # (Auto) 1.9, [place] # (Auto) 0.6, Eos # (Auto) 0.0, Baso # (Auto) 0.1, PT 10.9, INR 0.98, Sodium 142, Potassium 4.2, Chloride 100, Carbon Dioxide 35 H, Anion Gap 11.2, BUN 13, Creatinine 0.60, Estimated Creat Clear 209, Estimated GFR 104, Est GFR ( Amer) 126, Glucose 130 H, Lactate 1.7, Calcium 8.6, Magnesium 1.7, Total Bilirubin 0.4, AST 36, ALT 12, Alkaline Phosphatase 65, Troponin I 0.02, NT-Pro-B Natriuret Pep 1020 H, Total Protein 7.8, Albumin 4.2, Globulin 3.6 H, Albumin/Globulin Ratio 1.2, Lipase 40 12/24/24 14:09: Urine Color Yellow, Urine Appearance Clear, Urine pH 6.5, Ur Specific Pierson 1.010, Urine Protein Negative, Urine Glucose (UA) Negative, Urine Ketones Negative, Urine Blood Negative, Urine Nitrate Negative, Urine Bilirubin Negative, Urine Urobilinogen 0.2, Ur Leukocyte Esterase Trace, Urine RBC None, Urine WBC 3-5, Ur Squamous Epith Cells 10-20, Urine Bacteria 1+ 12/24/24 15:22: VBG pH 7.24 L, VBG pCO2 88.7 H, VBG pO2 43.5 H, VBG HCO3 37.1 H, VBG Total CO2 39.8 H, VBG O2 Saturation 80.5 H, VBG Base Excess 9.7 H, VBG Lactic Acid 1.1 12/24/24 13:18 12/24/24 13:18 Orders (Tests/Meds): ED MEDICATIONS Discontinued Medications Generic Name Dose Route Start Last Admin Trade Name Guilhermeq PRN Reason Stop Dose Admin Hydromorphone HCl 0.5 mg 12/24/24 13:08 12/24/24 13:34 Hydromorphone 2mg/Ml Syringe IV 12/24/24 13:09 0.5 mg ONCE ONE Administration Iopamidol 80 ml 12/24/24 14:12 12/24/24 14:13 Iopamidol-370 (76%);100ml Bottle IV 12/24/24 14:13 80 ml ONCE ONE Administration Ondansetron HCl 4 mg 12/24/24 13:00 12/24/24 13:34 Ondansetron 4mg/2ml Vial IV 12/24/24 13:01 4 mg ONCE ONE Administration Sodium Chloride 50 ml 12/24/24 14:12 12/24/24 14:12 0.9 % Sodium Chloride 50 Ml Vial IV 12/24/24 14:13 50 ml ONCE ONE Administration Sodium Chloride 10 ml 12/24/24 14:12 12/24/24 14:13 Sodium Chloride 0.9% 10ml Syr (Rad Only) IV 01/23/25 14:11 10 ml NEEDED PRN Administration Maintain IV Site ORDERS Category Date Time Status CT abdomen pelvis w con Stat Cat Scan 12/24/24 12:[address] angio chest PE protocol Stat Cat Scan 12/24/24 12:59 Completed POCUS Point of Care (ER Only) Stat Exams 12/24/24 15:04 Completed XR chest portable Stat Exams 12/24/24 12:59 Completed Complete Blood Count Auto Diff Stat Lab 12/24/24 13:18 Completed Comprehensive Metabolic Panel Stat Lab 12/24/24 13:18 Completed Lactic Acid Stat Lab 12/24/24 13:18 Completed Lipase Stat Lab 12/24/24 13:18 Completed Magnesium Stat Lab 12/24/24 13:18 Completed NT Pro Brain Natriuretic Pep. Stat Lab 12/24/24 13:18 Completed PT INR [Prothrombin Time INR] Stat Lab 12/24/24 13:18 Completed Rapid PCR Covid and Flu A/B Stat Lab 12/24/24 13:09 Completed Troponin I Stat Lab 12/24/24 13:18 Completed Urinalysis and Microscopic Stat Lab 12/24/24 14:09 Completed VBG [Venous Blood Gas] Stat RT 12/24/24 15:22 Completed Medical Decision Narrative: Addendum being performed at approximately 9:20 PM, when ultrasound images were transferred over from PACS. Limited RUQ ultrasound Indication: [-Abdominal pain -Nausea/Vomiting Identified structures: -Gallbladder -Gallbladder wall -Common bile duct -Liver Findings: Sonographic Artis sign: Absent [Present] Gallstones: [Absent] Sludge: Present [Present] Pericholecystic fluid: [Absent] Maximal GB wall thickness (mm): [normal is </= 3mm] [Normal] Common bile duct width (mm): [normal is </= 6mm] [Normal] Gallbladder width (cm): [normal is < 4cm] [Normal] Gallbladder length (cm): [normal is < 10cm] [Normal] Impression: [-Cholelithiasis Images [were saved] to permanent archive The study [was] technically adequate CPT 58213-90 This study was performed by me, and I personally interpreted all images/videos. Based on my clinical judgement, these images were [adequate/inadequate] and [did/did not] necessitate further imaging. Critical Care Critical Care Time Critical Care Time: No
== END 2024-12-24 16:10 | disposition home or self-care (01) ==
PROVIDERS: Physician Assistant; Emergency Provider Student in an Organized Health Care Education/Training Program; PCP Family Medicine
DX: R10.9 Unspecified abdominal pain (principal); I71.21 Aneurysm of the ascending aorta, without rupture; K80.20 Calculus of gallbladder without cholecystitis without obstruction; F17.210 Nicotine dependence, cigarettes, uncomplicated
CPT/HCPCS: 71045; 71275; 74177; 80053; 81001; 82803; 83605; 83690; 83735; 83880; 84484; 85025; 85610; 87636; 93005; 96374; 96375; 99285; J1171; J2405; Q9967

== ENCOUNTER 2025-01-05 09:29 | Outpatient (CLI) | payer MEDICARE, MEDICAID, SELFPAY ==
--- OUTSIDE RECORDS SUMMARY | 2024-12-30 13:00 | XMS_ITS | Encounter Summary ---
Author Organization [facility] Address [address] [place] [address] Care Team Providers Care Meat Slicer Name Role Phone Santana Schneider MD Primary Care Provider [phone] Reason for Referral * Physical Therapy (Routine) - Pending Review Specialty Diagnoses / Procedures Referred By Miguel Ángel haynes Referred To Contact Physical Therapy Diagnoses History of total right hip replacement Castillo Morris PA-C [address] [place] [address] Phone: tel: fax: Referral ID Status Reason Start Date Expiration Date V isits Requested Visits Authorized [id number] Pending Review 12/30/2024 12/30/2025 1 1 Question [...] Description 12/30/2024 1:00 [place] [address] Castillo Morris PA-C [address] [place] [address] History of total right hip replacement (Primary Dx) Social History Tobacco Use Types Packs/Day Years Used Date Smoking Tobacco: Every Day Cigarettes 1 29.7 Started: 04/07/1995 Smokeless Tobacco: Never Alcohol Use [...] Description 02/15/2025 10:45 AM EDT Office Visit [place] [phone] Castillo Morris PA-C [address] [place] [address] Scheduled Referrals Name Type Priority Associated Diagnoses [...] replacement documented in this encounter Care Teams Meat Slicer Relationship Specialty Start Date End Date Santana Schneider MD [address] [place] [id number] PCP - General Family Medicine 02/06/17 documented as of this encounter
--- OUTSIDE RECORDS SUMMARY | 2024-12-30 13:30 | XMS_ITS | Encounter Summary ---
Author Organization [facility] Address [address] [place] [address] Care Team Providers Care Supervisor Files Name Role Phone Santana Schneider MD Primary Care Provider [phone] Encounter Details Date Type Department Care Team (Latest Contact Info) Description 12/30/2024 1:30 [place] [address] Castillo Morris PA-C [address] [place] [address] History of total right hip replacement Social [...] Description 02/15/2025 10:45 [place] [address] Castillo Morris PA-C [address] [place] [address] documented as of this encounter Procedures Procedure [...] replacement documented in this encounter Care Teams Supervisor Files Relationship Specialty Start Date End Date Santana Schneider MD [address] [place] [address] PCP - General Family Medicine 02/06/17 documented as of this encounter
--- OUTSIDE RECORDS SUMMARY | 2024-12-30 13:45 | XMS_ITS | Encounter Summary ---
Author Organization [facility] Address [address] [place] [address] Care Team Providers Care Spinning Frame Cleaner Name Role Phone Santana Schneider MD Primary Care Provider [phone] Encounter Details Date Type Department Care Team (Latest Contact Info) Description 12/30/2024 1:45 PM [place] [address] Castillo Morris PA-C [address] [place] [address] History of total right hip replacement Social [...] Description 02/15/2025 10:45 [place] [address] Castillo Morris PA-C [address] [place] [address] documented as of this encounter Procedures Procedure [...] replacement documented in this encounter Care Teams Spinning Frame Cleaner Relationship Specialty Start Date End Date Santana Schneider MD [address] [place] [address] PCP - General Family Medicine 02/06/17 documented as of this encounter
--- NOTE | 2025-01-05 09:30 | US_ITS ---
FINAL REPORT CLINICAL HISTORY: Right upper quad pain COMPARISON: None FINDINGS: Sonographic images of the right upper quadrant were obtained. The pancreas is obscured. There is fatty infiltration of the liver. A large gallstone is present in the gallbladder. There is no evidence of gallbladder wall thickening. There is no evidence of biliary ductal dilatation.The common duct measures 6 mm. Limited images of the right kidney are unremarkable. IMPRESSION: Fatty liver. Large gallstone. Reviewed, Interpreted and Dictated by Checo Mcgarry MD Transcribed by Ines Farmer Authenticated and [facility]
--- OUTSIDE RECORDS SUMMARY | 2025-01-05 09:32 | XMS_ITS | Clinical Summary ---
Author Organization [facility] Address [address] [place] [address] Phone Care Team Providers Care Museum Preparator Name Role Phone Santana Schneider MD Primary Care Provider [phone] Allergies Active Allergy Reactions Criticality Noted Date [...] Take 1 Tablet by mouth daily. Active dexAMETHasone (DECADRON) 6 mg Oral TabletIndication s:History of total right hip replacement Take 1 Tablet by mouth daily (with breakfast) for 7 days. 7 Tablet 12/30/2024 5 Active Active Problems Problem Noted Date Diagnosed Date Osteoarthritis of hip 06/21/2018 Degeneration of lumbar intervertebral disc 11/19 Left lower quadrant pain 12/02/2016 Coronary arteriosclerosis 09/12/2016 Hypertensive disorder 09/11/2016 Hypothyroidism 09/11/2016 Asthma 09/11/2016 Anxiety 09/11/2016 S/P repair of ventral hernia 04/25/2015 Wound infection after surgery 04/25/2015 Incisional hernia, without obstruction or gangre ne 03/01/2015 Encounters Date Type Department Care Team Description 12/30/2024 1:45 [place] [address] Castillo Morris PA-C History of total right hip replacement 12/30/2024 1:30 [place] [address] Castillo Morris PA-C History of total right hip replacement 12/30/2024 1:00 [place] [address] Castillo Morris PA-C History of total right hip replacement (Primary Dx) from Last 3 Months Surgical History Surgery Date Site/Laterality Comments APPENDECTOMY 1988 TUBAL LIGATION 1992 THYROID SURGERY removed HYSTERECTOMY DILATION AND CURETTAGE OF UTERUS x 2 SALPINGO-OOPHORECTOMY VENTRAL HERNIA REPAIR 04/05/2015 N/A OPEN VENTRAL HERNIA REPAIR WITH MESH BILATERAL COMPARTMENT RELEASE; Surgeon: Tequila Zepeda MD; Location: [facility] MAIN OR; Service: General Medical devices from this surgery are in the Medical Devices section. HIP ARTHROPLASTY 10/26/2018 Right RIGHT TOTAL HIP REPLACEMENT; Surgeon: Anjel Mccrary MD; Location: [facility] MAIN OR; Service: Orthopedics Medical devices from [...] 11/10/2023 10:25 AM EDT Plan of Treatment Upcoming Encounters Date Type Department Care Team (Late st Contact Info) Description 02/15/2025 10:45 AM EDT Office Visit [address] [address] Castillo Morris PA-C [address] [place] [address] Health Maintenance Due Date Last Done Comments Wellness Exam Medicare 1973 Pneumococcal Vaccine 50+ (1 of 2 - PCV) 1989 Zoster (1 of 2) 1989 Cervical Cancer Screening 08/16/1991 Pap Smear 08/16/1991 HPV/Pap Cotest 2000 Hepatitis B Vaccine (2 of 3 - 19+ 3-dose series) 02/22/2013 01/25/2013 Breast Cancer Screening 05/02/2015 05/02/20 13, 01/07/2012, 12/09/2010, Additional history exists Cologuard 08/16/2015 Colon Cancer Screening 08/16/2015 Colonoscopy 08/16/2015 FIT 08/16/2015 Sigmoidoscopy 08/16/2015 Virtual Colonography 08/16/2015 Low Dose Lung Cancer Screening 2020 DTaP/TDaP/Td (2 - Td or Tdap) 12/18/2021 12/19/2011 COVID-19 Vaccine (2 - Mixed Product risk series) 04/15/2023 03/18/2023 Influenza Vaccine (#1) 2025 Meningococcal B Vaccine Aged Out No l onger eligible based on patient's age to complete this topic Medical Devices Implanted Type Area Cds Sales Advisor Device Identifier Shelf Expiration Date Model / Serial / Lot Mesh Soft 15cm X 15cm - [id number] Implanted:Qty: 1 on 04/05/2015 by Yousif Zepeda MD at [facility] N/A: Abdomen CR BARD:DAVOL 07/02/2019 [id number] / / [id number] Trident Ii Tritanium Clusterhole 52e - [id number] Implanted:Qty: 1 on 10/26/2018 by Anjel Mccrary MD at [facility] Right: Hip AGNES:ORTHOPED ICS 07/29/2023 [id number] / / [id number] Screw Trident Ii Hex Low Profile 6.5mm X 25mm - [id number] Implanted:Qty: 2 on 10/26/2018 by Anjel Mccrary MD at [facility] Right: Hip AGNES:ORTHOPED ICS 07/22/2023 [id number] / / [id number] Insert Trident 3 X 0 Degree 36mm - [id number] Implanted:Qty: 1 on 10/26/2018 by Anjel Mccrary MD at [facility] Right: Hip AGNES:ORTHOPED ICS 09/05/2023 [id number] / / [id number] Size 5 Accolade Ii 127 Deg - [id number] Implanted:Qty: 1 on 10/26/2018 by Anjel Mccrary MD at [facility] Right: Hip AGNES:ORTHOPED ICS 08/31/2023 [id number] / / [id number] Head Fem +0mm Ofst Tpr 36mm Hip Blx D V40 Strl - [id number] Implanted:Qty: 1 on 10/26/2018 by Anjel Mccrary MD at [facility] Right: Hip AGNES:ORTHOPED ICS 08/31/2023 [id number] / / [id number] Procedures Procedure Name Priority Date/Time Associated Diagnosis Comments XR LUMBAR SPINE AP AND LATERAL Routine 12/30/2024 1:40 PM EDT History of total right hip replacement XR HIP RIGHT AP LATERAL W AP PELVIS Routine 12/30/2024 1:38 PM EDT History of total right hip replacement MM MOBILE MAMMO DIGITAL SCREEN W CAD MARIANELA Routine 05/02/2013 9:00 AM EST Other screening mammogram from Last 3 Months or Most Recently Relevant to Health Maintenance Results * XR LUMBAR SPINE AP AND LATERAL (12/30/2024 1:40 PM EDT) Narrative Fermin Audit - 12/30/2024 1:41 PM EDT Please see physician's note from office encounter for x-ray imaging result us Castillo Morris PA-C [facility]NOSTIC [facility]ING [facility] Final Result * XR HIP RIGHT AP LATERAL W AP PELVIS (12/30/2024 1:38 PM EDT) Narrative Fermin Audit - 12/30/2024 1:38 PM EDT Please see physician's note from office encounter for x-ray imaging result us Castillo Morris PA-C IM DIAGNOSTIC IMAGING OR[facility] RABLES Final Result * MM MOBILE MAMMO DIGITAL SCREEN W CAD MARIANELA (05/02/2013 9:00 AM EST) Anatomical Region Laterality Modality Breast Mammography 05/03/2013 1:56 PM EST Impressions 05/03/2013 4:36 PM EST : Negative ([id number]) ~ RECOMMENDATION: Routine screening mammogram in 1 [...] most recent being 01-07-12 ~ IMPRESSION: Negative ([id number]) ~ RECOMMENDATION: Routine screening mammogram in 1 [...] was reviewed by a Radiologist and CAD. [facility] MAMMOGRAPHY ORDERABLES F inal Result from Last 3 Months or Most Recently Relevant to Health Maintenance Insurance [place] [address] [place] [address] [place] [address] [place] Advance Directives For more information, please contact: [phone] * Full Code (Latest Code Status on File) Date Activated Date Inactivated Comments 10/26/2018 2:25 PM 10/28/2018 4:09 PM * Full Code Date Activated Date Inactivated Comments 04/05/2015 10:25 PM 04/08/2015 7:16 PM Care Teams Museum Preparator Relationship Specialty Start Date End Date Santana Schneider MD [address] [place] [address] PCP - General Family Medicine 02/06/17
--- OUTSIDE RECORDS SUMMARY | 2025-01-05 09:32 | XMS_ITS | Clinical Summary ---
Author Organization [facility] Address [address] [place] [address] Phone Care Team Providers Care Dray Truck Driver Name Role Phone Unavailable Unavailable Conditions or Problems No information available. Medications No information available. Medications Administered No information available. Allergies, Adverse Reactions, Alerts No information available. Results No information available. Plan of Care No information available. Procedures No information available. Vital Signs No information available. Immunizations No information available. Advance Directives No information available.
--- OUTSIDE RECORDS SUMMARY | 2025-01-05 09:32 | XMS_ITS | Clinical Summary ---
Author Organization [facility] Address [address] [place] [address] Phone Care Team Providers Care English Horn Player Name Role Phone Brenda Floyd APRN Primary Care Physician [ ] Conditions or Problems Problem Name Problem Code Onset Date Status Entry Date Provider Comment Standard Description Annotate ABN UTERINE BLEEDING 626.8 (ICD-9-CM) Active Wendy Cruz MD Other disorders of menstruation and other abnormal bleeding from female genital tract ABDOMINAL PAIN 48067338 (SNOMED CT) Active Wendy Cruz MD Abdominal pain TELLERS SUPERVISOR EXAM 60196177 (SNOMED CT) Inactive Wendy Cruz MD Gynecologic examination Medications Medication Instructions Start Date Stop Date Generic Name NDC Provider PROVERA 10 MG TABS 1 po q day x 10 days MEDROXYPROGESTERONE ACETATE [id number] Brenda Floyd APRN IBUPROFEN 600 MG TABS one po q 8 prn IBUPROFEN [id number] Wendy Cruz MD Medications Administered No information available. Allergies, Adverse Reactions, Alerts Allergy Name Reaction Description Start Date Severity Statu s Provider TYLENOLWITH CODEINE Critical Active Wendy Cruz MD Results Date Name Value Unit Range Flag Description Office Visit: New ceiling insulation blower- Abnor mal periods -JAR rm 6 PREG TST URN negative beta HC G, urine, semiquantitative Plan of Care Type Date Detail Pending order Preg Test (Outsi de Lab) Pending order Pelvic Ultrasoun d Procedures Code Procedure Name Date Entry Date CPT-G8447 Encounter documented using a certified EH R CPT-G8447 Encounter documented using a certified EH R CPT-62466 Endometrial Biopsy 4 CPT-93973 Preg Test (Outside Lab) 2010 PU Pelvic [...]
--- OUTSIDE RECORDS SUMMARY | 2025-01-05 09:32 | XMS_ITS | Clinical Summary ---
Author Organization [facility] Address [address] [id number] Care Team Providers Care Floor Coverings Salesperson Name Role Phone Santana Schneider MD Primary Care Provider [phone] Family History Medical History Relation Name Comments [...] Date Last Done Comments [facility]-Depression Screening 1970 [facility]-/Child/Adol SDOH Screenings 1970 [facility]- SDOH Screenings 1988 [...] (2 - Td or Tdap) 12/18/2021 12/19/2011 [id number] Vaccine (2 - season) 2024 12/18/2020 [facility]-Influenza [...] patient's age to complete this topic Insurance [place]ICARE Member Subscriber Plan / Payer (Ef fective 2017-Present) Name:Christiane Spain Member ID:[id number] Relation to Subscriber:Self Name:Christiane Spain Subscriber ID:[id number] Payer ID:MEDICARE Group ID:Not on file Type:Medicare Address: [place] [phone] Care Teams Floor Coverings Salesperson Relationship Specialty Start Date End Date Santana Schneider MD [address] [place] [address] PCP - General 09/14/20
== END 2025-01-05 23:59 | disposition home or self-care (01) ==
LOC: RAD 09:30
PROVIDERS: PCP Family Medicine; Visit Provider Surgery
DX: K76.0 Fatty (change of) liver, not elsewhere classified (principal); K80.20 Calculus of gallbladder without cholecystitis without obstruction
CPT/HCPCS: 76705

== ENCOUNTER 2025-01-09 06:22 | Outpatient (CLI) | payer MEDICARE, MEDICAID, SELFPAY ==
--- OUTSIDE RECORDS SUMMARY | 2024-12-30 13:00 | XMS_ITS | Encounter Summary ---
Author Organization [facility] Address [address] [place] [address] Care Team Providers Care Assembler Wet Wash Name Role Phone Santana Schneider MD Primary Care Provider [phone] Reason for Referral * Physical Therapy (Routine) - Pending Review Specialty Diagnoses / Procedures Referred By Miguel Ángel haynes Referred To Contact Physical Therapy Diagnoses History of total right hip replacement Castillo Morris PA-C [address] [place] [address] Phone: tel: fax: Referral ID Status Reason Start Date Expiration Date V isits Requested Visits Authorized [id number] Pending Review 12/30/2024 12/30/2025 1 1 Question Answer Evaluate and Treat Yes Select as appropriate Evaluate and treat appropriately - Brusal Pain Modalities/Procedures As Indicated Therapeutic Exercise As Indicated Goals: Decrease pain and swelling, Increase function, Increase strength, Increase ROM Additional instructions: Teach HEP, Frequency and duration per therapist discretion Reason for Visit * Reason Comments Pain Encounter Details Date Type Department Care Team (Late st Contact Info) Description 12/30/2024 1:00 [place] [address] Castillo Morris PA-C [address] [place] [address] History of total right hip replacement (Primary Dx) Social History Tobacco Use Types Packs/Day Years Used Date Smoking Tobacco: Every Day Cigarettes 1 29.8 Started: 04/07/1995 Smokeless Tobacco: Never Alcohol Use Standard Drinks/Week Comments No 0 (1 standard drink = 0.6 oz pur e alcohol) Comments No Sex and Gender Information Value Date Recorded Sex Assigned at Not on file Legal Sex Female 6:56 PM EDT Gender Identity Not on file Sexual Orientation Not on file documented as of this encounter Ordered Prescriptions Prescription Sig Dispense Quantity Refills Last Filled Start Date End Date dexAMETHasone (DECADRON) 6 mg Oral TabletIndications: History of total right hip replacement Take 1 Tablet by mouth daily (with breakfast) for 7 days. 7 Tablet 12/30/2024 01/06/2025 documented in this encounter Plan of Treatment Upcoming Encounters Date Type Department Care Team (Late st Contact Info) Description 02/15/2025 10:45 AM EDT Office Visit [address] [address] Castillo Morris PA-C [address] [place] [address] Scheduled Referrals Name Type Priority Associated Diagnoses Orde r Schedule AMB REFERRAL TO PHYSICAL THERAPY Outpatient Referral Routine History of total right hip replacement Ordered: 12/30/2024 documented as of this encounter Results * XR LUMBAR SPINE AP AND LATERAL (12/30/2024 1:40 PM EDT) Narrative [facility] Christensen - 12/30/2024 1:41 PM EDT Please see physician's note from office encounter for x-ray imaging result Castillo Morris PA-C [facility] Final Result * XR HIP RIGHT AP LATERAL W AP PELVIS (12/30/2024 1:38 PM EDT) Narrative [facility] Christensen - 12/30/2024 1:38 PM EDT Please see physician's note from office encounter for x-ray imaging result us Castillo Morris PA-C [facility] Final Result documented in this encounter Visit Diagnoses Diagnosis History of total right hip replacement- Primary History of total right hip replacement History of total right hip replacement documented in this encounter Care Teams Assembler Wet Wash Relationship Specialty Start Date End Date Santana Schneider MD [address] [place] [id number] PCP - General Family Medicine 02/06/17 documented as of this encounter
--- OUTSIDE RECORDS SUMMARY | 2024-12-30 13:30 | XMS_ITS | Encounter Summary ---
Author Organization [facility] Address [address] [place] [address] Care Team Providers Care Marketing Project Lead Name Role Phone Santana Schneider MD Primary Care Provider [phone] Encounter Details Date Type Department Care Team (Latest Contact Info) Description 12/30/2024 1:30 PM [place] [address] Castillo Morris PA-C [address] [place] [address] History of total right hip replacement Social [...] Description 02/15/2025 10:45 [place] [address] Castillo Morris PA-C [address] [place] [address] documented as of this encounter Procedures Procedure [...] replacement documented in this encounter Care Teams Marketing Project Lead Relationship Specialty Start Date End Date Santana Schneider MD [address] [place] [address] PCP - General Family Medicine 02/06/17 documented as of this encounter
--- OUTSIDE RECORDS SUMMARY | 2024-12-30 13:45 | XMS_ITS | Encounter Summary ---
Author Organization [facility] Address [address] [place] [address] Care Team Providers Care Feed Weigher Name Role Phone Santana Schneider MD Primary Care Provider [phone] Encounter Details Date Type Department Care Team (Latest Contact Info) Description 12/30/2024 1:45 PM EDT [place] [address] Castillo Morris PA-C [address] [place] [address] History of total right hip replacement Social [...] Description 02/15/2025 10:45 AM [place] [address] Castillo Morris PA-C [address] [place] [address] documented as of this encounter Procedures Procedure [...] replacement documented in this encounter Care Teams Feed Weigher Relationship Specialty Start Date End Date Santana Schneider MD [address] [place] [address] PCP - General Family Medicine 02/06/17 documented as of this encounter
--- NOTE | 2025-01-09 | CA_ITS ---
APPROVED REPORT Exam: Pharmacologic Technologist: Gretchen Torres Ht: 5 ft 8 in Wt: 277 lbs BSA: 2.35 m2 HR: 59 bpm BP: 154/65 mmHg Medical History Medications: Albuterol, Bisoprolol Fumarate, Diazepam, Furosemide, Gabapentin, Levothyroxine, Losartan, Meloxicam, Omeprazole, Oxycodone-Acetaminophe, Simvastatin. Stress Test Details Test: Lexiscan Reason for pharmacologic stress test: physical limitation. HR Resting HR: 59 bpm Max Heart Rate (APMHR): 166.933918 bpm Max HR Achieved: 65 bpm Target HR (85% APMHR): 141.087290 bpm % of APMHR: 39.16 Recovery HR: 60 bpm BP Resting BP: 154.0/65.0 mmHg Max BP: 176.0/76.0 mmHg Recovery BP: 166.0/76.0 mmHg ECG Resting ECG: SR/PAC. Stress ECG Conclusion Symptoms: Mild dyspnea. Arrhythmias/Ectopy: PAC. ST-T Changes: less than 0.5mm upsloping ST Segment changes. Conclusion: Nondiagnostic ECG/Lexiscan. Electronically signed by : Jenni Lopez MD 01/09/2025 20:37:48
--- OUTSIDE RECORDS SUMMARY | 2025-01-09 06:25 | XMS_ITS | Clinical Summary ---
Author Organization [facility] Address [address] [id number] Care Team Providers Care Aerospace Project Engineer Name Role Phone Santana Schneider MD Primary Care Provider Family History Medical History Relation Name Comments [...] (2 - Td or Tdap) 12/18/2021 12/19/2011 [id number] Vaccine (2 - 2024- season) 2025 12/18/2020 [facility]-Influenza Vaccine (#1) 2025 [facility]-Hepatitis A [...] patient's age to complete this topic Insurance [place]ICARE Member Subscriber Plan / Payer (Ef fective 2017-Present) Name:Christiane Spain Member ID:[id number] Relation to Subscriber:Self Name:Christiane Spain Subscriber ID:[id number] Payer ID:MEDICARE Group ID:Not on file Type:Medicare Address: [place] [phone] Care Teams Aerospace Project Engineer Relationship Specialty Start Date End Date Santana Schneider MD [address] [place] [address] PCP - General 09/14/20
--- OUTSIDE RECORDS SUMMARY | 2025-01-09 06:25 | XMS_ITS | Clinical Summary ---
Author Organization [facility] Address [address] [place] [id number] Phone Care Team Providers Care Bootmaker Name Role Phone Unavailable Unavailable Conditions or Problems No information available. Medications No information available. Medications Administered No information available. Allergies, Adverse Reactions, Alerts No information available. Results No information available. Plan of Care No information available. Procedures No information available. Vital Signs No information available. Immunizations No information available. Advance Directives No information available.
--- OUTSIDE RECORDS SUMMARY | 2025-01-09 06:25 | XMS_ITS | Clinical Summary ---
Author Organization [facility] Address [address] [place] [address] Phone Care Team Providers Care Supervisor Gear Repair Name Role Phone Santana Schneider MD Primary Care Provider [phone] Allergies Active Allergy Reactions Criticality Noted Date [...] breakfast) for 7 days. 7 Tablet 12/30/2024 01/07/20 Active Problems Problem Noted Date Diagnosed Date [...] Description 12/30/2024 1:45 [place] [address] Castillo Morris PA-C History of total right hip replacement 12/30/2024 1:30 [place] [address] Castillo Morris PA-C History of total right hip replacement 12/30/2024 1:00 [place] [address] Castillo Morris PA-C History of total right hip replacement (Primary Dx) from Last 3 Months Surgical History Surgery Date Site/Laterality Comments APPENDECTOMY 1988 TUBAL LIGATION 1992 THYROID SURGERY removed HYSTERECTOMY DILATION AND CURETTAGE OF UTERUS x 2 SALPINGO-OOPHORECTOMY VENTRAL HERNIA REPAIR 04/05/2015 N/A OPEN VENTRAL HERNIA REPAIR WITH MESH BILATERAL COMPARTMENT RELEASE; Surgeon: Tequila Zepeda MD; Location: [facility] MAIN OR; Service: General Medical devices from [...] 1 29.8 Started: 04/07/1995 Smokeless Tobacco: Never Tobacco Cessation:Ready [...] Description 02/15/2025 10:45 AM EDT Office Visit [address] [address] Castillo Morris PA-C [address] [place] [address] Health Maintenance Due Date Last Done Comments [...] 12/18/2021 12/19/2011 COVID-19 Vaccine (2 - season) 2025 03/18/2023 Influenza Vaccine (#1) 2025 Meningococcal B Vaccine Aged Out No l onger eligible based on patient's age to complete this topic Medical Devices Implanted Type Area Agricultural Technician Device Identifier Shelf Expiration Date Model / Serial / Lot Mesh Soft 15cm X 15cm - [id number] Implanted:Qty: 1 on 04/05/2015 by Yousif Zepeda MD at [facility] N/A: Abdomen CR BARD:DAVOL 07/02/2019 [id number] / / [id number] Trident Ii Tritanium Clusterhole 52e - [id number] Implanted:Qty: 1 on 10/26/2018 by Anjel Mccrary MD at [facility] Right: Hip AGNES:ORTHOPED ICS 07/29/2023 702-04-52E / / [id number] Screw Trident Ii Hex Low Profile 6.5mm X 25mm - [id number] Implanted:Qty: 2 on 10/26/2018 by Anejl Mccrary MD at [facility] Right: Hip AGNES:ORTHOPED ICS 07/22/2023 [id number] / / [id number] Insert Trident 3 X 0 Degree 36mm - [id number] Implanted:Qty: 1 on 10/26/2018 by Anjel Mccrary MD at [facility] Right: Hip AGNES:ORTHOPED ICS 09/05/2023 623-00-36E / / [id number] Size 5 Accolade Ii 127 Deg - [id number] Implanted:Qty: 1 on 10/26/2018 by Anjel Mccrary MD at [facility] Right: Hip AGNES:ORTHOPED ICS 08/31/2023 [id number] / / [id number] Head Fem +0mm Ofst Tpr 36mm Hip Blx D V40 Strl - [id number] Implanted:Qty: 1 on 10/26/2018 by Anjel Mccrary MD at [facility] Right: Hip AGNES:ORTHOPED ICS 08/31/2023 6570-0-136 / / [id number] Procedures Procedure Name Priority Date/Time Associated Diagnosis [...] x-ray imaging result us Castillo Morris PA-C [facility] DIAGNOSTIC IMAGING ORDE RABAGNES Final Result * [...] Impressions 05/03/2013 4:36 PM EST : Negative ([id number]-2) ~ RECOMMENDATION: Routine screening mammogram in 1 [...] most recent being 01-07-12 ~ IMPRESSION: Negative ([id number]-[id number]-3) ~ RECOMMENDATION: Routine screening mammogram in 1 [...] reviewed by a Radiologist and CAD. Result [facility] MAMMOGRAPHY ORDERABLES F inal Result from Last 3 Months or Most Recently Relevant to Health Maintenance Insurance [place] [address] [place] [address] [place] [address] [place] Advance Directives For more information, please contact: [phone] * Full Code (Latest Code Status on File) Date Activated Date Inactivated Comments 10/26/2018 2:25 PM 10/28/2018 4:09 PM * Full Code Date Activated Date Inactivated Comments 04/05/2015 10:25 PM 04/08/2015 7:16 PM Care Teams Supervisor Gear Repair Relationship Specialty Start Date End Date Santana Schenider MD [address] [place] [address] PCP - General Family Medicine 02/06/17
--- OUTSIDE RECORDS SUMMARY | 2025-01-09 06:25 | XMS_ITS | Clinical Summary ---
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
--- NOTE | 2025-01-09 06:30 | NM_ITS ---
APPROVED REPORT Exam: Nuclear Stress Test Indication: htn, hyperlipiedemia, edema, c.p., sob Patient Location: Outpatient Stress Tech: Gretchen Ann ND Tech:MICHAEL May RT (R)(N)(M) Ht: 5 ft 8 in Wt: 277 lbs Bra Size: d HR: 59 bpm BP: 154/65 mmHg BSA: 2.35 m2 TID: 1.32 BMI: 42.1 History: htn, hyperlipiedemia, edema, c.p., sob Procedure: Patient received 0.4 mg of intravenous Adenosine, resting heart rate 59 bpm, resting blood pressure 154/65 mmHg, with Lexiscan maximum heart rate achieved was 65 bpm which is % of the maximum predicted heart rate and blood pressure was 176/76 mmHg. With Lexiscan, patient denied any complaint of chest pain. Cardiac Stress and Resting SPECT Images: Cardiac Stress and Resting SPECT images were obtained using technetium 99m Myoview 30.8 mCi stress and 10.69 mCi at rest. Resting and stress imaging in supine and prone positions demonstrate no evidence of fixed or reversible perfusion defects. There is increase in transient ischemic dilatation ratio (TID 1.32), which may be suggestive of possible multivessel disease or balanced ischemia. Gated imaging demonstrates normal global and regional LV systolic function. LVEF is calculated at 56%. Conclusion: No evidence of fixed or reversible perfusion defects. There is increase in transient ischemic dilatation ratio (TID 1.32), which may be suggestive of possible multivessel disease or balanced ischemia. Gated imaging demonstrates normal global and regional LV systolic function. LVEF is calculated at 56%. Electronically signed by : Jenni Lopez MD 01/09/2025 20:37:38
[2025-01-09] MEDS: SODIUM CHLORIDE 0.9% 10ML SYR (RAD ONLY) 10 ML IV ×2 (06:40→08:15)
[2025-01-09 08:00] VITALS: BP 154/65; PULSE 59; RESP 16
[2025-01-09] MEDS: ISOTOPE CHOLETECH;1 DOSE (UP TO 15 MCI) IV (09:35)
--- NOTE | 2025-01-09 11:00 | CA_ITS ---
APPROVED REPORT EXAM: Comprehensive 2D, Doppler, and color-flow Echocardiogram Small Engine Specialist: Maritza Calderon RVT Ht: 5 ft 8 in Wt: 277lbs BSA: 2.35 BP: 197/77 mmHg Indications: CHEST PAIN 2D Dimensions LA Volume 35.90 mL LA Volume Index 15.28 mL/m2 (M/F) 16-34 M-Mode Dimensions RVDd 2.37 cm (0.9-2.6) LA Diam 3.86 cm (1.9-4.0) LVDd 4.38 cm (3.5-5.7) LVDs 2.82 cm (3.5-5.7) IVSd 2.24 cm (0.6-1.1) PWd 0.76 cm (0.6-1.1) EF (Teich) 65.30% FS 35.60% EDV (Teich) 86.80 mL ESV (Teich) 30.10 mL LV Diastology E Decel Time 277 (160-240 msec) E/A Ratio 0.8 Aortic Valve KANG Index 1.15 cm2/m2 AoV Peak Bennett. 110.0 (50-130 cm/s) AO Peak GR. 4.80 mmHg AO Mean GR. 2.50 (<5 mmHg) AO VTI 24.8 (18-25 cm) KANG (VTI) 2.76 (2.5-4.5 cm2) Mitral Valve MV E Max Bennett. 71.0 (40-130 cm/s) MV A Velocity 87.0 (40-130 cm/s) E/A Ratio 0.82 MV PHT 81.0 ms Pulmonary Valve PV Peak Velocity 89.0 (50-150 cm/s) Left Ventricle The left ventricle is normal size. Left ventricular systolic function is normal. The left ventricular ejection fraction is within the normal range. There is increased left ventricular wall thickness. There is normal LV segmental wall motion. The left ventricular diastolic function is normal. LVEF is 55% Right Ventricle The right ventricle is mildly dilated. The right ventricular systolic function is normal. Atria The left atrium size is normal. The right atrium size is normal. There is no color Doppler evidence of interatrial shunt. Aortic Valve The aortic valve is mildly thickened. There is no hemodynamically significant aortic valvular stenosis. Mild aortic regurgitation is present. Mitral Valve The mitral valve is normal in structure. No evidence of mitral valve stenosis. Trace mitral regurgitation is present. Tricuspid Valve The tricuspid valve leaflets are thin and pliable. Trace tricuspid regurgitation. There is insufficient TR jet to estimate RVSP. Pulmonic Valve The pulmonary valve is grossly normal in structure. Trace pulmonic valve regurgitation is present. Great Vessels The aortic root is normal in size. IVC is normal in size and collapses >50% with inspiration. Pericardium There is no pericardial effusion. Other Information Study Quality: Technically Difficult Conclusion Technically difficult study. Normal biventricular systolic function. Mild RV dilation. Mild AI. Electronically signed by : Jenni Lopez MD 01/09/2025 21:08:47
== END 2025-01-09 23:59 | disposition home or self-care (01) ==
LOC: RAD 06:24
PROVIDERS: Visit Provider Nurse Practitioner
DX: I35.1 Nonrheumatic aortic (valve) insufficiency (principal); I11.9 Hypertensive heart disease without heart failure; I49.1 Atrial premature depolarization; I73.9 Peripheral vascular disease, unspecified; E78.5 Hyperlipidemia, unspecified; R94.39 Abnormal result of other cardiovascular function study
CPT/HCPCS: 78452; 93017; 93018; 93306; A9537; J2785

== ENCOUNTER 2025-01-27 09:31 | Outpatient (CLI) | payer MEDICARE, MEDICAID, SELFPAY ==
--- OUTSIDE RECORDS SUMMARY | 2024-12-30 13:00 | XMS_ITS | Encounter Summary ---
Author Organization [facility] Address [address] [place] [address] Care Team Providers Care Sugar Presser Name Role Phone Santana Schneider MD Primary Care Provider [phone] Reason for Referral * Physical Therapy (Routine) - Pending Review Specialty Diagnoses / Procedures Referred By Miguel Ángel haynes Referred To Contact Physical Therapy Diagnoses History of total right hip replacement Castillo Morris PA-C [address] [place] [address] Phone: tel: fax: Referral ID Status Reason Start Date Expiration Date V isits Requested Visits Authorized [id number] Pending Review 12/30/2024 12/30/2025 1 1 Question [...] Description 12/30/2024 1:00 [place] [address] Castillo Morris PA-C [address] [place] [address] History of total right hip replacement (Primary [...] Tablet 12/30/2024 01/06/2025 documented in this encounter Progress Notes * Castillo Morris PA-C - 12/30/2024 1:00 PM EDT Images from the original note were not included. [address] [phone] [place], [place] [phone] [place], [place] Christiane Spain 1970 Date of Visit: 12/30/2024 Chief Complaint: Chief Complaint Patient presents with Right Hip - Pain History: The patient is a 54 y.o. female who comes in today for repeat check of right hip. Previously known to our surgical team as underwent a right total hip replacement; surgical procedure performed on 10/26/2018. Developed lateral hip pain approximately 1 week prior. No specific injury or trauma. Denies radicular symptoms distally on the lower extremity. Notes difficulty with rotational activities such as getting out of bed. Physical Examination: Well-healed surgical incision of the right hip. No erythema, drainage or other signs or symptoms of infection. Allows for passive range of motion and. Discomfort at the end range of external rotation; positive MAURICIO. Negative ALVA. Maintained strength on Stinchfield testing. Moderate tenderness palpation over the trochanteric bursal region and. Negative straight leg raise. Negative clonus. Soft compartments. Sensate to touch. Palpable pulses. Neurovascular intact. Impression: Status post right total hip replacement Right hip pain, bursal type Plan: Reviewed plain radiographic films with patient in office. Stable positioning of hardware. Developed symptoms 1 week prior without any overt mechanism of injury nor trauma. Majority of her symptoms remain on the lateral aspect. We elected to treat this as a bursal type pain at today's visit. Short course of steroids; dexamethasone 6 mg daily x 7 days. Followed by physical therapy prescription for bursal type pain. Monitor progression over the next 6 to 8 weeks. Verbalized understanding agreeable to the plan. All questions and concerns answered. Imagin views of the lumbar spine demonstrate multilevel degenerative disc disease greatest at L3-4, L4-5 and L5-S1. Loss of lordotic curvature. Associated facet arthropathy. No bony lesions or acute fractures. 2 views of the right hip demonstrate appropriate alignment and fixation implant. No changes in the prosthesis. DME Summary No orders found for display The supervising/collaborating provider for the technical component of the x-rays is Dr. Mccrary. Please note that this professor computer science was created using voice recognition software. Any errors are unintentional, and may be due to voice recognition professor computer science. Cosigned by Anjel Mccrary MD at 01/20/2025 3:51 PM EDT documented in this encounter Plan of Treatment Upcoming Encounters Date Type Department Care Team (Late st Contact Info) Description 02/15/2025 10:45 [place] [address] Castillo Morris PA-C [address] [place] [address] Scheduled Referrals Name Type Priority Associated Diagnoses [...] for x-ray imaging result Castillo Morris PA-C [facility] Final Result * XR HIP RIGHT AP LATERAL W AP PELVIS (12/30/2024 1:38 PM EDT) Narrative [facility] Christ[facility] - 12/30/2024 1:38 PM EDT Please see physician's note from office encounter for x-ray imaging result us Castillo Morris PA-C [facility] Final Result documented in this encounter Visit Diagnoses Diagnosis History of total right hip replacement- Primary History of total right hip replacement History of total right hip replacement documented in this encounter Care Teams Sugar Presser Relationship Specialty Start Date End Date Santana Schneider MD [address] [place] [id number] PCP - General Family Medicine 02/06/17 documented as of this encounter
--- OUTSIDE RECORDS SUMMARY | 2024-12-30 13:30 | XMS_ITS | Encounter Summary ---
Author Organization [facility] Address [address] [place] [address] Care Team Providers Care Department Head College Or University Name Role Phone Santana Schneider MD Primary Care Provider [phone] Encounter Details Date Type Department Care Team (Latest Contact Info) Description 12/30/2024 1:30 PM EDT [place] [address] Castillo Morris PA-C [address] [place] [address] History of total right hip replacement Social History Tobacco Use Types Packs/Day Years [...] on file documented as of this encounter Plan of Treatment Upcoming Encounters Date Type Department Care Team (Late st Contact Info) Description 02/15/2025 10:45 AM EDT [place] [address] Castillo Morris PA-C [address] [place] [address] documented as of this encounter Procedures Procedure Name Priority Date/Time Associated Diagnosis Comments XR HIP RIGHT AP LATERAL W AP PELVIS Routine 12/30/2024 1:38 PM EDT History of total right hip replacement documented in this encounter Results * XR HIP RIGHT AP LATERAL W AP PELVIS (12/30/2024 1:38 PM EDT) Narrative Hamlet Christensen - 12/30/2024 1:38 PM EDT Please see physician's note from office encounter for x-ray imaging result us Castillo Morris PA-C [facility] [place] [place] Final Result documented in this encounter Visit Diagnoses Diagnosis History of total right hip replacement documented in this encounter Care Teams Department Head College Or University Relationship Specialty Start Date End Date Santana Schneider MD [address] [place] [address] PCP - General Family Medicine 02/06/17 documented as of this encounter
--- OUTSIDE RECORDS SUMMARY | 2024-12-30 13:45 | XMS_ITS | Encounter Summary ---
Author Organization [facility] Address [address] [place] [address] Care Team Providers Care Service Trainer Name Role Phone Santana Schneider MD Primary Care Provider [phone] Encounter Details Date Type Department Care Team (Latest Contact Info) Description 12/30/2024 1:45 [place] [address] Castillo Morris PA-C [address] [place] [address] History of total right hip replacement Social [...] Description 02/15/2025 10:45 [place] [address] Castillo Morris PA-C [address] [place] [address] documented as of this encounter Procedures Procedure Name Priority Date/Time Associated Diagnosis Comments XR LUMBAR SPINE AP AND LATERAL Routine 12/30/2024 1:40 PM EDT History of total right hip replacement documented in this encounter Results * XR LUMBAR SPINE AP AND LATERAL (12/30/2024 1:40 PM EDT) Narrative [facility] Christensen - 12/30/2024 1:41 PM EDT Please see physician's note from office encounter for x-ray imaging result Castillo Morris PA-C [facility] [place] [place] Final Result documented in this encounter Visit Diagnoses Diagnosis History of total right hip replacement documented in this encounter Care Teams Service Trainer Relationship Specialty Start Date End Date Santana Schneider MD [address] [place] [address] PCP - General Family Medicine 02/06/17 documented as of this encounter
--- OUTSIDE RECORDS SUMMARY | 2025-01-27 09:36 | XMS_ITS | Clinical Summary ---
Author Organization [employer] [facility] Address [address] [place] [address] Phone Care Team Providers Care Grades 1 Through 6 Teacher Name Role Phone Brenda Floyd APRN Primary Care Physician [ ] Conditions or Problems Problem Name Problem Code Onset Date Status Entry Date Provider Comment Standard Description Annotate ABN UTERINE BLEEDING 626.8 (ICD-9-CM) Active Wendy Cruz MD Other disorders of menstruation and other abnormal bleeding from female genital tract ABDOMINAL PAIN 81222205 (SNOMED CT) Active Wendy Cruz MD Abdominal pain 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
--- OUTSIDE RECORDS SUMMARY | 2025-01-27 09:37 | XMS_ITS | Clinical Summary ---
Author Organization [facility] Address [address] [place] [address] Phone Care Team Providers Care Studio Coordinator Name Role Phone Santana Schneider MD Primary Care Provider [phone] Allergies Active Allergy Reactions Criticality Noted Date [...] Description 12/30/2024 1:45 [place] [address] Castillo Morris PA-C History of total right hip replacement 12/30/2024 1:30 [place] [address] Castillo Morris PA-C History of total right hip replacement 12/30/2024 1:00 [place] [address] Castillo Morris PA-C History of total right hip replacement (Primary Dx) from Last 3 Months Surgical History Surgery Date Site/Laterality Comments APPENDECTOMY 1988 TUBAL LIGATION 1992 THYROID SURGERY removed HYSTERECTOMY DILATION AND CURETTAGE OF UTERUS x 2 SALPINGO-OOPHORECTOMY VENTRAL HERNIA REPAIR 04/05/2015 N/A OPEN VENTRAL HERNIA REPAIR WITH MESH BILATERAL COMPARTMENT RELEASE; Surgeon: Tequila Zepeda MD; Location: [facility] MAIN OR; Service: General Medical devices [...] Description 02/15/2025 10:45 AM EDT Office Visit [address] [address] Castillo Morris PA-C [address] [place] [address] Health Maintenance Due Date Last Done Comments [...] this topic Medical Devices Implanted Type Area Magnetic Tape Winder Device Identifier Shelf Expiration Date Model / Serial / Lot Mesh Soft 15cm X 15cm - [id number] Implanted:Qty: 1 on 04/05/2015 by Yousif Zepeda MD at [facility] N/A: Abdomen CR BARD:DAVOL 07/02/2019 [id number] / / [id number] Trident Ii Tritanium Clusterhole 52e - [id number] Implanted:Qty: 1 on 10/26/2018 by Anjel Mccrary MD at [facility] Right: Hip AGNES:ORTHOPED ICS 07/29/2023 702-04-52E / / [id number] Screw Trident Ii Hex Low Profile 6.5mm X 25mm - [id number] Implanted:Qty: 2 on 10/26/2018 by Anjel Mccrary MD at [facility] Right: Hip AGNES:ORTHOPED ICS 07/22/2023 [id number] / / [id number] Insert Trident 3 X 0 Degree 36mm - [id number] Implanted:Qty: 1 on 10/26/2018 by Anjel Mccrary MD at [facility] Right: Hip AGNES:ORTHOPED ICS 09/05/2023 623-00-36E / / [id number] Size 5 Accolade Ii 127 Deg - [id number] Implanted:Qty: 1 on 10/26/2018 by Anjel Mccrary MD at [facility] Right: Hip AGNES:ORTHOPED ICS 08/31/2023 [id number] / / [id number] Head Fem +0mm Ofst Tpr 36mm Hip Blx D V40 Strl - [id number] Implanted:Qty: 1 on 10/26/2018 by Anjel Mccrary MD at [facility] Right: Hip AGNES:ORTHOPED ICS 08/31/2023 6570-0-136 / / [id number] Procedures Procedure Name Priority Date/Time Associated Diagnosis [...] x-ray imaging result us Castillo Morris PA-C [facility] ORDE RABAGNES Final Result * [...] Impressions 05/03/2013 4:36 PM EST : Negative ([id number]-6) ~ RECOMMENDATION: Routine screening mammogram in 1 [...] most recent being 01-07-12 ~ IMPRESSION: Negative ([id number]-Qrfkflur-6) ~ RECOMMENDATION: Routine screening mammogram in 1 [...] reviewed by a Radiologist and CAD. Result [facility] MAMMOGRAPHY ORDERABLES F inal Result from Last 3 Months or Most Recently Relevant to Health Maintenance Insurance [place] [address] [place] [address] [place] [address] [place] Advance Directives For more information, please contact: [phone] * Full Code (Latest Code Status on File) Date Activated Date Inactivated Comments 10/26/2018 2:25 PM 10/28/2018 4:09 PM * Full Code Date Activated Date Inactivated Comments 04/05/2015 10:25 PM 04/08/2015 7:16 PM Care Teams Studio Coordinator Relationship Specialty Start Date End Date Santana Schneider MD [address] [address] PCP - General Family Medicine 02/06/17
--- OUTSIDE RECORDS SUMMARY | 2025-01-27 09:37 | XMS_ITS | Clinical Summary ---
Author Organization [facility] Address [address] [place] [address] Phone Care Team Providers Care Linseed Cake Trimmer Name Role Phone Unavailable Unavailable Conditions or Problems No information available. Medications No information available. Medications Administered No information available. Allergies, Adverse Reactions, Alerts No information available. Results No information available. Plan of Care No information available. Procedures No information available. Vital Signs No information available. Immunizations No information available. Advance Directives No information available.
--- OUTSIDE RECORDS SUMMARY | 2025-01-27 09:37 | XMS_ITS | Data Portability ---
Author Organization [facility] ADMIN Address [address] [place] [id number] Assessment No assessment recorded. Plan of Treatment Reminders Order Date Submit Date Provider Last Modified By Organization Details Last Modified Time Details Appointments None record ed. Lab None record ed. Referral None record ed. Procedures None record ed. Surgeries None record ed. Imaging None record ed. Medication Orders None record ed. Patient TargetsNo targets recorded. Patient InstructionsNo instructions recorded. Reason for Referral None Reported. Problems Name Problem SNOMED Code Status Onset Date Resolution Date Notes Provider Name and Address Organization Details Recorded Time Constipation 70194847 Active 2016 Negra sheppard, [facility] - [facility] - [facility] & [place] 4 10:28:06 Asthma 415948336 Active 2016 Negrazayda Dasilva null, [facility] - [facility] - [place] & [place] 4 10:28:06 Hypertensive disorder 41467831 Active 2016 Negra Dasilva null, [facility] - [facility] - [place] & [place] 4 10:28:06 Hypothyroidism 06438126 Active 2016 Negrazayda Dasilva null, [facility] - [facility] - [place] & [place] 4 10:28:06 Anxiety 58163622 Active 2016 Negrazayda Dasilva null, [facility] - [facility] - [place] & [place] 4 10:28:06 Chronic back pain 540452635 Active 2016 Negrazayda Dasilva null, [facility] - [facility] - [place] & [place] 4 10:28:06 Coronary arterioscleros is 87109862 Active 2016 Negrazayda Dasilva valarie, [facility] - [facility] - [place] & [place] 4 10:28:07 Radicular pain 88122639 Active 2016 Negra Dasilva null, [place] - [facility] - [place] & [place] 4 10:28:06 Abdominal pain 53524625 Active 2016 Negra Dasilva [place] - [facility] - [place] & [place] 4 10:28:06 Stitch abscess 236848011 Active 2016 Negra Dasilva [place] - [facility] - [place] & [place] 4 10:28:06 Pain of elbow region 96680908 Active 2016 Negra Dasilva [place] - [facility] - [place] & [place] 4 10:28:07 Ventral incisional hernia 022913900 Active 2016 Negra Dasilva null[place] - [facility] - [place] & [place] 4 10:28:06 Sinusitis 41309693 Active 2017 Negra Dasilva null[place] - [facility] - [place] & [place] 4 10:28:06 Neurogenic pain 551893708 Active 2017 Negra Dasilva [place] - [facility] - [place] & [place] 4 10:28:06 Chronic constipation 414327775 Active 2018 Negra Dasilva [place] - [facility] - [place] & [place] 4 10:28:06 Acute dermatitis 69432986 Active 2019 Negra Dasilva null[place] - [facility] - [place] & [place] 4 10:28:06 Cellulitis 693553364 Active 2020 Negra Dasil[place] - [facility] - [place] & [place] 4 10:28:06 Acute pyelonephritis 01448237 Active 2020 Negra Dasilva null[place] - [facility] - [place] & [place] 4 10:28:06 Premature atrial contraction 490446084 Active 2022 Negra Dasilva null[place] - [facility] - [place] & [place] 4 10:28:06 Acute sinusitis 60741380 Active 2022 Negra Dasilva null[place] - [facility] - [place] & [place] 4 10:28:06 Hyperlipidemia 77346631 Active 2023 Negra sheppard, [facility] - [place] & [place] 4 10:28:07 Calcaneal spur 38517386 Active 2023 Negra sheppard, [facility] - [facility] - [place] & [place] 4 10:28:07 Hernia of anterior abdominal wall 257058112 Active 2023 Negra sheppard, [facility] - [facility] - [place] & [place] 4 10:28:06 Problem Notes None recorded. Procedures Surgical History Date Name Laterality Status Provider Name and Address Organization Details Recorded Time Appendectomy completed Mary MIRAMONTES - [place] & [place] 03/17/2024 15:17:54 thyroidectomy completed Mary MIRAMONTES - [place] & [place] 03/17/2024 15:18:03 hernia repair completed Mary MIRAMONTES - [place] & [place] 03/17/2024 15:18:11 Total Hysterectomy completed Mary Holt - [place] & [place] 03/17/2024 15:18:23 Imaging Results None recorded. Procedure Notes None recorded. Medical Equipment None Reported. Allergies Allergen ID Allergen Name Allergen Category Reaction Reaction Severity Criticality Documentation Date Start Date Code Code System Note Provider Name and Address Organization Details Recorded Time 528928 Flagyl medicatio n hives moderate Not available 03/17/2024 78634 6 RxNorm Mary sheppard, [facility] [place] & [place] 4 15:15:02 767738 Macrobid medicatio n anaphylax is severe Not available 03/17/2024 82202 1 RxNorm Mary sheppard, [facility] [place] & [place] 4 15:15:07 777234 Tylenol with Codeine medicatio n nausea moderate Not available 03/17/2024 60035 6 RxNorm Mary sheppard, [facility] - [facility] - [place] & [place] 4 15:15:15 Medications Name Sig Start Date Stop Date Status Note LastModified by Organization Details LastModified Time furosemide 40 mg tablet TAKE 1 TABLET BY MOUTH ONCE DAILY NEEDED FOR EDEMA (SWELLING ) active Not Available Not Available No t Available fluconazole 100 mg tablet TAKE ONE TABLET BY MOUTH ONCE DAILY DIRECTED FOR THREE DAYS 03/01 completed Not Available Not Available Not Available levothyroxi ne 175 mcg tablet TAKE 1 TABLET BY MOUTH EVERY DAY active Not Available Not Available No t Available promethazin e-DM 6.25 mg-15 mg/5 mL oral syrup 10/10 completed Not Available Not Available Not Available nystatin 100,000 unit/mL oral suspension TAKE 1 TEASPOONF UL (5 ML) BY MOUTH FOUR TIMES DAILY FOR 14 DAYS 07/24 completed Not Available Not Available Not Available prednisone 10 mg tablet TAKE 6 TABLETS BY MOUTH ON DAY 1 DIRECTED AND DECREASE BY 1 TAB EACH DAY FOR A TOTAL OF 6 DAYS 03/17 completed Not Available Not Available Not Available gabapentin 600 mg tablet TAKE 1 TABLET BY MOUTH THREE TIMES A DAY DNF 211545 active Not Available Not Available No t Available ketoconazol e 2 % shampoo SHAMPOO LIBERALLY DIRECTED TO WASH SCALP 3 X WEEKLY, LEAVE ON X 5 MINS, THEN RINSE 03/21 completed Not Available Not Available Not Available atorvastati n 10 mg tablet 01/07 completed Not Available Not Available Not Available azithromyci n 250 mg tablet TAKE 2 TABLETS (500 MG) BY ORAL ROUTE ONCE DAILY FOR 1 DAY THEN 1 TABLET (250 MG) BY ORAL ROUTE ONCE DAILY FOR 4 DAYS 07/07 completed Not Available Not Available Not Available hydrocodone 5 mg-acetamin ophen 325 mg tablet Take 1 tablet as needed by oral route as directed for 14 days. 04/23 completed Not Available Not Available Not Available Celestone Soluspan 6 mg/mL suspension for injection Take 9 mg by injection route. 02/24 completed Not Available Not Available Not Available meloxicam 15 mg tablet TAKE 1 TABLET BY MOUTH EVERY DAY active Not Available Not Available No t Available prednisone 5 mg tablet TAKE 6 TABLETS ON DAY 1,THEN 5 TABS ON DAY 2,THEN 4 TABS ON DAY 3, 3 TABS ON DAY 4,THEN 2 TABS ON DAY 5 AND 1 TAB ON DAY 6. *TAKE WITH FOOD* 07/07 completed Not Available Not Available Not Available Mobic 7.5 mg tablet Take 1 tablet every day by oral route. 03/21 completed Not Available Not Available Not Available promethazin e 6.25 mg-codeine 10 mg/5 mL syrup one teaspoon qid as needed for cough 10/09 completed Not Available Not Available Not Available fluocinonid e 0.05 % topical ointment APPLY LIBERALLY TO SKIN TWICE A DAY 03/21 completed Not Available Not Available Not Available ciprofloxac in 250 mg tablet Take 1 tablet twice a day by oral route. 03/22 completed Not Available Not Available Not Available sulfamethox azole 800 mg-trimetho prim 160 mg tablet TAKE ONE (1) TABLET TWICE A DAY BY ORAL ROUTE DIRECTED. 12/18 completed Not Available Not Available Not Available aspirin 81 mg tablet,yesenia yed release Take 1 tablet every day by oral route. 11/10 completed Not Available Not Available Not Available triamcinolo ne acetonide 0.1 % topical cream APPLY TOPICALLY TO AFFECTED AREA TWICE DAILY NEEDED active Not Available Not Available No t Available Depo-Medrol 80 mg/mL suspension for injection Take 80 mg by injection route. 07/16 completed Not Available Not Available Not Available bisoprolol fumarate 5 mg tablet TAKE 1 TABLET BY MOUTH EVERY DAY active Not Available Not Available No t Available prednisone 10 mg tablets in a dose pack Take as directed 02/20 completed Not Available Not Available Not Available Tessalon Perles 100 mg capsule Take 1 capsule 3 times a day by oral route as needed. 07/07 completed Not Available Not Available Not Available ceftriaxone 1 gram solution for injection Take 1 g by injection route. 07/07 completed Not Available Not Available Not Available oxycodone-a cetaminophe n 10 mg-325 mg tablet TAKE 1 TABLET BY MOUTH THREE TIMES A DAY active Not Available Not Available No t Available tamsulosin 0.4 mg capsule TAKE ONE CAPSULE BY MOUTH EVERY DAY 02/20 completed Not Available Not Available Not Available gabapentin 800 mg tablet TAKE 1 TABLET BY MOUTH THREE TIMES A DAY 11/08 completed Not Available Not Available Not Available hydrocodone 7.5 mg-acetamin ophen 325 mg tablet 11/10 completed Not Available Not Available Not Available cephalexin 500 mg capsule TAKE ONE (1) CAPSULE TWICE A DAY BY ORAL ROUTE. 02/20 completed Not Available Not Available Not Available simvastatin 20 mg tablet TAKE 1 TABLET BY MOUTH EVERY DAY active Not Available Not Available No t Available clotrimazol e-betametha sone 1 %-0.05 % topical cream APPLY TO THE AFFECTED AND SURROUNDI NG AREAS OF SKIN BY TOPICAL ROUTE 2 TIMES PER DAY 03/21 completed Not Available Not Available Not Available lisinopril 10 mg tablet TAKE 1 TABLET BY MOUTH EVERY DAY FOR BLOOD PRESSURE active Not Available Not Available No t Available promethazin e 25 mg tablet TAKE 1 TABLET BY MOUTH TWICE A DAY NEEDED 03/17 completed Not Available Not Available Not Available levothyroxi ne 150 mcg tablet TAKE 1 TABLET ORALLY DAILY FOR THYORID 09/17 completed Not Available Not Available Not Available hydrochloro thiazide 12.5 mg capsule Take 1 capsule every day by oral route. 10/10 completed Not Available Not Available Not Available omeprazole 20 mg capsule,del ayed release Take 1 capsule every day by oral route. active Not Available Not Available No t Available diclofenac sodium 75 mg tablet,yesenia yed release Take 1 tablet twice a day by oral route. 01/14 completed Not Available Not Available Not Available hydroxyzine HCl 25 mg tablet TAKE ONE (1) TABLET THREE (3) TIMES A DAY BY ORAL ROUTE NEEDED. 03/21 completed Not Available Not Available Not Available ceftriaxone 500 mg solution for injection Take 500 mg by injection route. 03/06 completed Not Available Not Available Not Available halobetasol propionate 0.05 % topical cream 09/18 completed Not Available Not Available Not Available lisinopril 5 mg tablet TAKE 1 TABLET BY MOUTH EVERY DAY FOR BLOOD PRESSURE 12/17 completed Not Available Not Available Not Available hydrochloro thiazide 25 mg tablet 10/10 completed Not Available Not Available Not Available furosemide 20 mg tablet TAKE ONE (1) TABLET EVERY DAY BY ORAL ROUTE NEEDED. 08/02 completed Not Available Not Available Not Available clobetasol 0.05 % topical ointment APPLY TO AFFECTED AREAS TWICE DAILY FOR TWO WEEKS THEN TAKE A WEEK BREAK. REPEAT NEEDED active Not Available Not Available No t Available diazepam 10 mg tablet TAKE ONE (1) TABLET BY MOUTH THREE TIMES DAILY NEEDED active Not Available Not Available No t Available prednisone 5 mg tablets in a dose pack TAKE DIRECTED 02/20 completed Not Available Not Available Not Available fluocinonid e 0.05 % topical solution APPLY DIRECTED TO SKIN APPLY 10-15 DROPS TO SCALP UP TO TWICE A DAY 03/21 completed Not Available Not Available Not Available oxycodone-a cetaminophe n 7.5 mg-325 mg tablet 12/08 completed Not Available Not Available Not Available methylpredn isolone 4 mg tablets in a dose pack 10/24 completed Not Available Not Available Not Available bromphenira mine-pseudo ephedrine-D M 2 mg-30 mg-10 mg/5 mL oral syrup TAKE ONE TEASPOON FOUR TIMES A DAY NEEDED FOR COUGH 03/26 completed Not Available Not Available Not Available clobetasol 0.05 % scalp solution PLEASE SEE ATTACHED FOR DETAILED DIRECTION S active Not Available Not Available No t Available cefdinir 300 mg capsule TAKE ONE CAPSULE BY MOUTH TWICE DAILY -- FINISH ALL MEDICINE -- 03/01 completed Not Available Not Available Not Available doxycycline hyclate 100 mg tablet TAKE ONE (1) TABLET TWICE A DAY BY ORAL ROUTE. 03/19 completed Not Available Not Available Not Available dicyclomine 10 mg capsule Take 1 capsule 3 times a day by oral route as needed. 03/21 completed Not Available Not Available Not Available phentermine 37.5 mg capsule Take 1 capsule twice a day by oral route. 10/10 completed Not Available Not Available Not Available amoxicillin 875 mg-potassiu m clavulanate 125 mg tablet TAKE 1 TABLET BY MOUTH EVERY 12 HOURS 11/08 completed Not Available Not Available Not Available Ventolin HFA 90 mcg/actuati on aerosol inhaler INHALE 2 PUFFS BY MOUTH EVERY 6 HOURS NEEDED FOR SHORTNESS OF BREATH OR WHEEZING 03/21 completed Not Available Not Available Not Available oxycodone 5 mg tablet 01/07 completed Not Available Not Available Not Available clobetasol 0.05 % lotion 01/07 completed Not Available Not Available Not Available oxycodone 10 mg tablet 09/16 completed Not Available Not Available Not Available diclofenac 1 % topical gel 11/08 completed Not Available Not Available Not Available Linzess 145 mcg capsule TAKE 1 CAPSULE BY MOUTH EVERY DAY NEEDED FOR 15 DAYS. active Not Available Not Available No t Available Otezla Starter 10 mg (4)-20 mg (4)-30 mg(47) tablets in a dose pack active Not Available Not Available Not Available triamcinolo ne 0.1 % topical ointment and dimethicone 5 % topical cream apply prn for skin irritatio n 11/10 completed Not Available Not Available Not Available Vitals Date Recorded Body height Body mass index (BMI) Body weight Heart rate Oxygen saturation Oxygen saturation in Arterial blood by Pulse oximetry Body temperature Systolic And Diastolic Provider Name and Address Organization Details Last Updated DateTime 4 175.26 cm 40.3 kg/m2 387532 g 63 /min 92 % 92 % 97.8 [degF] 157/68 mm[Hg] Negra Dasilva [facility] & [place] 4 10:36:20 Social History Question Answer Notes LastModified by [employer] Details LastModified Time Tobacco Smoking Status Current Every Day Smoker Mary sheppard [facility] & [place] 03/17/2024 15:17:48 What Is Your Level Of Caffeine Consumption? Moderate Information not available 03/17/2024 How Many Years Have You Smoked Tobacco? 30 Information not available 03/17/2024 Sex: Unknown Functional Status Question Answer Note LastModified by [employer] Details LastModified Time Do you use any illicit or recreational drugs? No Information not available 03/17/2024 Do you or have you ever used any other forms of tobacco or nicotine? No Information not available 03/17/2024 What is your level of alcohol consumption? None Information not available 03/17/2024 Mental Status None recorded. Family History Relationship Description Onset Age of this Age Resolved Age Notes LastModified by Organization Details LastModified Time Sister Hypertensive disorder Not available 2023 15:16:53 Medical History Condition Response Anxiety Disorder Y Coronary Artery Disease Y Arthritis Y Hypertension Y Hypothyroidism Y High Cholesterol Y Gynecological HistoryNo gynecological history recorded. Obstetrics History GPAL:G 0 P 0 0 0 0 Immunizations Vaccine Type Date Status Note Provider Nam e and Address Organization Details Recorded Time COVID-19 vaccine, vector-nr, rS-Ad26, PF, 0.5 mL 12/18/2020 completed Negra Brown null, [place] - [facility] - [place] & [place] 03/21/2024 10:28:07 Tdap 12/19/2011 completed Negra Dasilva null, [place] - [facility] - [place] & [place] 03/21/2024 10:28:07 Hep B, unspecified formulation 01/25/2013 completed Negra sheppard, [place] - [facility] - [place] & [place] 03/21/2024 10:28:07 Hep A, unspecified formulation 01/25/2013 completed Negra sheppard, [place] - [facility] - [place] & [place] 03/21/2024 10:28:07 Past Encounters Encounter ID Performer Location Encounter Start Date Encounter Closed Date Diagnosis/Indication Diagnosis SNOMED-CT Code Diagnosis ICD10 Code Diagnosis IMO Codes Diagnosis Note [id number] MD JOSIE Martínez General Surgery [address] [place] [phone] 03/21/2024 10:08:05 03/21/2024 10:45:05 Gastroesophageal reflux disease 357302766 K21.9 The patient's symptoms has resolved with omeprazole . I can not appreciate any hernia on her physical examinatio n today. We will observatio n. Health Concerns Section Related Observation LastModified by Organization Detai ls LastModified Time None Recorded Concern Status LastModified by Organization Details LastModified Time None Recorded Advance Directives Directive None Recorded Payers Insurance Date Sequence Insurance Name Policy Number Policy Espinosa Covered Member ID Espinosa Member ID Guarantor Name 03/18/2024 1 [place] Christiane Spain [id number] Christiane Spain 04/23/2024 2 [place] [employer] [place] FFS/TRADITIO NAL Christiane Spain [id number] Christiane [place] Notes Date Note Type Note Provider Name and Address Organization Details Recorded Time 03/21/2024 text/html Chirstiane is a 53-year-old woman who recently experience burning in her upper abdomen. She denies any nausea, vomiting or change in bowel habits. She was treated with omeprazole with resolution of the burning. She was told that she had a recurrence of an umbilical hernia. She has had no radiographic studies. Varun Gonzalez MD [address] [place] [address],[address], [place], [address], [facility] - [facility] - [place] & [place] 03/21/2024 10:51:29 OBGyn Episode No OBEpisode recorded.
--- OUTSIDE RECORDS SUMMARY | 2025-01-27 09:37 | XMS_ITS | Clinical Summary ---
Author Organization [facility] Address [address] [id number] Care Team Providers Care Building Equipment Operator Name Role Phone Santana Schneider MD Primary Care Provider [phone] Family History Medical History Relation Name Comments [...] (2 - Td or Tdap) 12/18/2021 12/19/2011 [id number] Vaccine (2 - 2024- season) 2025 12/18/2020 [...] patient's age to complete this topic Insurance [place] Subscriber Plan / Payer (Ef fective 2017-Present) Name:Christiane Spain Member ID:[id number] Relation to Subscriber:Self Name:Christiane Spain Subscriber ID:[id number] Payer ID:MEDICARE Group ID:Not on file Type:Medicare Address: [place] [phone] Care Teams Building Equipment Operator Relationship Specialty Start Date End Date Santana Schneider MD [address] [place] [address] PCP - General 09/14/20
[2025-01-27 10:03] LABS: Hematocrit 51.1 % (37.0-47.0); Hemoglobin 15.9 g/dL (12.2-16.2); Immature Granulocytes % 0.3 %; Mean Corpuscular HGB Conc 31.1 g/dL (31.8-35.4); Mean Corpuscular Hemoglobin 29.9 pg (27.0-31.2); Mean Corpuscular Volume 96.1 fl (81-99); Nucleated Red Blood Cells % 0 %; Platelet Count 225 K/mm3 (142-424); Red Blood Count 5.32 M/mm3 (4.20-5.40); Red Cell Distribution Width-SD 46.4 fL; White Blood Count 7.7 K/mm3 (4.8-10.8)
[2025-01-27 10:17] LABS: Albumin Level 3.9 g/dl (3.5-5.0); Chloride 103 mmol/L (98-107); Potassium 3.8 mmoL/L (3.5-5.1); Sodium 141 mmol/L (136-145)
[2025-01-27 10:19] LABS: Blood Urea Nitrogen 11 mg/dl (7-17); Creatinine,Serum 0.60 mg/dl (0.52-1.04); Estimated Glomerular Filt Rate 104 ml/min (>60); GFR (African American) 126 ML/MIN (>60)
[2025-01-27 10:20] LABS: Alanine Aminotransferase 12 U/L (12-78); Albumin/Globulin Ratio 1.3 (1.1-1.8); Alkaline Phosphatase 59 U/L (38-126); Anion Gap 10.8 mEq/L (5-15); Aspartate Amino Transferase 33 U/L (14-36); Bilirubin,Total 0.6 mg/dl (0.2-1.3); Calcium 8.7 mg/dl (8.4-10.2); Carbon Dioxide 31 mmol/L (22.0-30.0); Globulin 2.9 g/dL (1.3-3.2); Glucose 122 mg/dl (74-100); Total Protein,Serum 6.8 g/dl (6.3-8.2)
== END 2025-01-27 23:59 | disposition home or self-care (01) ==
LOC: PREOP 09:32
PROVIDERS: PCP Family Medicine; Visit Provider Surgery
DX: Z01.812 Encounter for preprocedural laboratory examination (principal)
CPT/HCPCS: 80053; 85025

== ENCOUNTER 2025-01-30 09:01 | Outpatient (CLI) | payer MEDICARE, MEDICAID, SELFPAY ==
--- OUTSIDE RECORDS SUMMARY | 2024-12-30 13:00 | XMS_ITS | Encounter Summary ---
Author Organization [facility] Address [address] [place] [address] Care Team Providers Care Claims Manager Name Role Phone Santana Schneider MD Primary Care Provider [phone] Reason for Referral * Physical Therapy (Routine) - Pending Review Specialty Diagnoses / Procedures Referred By Miguel Ángel haynes Referred To Contact Physical Therapy Diagnoses History of total right hip replacement Castillo Morris PA-C [address] [place] [address] Phone: tel: fax: Referral ID Status Reason Start Date Expiration Date V isits Requested Visits Authorized [id number] Pending Review 12/30/2024 12/30/2025 1 1 Question [...] Description 12/30/2024 1:00 [place] [address] Castillo Morris PA-C [address] [place] [address] History of total right hip replacement (Primary [...] from the original note were not included. [address] [phone]) [place], [place] [phone] [place], [place] Christiane [place] 1970 Date of Visit: [...] is Dr. Mccrary. Please note that this special needs nanny was created using voice recognition software. Any errors are unintentional, and may be due to voice recognition special needs nanny. Cosigned by Anjel Mccrary MD at 01/20/2025 3:51 PM EDT documented in this encounter Plan of Treatment Upcoming Encounters Date Type Department Care Team (Late st Contact Info) Description 02/15/2025 10:45 [place] [address] Castillo Morris PA-C [address] [place] [address] Scheduled Referrals Name Type Priority Associated Diagnoses [...] replacement documented in this encounter Care Teams Claims Manager Relationship Specialty Start Date End Date Santana Schneider MD [address] [place] [id number] PCP - General Family Medicine 02/06/17 documented as of this encounter
--- OUTSIDE RECORDS SUMMARY | 2024-12-30 13:30 | XMS_ITS | Encounter Summary ---
Author Organization [facility] Address [address] [place] [address] Care Team Providers Care Contact Center Associate Name Role Phone Santana Schneider MD Primary Care Provider [phone] Encounter Details Date Type Department Care Team (Latest Contact Info) Description 12/30/2024 1:30 PM [place] [address] Castillo Morris PA-C [address] [place] [address] History of total right hip replacement Social [...] Description 02/15/2025 10:45 [place] [address] Castillo Morirs PA-C [address] [place] [address] documented as of this encounter Procedures Procedure [...] replacement documented in this encounter Care Teams Contact Center Associate Relationship Specialty Start Date End Date Santana Schneider MD [address] [place] [address] PCP - General Family Medicine 02/06/17 documented as of this encounter
--- OUTSIDE RECORDS SUMMARY | 2024-12-30 13:45 | XMS_ITS | Encounter Summary ---
Author Organization [facility] Address [address] [place] [address] Care Team Providers Care Night Warehouse Selector Name Role Phone Santana Schneider MD Primary Care Provider [phone] Encounter Details Date Type Department Care Team (Latest Contact Info) Description 12/30/2024 1:45 PM EDT [place] [address] Castillo Morris PA-C [address] [place] [address] History of total right hip replacement Social [...] Description 02/15/2025 10:45 [place] [address] Castillo Morris PA-C [address] [place] [address] documented as of this encounter Procedures Procedure [...] replacement documented in this encounter Care Teams Night Warehouse Selector Relationship Specialty Start Date End Date Santana Schneider MD [address] [place] [address] PCP - General Family Medicine 02/06/17 documented as of this encounter
--- OUTSIDE RECORDS SUMMARY | 2025-01-30 09:08 | XMS_ITS | Clinical Summary ---
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 Allergies, Adverse Reactions, Alerts Allergy Name Reaction Description Start Date Severity Statu s Provider TYLENOLWITH CODEINE Critical Active Wendy Cruz MD Results Date Name Value Unit Range Flag Description Office Visit: New certified home health aide- Abnor mal periods -JAR rm 6 PREG TST URN negative beta HC G, urine, semiquantitative Plan of Care Type Date Detail Pending order Preg Test (Outsi de Lab) Pending order Pelvic Ultrasoun d Procedures Code Procedure Name Date Entry Date CPT-G8447 Encounter documented using a certified EH R CPT-G8447 Encounter documented using a certified EH R CPT-26995 Endometrial Biopsy 4 CPT-31307 Preg Test (Outside Lab) 2010 PU Pelvic [...]
--- OUTSIDE RECORDS SUMMARY | 2025-01-30 09:08 | XMS_ITS | Clinical Summary ---
Author Organization [facility] Address [address] [place] [id number] Phone Care Team Providers Care Horse Farm Manager Name Role Phone Unavailable Unavailable Conditions or Problems No information available. Medications No information available. Medications Administered No information available. Allergies, Adverse Reactions, Alerts No information available. Results No information available. Plan of Care No information available. Procedures No information available. Vital Signs No information available. Immunizations No information available. Advance Directives No information available.
--- OUTSIDE RECORDS SUMMARY | 2025-01-30 09:10 | XMS_ITS | Data Portability ---
Author Organization [facility] - [facility] ADMIN Address [address] [place] [id number] Assessment No assessment recorded. Plan of Treatment [...] and Address Organization Details Recorded Time Constipation 38907301 Active 2016 Negra sheppard, SANDRA - [facility] - [facility] & [place] 4 10:28:06 Asthma 608409510 Active 2016 Negrazayda Dasilva null, SANDRA - [facility] - [place] & [place] 4 10:28:06 Hypertensive disorder 11269967 Active 2016 Negra Dasilva null, SANDRA - [facility] - [place] & [place] 4 10:28:06 Hypothyroidism 55073354 Active 2016 Negrazayda Dasilva null, SANDRA - [facility] - [place] & [place] 4 10:28:06 Anxiety 18894518 Active 2016 Negrazayda Dasilva null, [facility]DR[facility] - [facility] - [place] & [place] 4 10:28:06 Chronic back pain 967810952 Active 2016 Negrazayda Dasilva null, [place] - [facility] - [place] & [place] 4 10:28:06 Coronary arterioscleros is 70147572 Active 2016 Negra Dasilva val[place], [place] - [facility] - [place] & [place] 4 10:28:07 Radicular pain 75708898 Active 2016 Negra Dasilav null, [place] - [facility] - [place] & [place] 4 10:28:06 Abdominal pain 36944188 Active 2016 Negra Dasilva null, [place] - [facility] - [place] & [place] 4 10:28:06 Stitch abscess 027244184 Active 2016 Negra Dasilva [place], [place] - [facility] - [place] & [place] 4 10:28:06 Pain of elbow region 42906193 Active 2016 Negra Dasilva [place] - [facility] - [place] & [place] 4 10:28:07 Ventral incisional hernia 547857606 Active 2016 Negra Dasilva null, [place] - [facility] - [place] & [place] 4 10:28:06 Sinusitis 49890480 Active 2017 Negra Dasilva null[place] - [facility] - [place] & [place] 4 10:28:06 Neurogenic pain 453220997 Active 2017 Negra Dasilva null[place] - [facility] - [place] & [place] 4 10:28:06 Chronic constipation 231764307 Active 2018 Negra Dasilva [place] - [facility] - [place] & [place] 4 10:28:06 Acute dermatitis 70671826 Active 2019 Negra Dasilva null[place] - [facility] - [place] & [place] 4 10:28:06 Cellulitis 961628029 Active 2020 Negra Dasilva null[place] - [facility] - [place] & [place] 4 10:28:06 Acute pyelonephritis 07458816 Active 2020 Negra Dasilva null[place] - [facility] - [place] & [place] 4 10:28:06 Premature atrial contraction 154126665 Active 2022 Negra Dasilva null, [place] - [facility] - [place] & [place] 4 10:28:06 Acute sinusitis 66810108 Active 2022 Negra Dasilva null, [place] - [facility] - [place] & [place] 4 10:28:06 Hyperlipidemia 08109119 Active 2023 Negra sheppard, SANDRA Tanner [facility] - [place] & [place] 4 10:28:07 Calcaneal spur 98702623 Active 2023 Negra sheppard, SANDRA - [facility] - [place] & [place] 4 10:28:07 Hernia of anterior abdominal wall 084065977 Active 2023 Negra sheppard, SANDRA - [facility] - [place] & [place] 4 10:28:06 Problem Notes None recorded. Procedures Surgical History Date Name Laterality Status Provider Name and Address Organization Details Recorded Time Appendectomy completed Mary MIRAMONTES - [place] & [place] 03/17/2024 15:17:54 thyroidectomy completed Mary MIRAMONTES - [place] & [place] 03/17/2024 15:18:03 hernia repair completed Mary MIRAMONTES - [place] & [place] 03/17/2024 15:18:11 Total Hysterectomy completed Mary Holt - [place] & [place] 03/17/2024 15:18:23 Imaging Results None recorded. Procedure Notes None recorded. Medical Equipment None Reported. Allergies Allergen ID Allergen Name Allergen Category Reaction Reaction Severity Criticality Documentation Date Start Date Code Code System Note Provider Name and Address Organization Details Recorded Time 639843 Flagyl medicatio n hives moderate Not available 03/17/2024 63932 6 RxNorm Mary sheppard, SANDRA Tanner [facility] [place] & [place] 4 15:15:02 740244 Macrobid medicatio n anaphylax is severe Not available 03/17/2024 71493 1 RxNorm Mary sheppard, SANDRA Tanner [facility] [place] & [place] 4 15:15:07 229237 Tylenol with Codeine medicatio n nausea moderate Not available 03/17/2024 33754 6 RxNorm Mary sheppard, SANDRA - [facility] - [place] & [place] 4 15:15:15 Medications Name Sig Start Date [...] BY MOUTH THREE TIMES A DAY DNF 643481 active Not Available Not Available No t [...] Updated DateTime 4 175.26 cm 40.3 kg/m2 359656 g 63 /min 92 % 92 % 97.8 [degF] 157/68 mm[Hg] Negra Dasilva [facility] & [place] 4 10:36:20 Social History Question Answer Notes LastModified by [employer] Details LastModified Time Tobacco Smoking Status Current Every Day Smoker Mary sheppard [facility] & [place] 03/17/2024 15:17:48 What Is Your Level Of Caffeine Consumption? Moderate Information not available 03/17/2024 How Many Years Have You Smoked Tobacco? 30 Information not available 03/17/2024 Sex: Unknown Functional Status Question Answer Note LastModified by [employer] Details LastModified Time Do you use any [...] Negra Brown null, [place] - [facility] - [place] & [place] 03/21/2024 10:28:07 Tdap 12/19/2011 completed Negra Dasilva null[place] - [facility] - [place] & [place] 03/21/2024 10:28:07 Hep B, unspecified formulation 01/25/2013 completed Negra sheppard[place] - [facility] - [place] & [place] 03/21/2024 10:28:07 Hep A, unspecified formulation 01/25/2013 completed Negra [place]ppard[place] - [facility] - [place] & [place] 03/21/2024 10:28:07 Past Encounters Encounter ID Performer Location Encounter Start Date Encounter Closed Date Diagnosis/Indication Diagnosis SNOMED-CT Code Diagnosis ICD10 Code Diagnosis IMO Codes Diagnosis Note [id number] MD JOSIE Martínez General Surgery [address] [place] [id number] 03/21/2024 10:08:05 03/21/2024 10:45:05 Gastroesophageal reflux disease 639588871 K21.9 The patient's symptoms has resolved with [...] Espinosa Member ID Guarantor Name 03/18/2024 1 MEDICARE-[place] (MEDICARE) Christiane Spain [id number] Christiane Spain 04/23/2024 2 [place] [facility] CHOICES - FFS/TRADITIO NAL Christiane Spain [id number] Christiane [place] Notes Date Note Type Note Provider Name and Address Organization Details Recorded Time 03/21/2024 text/html Christiane is a 53-year-old woman who recently experience burning in her upper abdomen. She denies any nausea, vomiting or change in bowel habits. She was treated with omeprazole with resolution of the burning. She was told that she had a recurrence of an umbilical hernia. She has had no radiographic studies. Varun Gonzalez MD [address] [place] [address],[address], [place], [address], [facility] - [facility] - [place] & [place] 03/21/2024 10:51:29 OBGyn Episode No OBEpisode recorded.
--- OUTSIDE RECORDS SUMMARY | 2025-01-30 09:10 | XMS_ITS | Clinical Summary ---
Author Organization [facility] Address [address] [place] [address] Phone Care Team Providers Care Compact Assembler Name Role Phone Santana Schneider MD Primary Care Provider [phone] Allergies Active Allergy Reactions Criticality Noted Date [...] Description 12/30/2024 1:45 [place] [address] Castillo Morris PA-C History of total right hip replacement 12/30/2024 1:30 [place] [address] Castillo Morris PA-C History of total right hip replacement 12/30/2024 1:00 [place] [address] Castillo Morris PA-C History of total right hip replacement (Primary Dx) from Last 3 Months Surgical History Surgery Date Site/Laterality Comments APPENDECTOMY 1988 TUBAL LIGATION 1992 THYROID SURGERY removed HYSTERECTOMY DILATION AND CURETTAGE OF UTERUS x 2 SALPINGO-OOPHORECTOMY VENTRAL HERNIA REPAIR 04/05/2015 N/A OPEN VENTRAL HERNIA REPAIR WITH MESH BILATERAL COMPARTMENT RELEASE; Surgeon: Tequila Zepeda MD; Location: [facility] MAIN OR; Service: General Medical devices [...] Description 02/15/2025 10:45 [place] [address] Castillo Morris PA-C [address] [place] [address] Health Maintenance Due Date Last Done Comments [...] this topic Medical Devices Implanted Type Area Head Start Director Device Identifier Shelf Expiration Date Model / Serial / Lot Mesh Soft 15cm X 15cm - [id number] Implanted:Qty: 1 on 04/05/2015 by Yousif Zepeda MD at [facility] N/A: Abdomen CR BARD:DAVOL 07/02/2019 [id number] / / [id number] Trident Ii Tritanium Clusterhole 52e - [id number] Implanted:Qty: 1 on 10/26/2018 by Anjel Mccrary MD at [facility] Right: Hip AGNES:ORTHOPED ICS 07/29/2023 702-04-52E / / [id number] Screw Trident Ii Hex Low Profile 6.5mm X 25mm - [id number] Implanted:Qty: 2 on 10/26/2018 by Anjel Mccrary MD at [facility] Right: Hip AGNES:ORTHOPED ICS 07/22/2023 [id number] / / [id number] Insert Trident 3 X 0 Degree 36mm - [id number] Implanted:Qty: 1 on 10/26/2018 by Anjel Mccrary MD at [facility] Right: Hip AGNES:ORTHOPED ICS 09/05/2023 623-00-36E / / [id number] Size 5 Accolade Ii 127 Deg - [id number] Implanted:Qty: 1 on 10/26/2018 by Anjel Mccrary MD at [facility] Right: Hip AGNES:ORTHOPED ICS 08/31/2023 [id number] / / [id number] Head Fem +0mm Ofst Tpr 36mm Hip Blx D V40 Strl - [id number] Implanted:Qty: 1 on 10/26/2018 by Anjel Mccrary MD at [facility] Right: Hip AGNES:ORTHOPED ICS 08/31/2023 6570-0-136 / / [id number] Procedures Procedure Name Priority Date/Time Associated Diagnosis [...] x-ray imaging result us Castillo Morris PA-C [facility] ORDE RABAGNES Final Result * [...] Impressions 05/03/2013 4:36 PM EST : Negative ([id number]) ~ RECOMMENDATION: Routine screening mammogram in 1 [...] most recent being 01-07-12 ~ IMPRESSION: Negative (IAQ-[id number]) ~ RECOMMENDATION: Routine screening mammogram in 1 [...] was reviewed by a Radiologist and CAD. [facility] [place] IMG MAMMOGRAPHY ORDERABLES F inal Result from Last 3 Months or Most Recently Relevant to Health Maintenance Insurance [place] [address] [place] [address] [place] [address] [place] Member Subscriber Plan / Payer (Ef fective 2018-Present) Name:Christiane Spain Relation to Subscriber:Self Name:Christiane Spain Payer ID:Not on file Group ID:Not on file Type:Not on file Address: [address] [place] [id number] Advance Directives For more information, please contact: [phone] * Full Code (Latest Code Status on File) Date Activated Date Inactivated Comments 10/26/2018 2:25 PM 10/28/2018 4:09 PM * Full Code Date Activated Date Inactivated Comments 04/05/2015 10:25 PM 04/08/2015 7:16 PM Care Teams Compact Assembler Relationship Specialty Start Date End Date Santana Schneider MD [address] [place] [address] PCP - General Family Medicine 02/06/17
--- OUTSIDE RECORDS SUMMARY | 2025-01-30 09:10 | XMS_ITS | Clinical Summary ---
Author Organization [facility] Address [address] [id number] Care Team Providers Care Indoor Landscape Architect Name Role Phone Santana Schneider MD Primary Care Provider [phone] Family History Medical History Relation Name Comments [...] (2 - Td or Tdap) 12/18/2021 12/19/2011 [id number] Vaccine (2 - 2024- season) 2025 12/18/2020 [...] patient's age to complete this topic Insurance [place] Member Subscriber Plan / Payer (Ef fective 2017-Present) Name:Christiane Spain Member ID:[id number] Relation to Subscriber:Self Name:Christiane Spain Subscriber ID:[id number] Payer ID:MEDICARE Group ID:Not on file Type:Medicare Address: [place] [id number] Care Teams Indoor Landscape Architect Relationship Specialty Start Date End Date Santana Schneider MD [address] [place] [address] PCP - General 09/14/20
[2025-01-30 09:18] VITALS: BMI 40.8
[2025-01-30 09:29] VITALS: BP 159/78; PULSE 53; RESP 18; O2SAT 95
[2025-01-30 09:40] VITALS: BP 149/72; PULSE 60; RESP 18; O2SAT 92
[2025-01-30] MEDS: NITROGLYCERIN 0.4MG SL TABLET SL (09:40)
[2025-01-30 09:45] VITALS: BP 135/50; PULSE 58; RESP 18; O2SAT 90
[2025-01-30] MEDS: 0.9 % SODIUM CHLORIDE 50 ML VIAL 40 ML IV (09:53)
[2025-01-30] MEDS: SODIUM CHLORIDE 0.9% 10ML SYR (RAD ONLY) 10 ML IV (09:53)
[2025-01-30] MEDS: IOPAMIDOL-370 (76%);100ML BOTTLE 93 ML IV (09:53)
[2025-01-30 09:55] VITALS: BP 155/86; PULSE 58; RESP 18; O2SAT 92
--- NOTE | 2025-01-30 10:00 | CT_ITS ---
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 A noncontrast coronary calcium scan was performed. A CT attenuation threshold of 130 Hounsfield units (HU) was used for the detection of calcium in contiguous voxels of 1 sq mm in area to be counted as individual lesions. Bolus tracking in the ascending aorta with a threshold of 180 HU was performed. Immediately afterwards, ECG synchronized cardiac CT was then performed from the cardiac base to apex using retrospective gating with ECG tube current modulation. A total of 85 mL of Isovue 370 mg/mL contrast medium was administered at 5 mL/sec followed by a saline flush using a biphasic injection protocol. A tube voltage of 120 KVp was used. The patient received the following medications prior to the cardiac CT. 0.8 mg of sublingual nitroglycerin The average heart rate at the time of acquisition was 64 bpm and regular. Image Reconstruction Transaxial images were reconstructed at 0.67 mm slide thickness. Data was reviewed interactively on an advanced workstation capable of 2 and 3-dimensional displays in all conventional reconstruction formats, including multiplanar reformations, maximum intensity projections, curved multiplanar reformations, and volume rendered reconstructions. When applicable, selected routine images describing the relevant coronary anatomy and pathology were saved and sent to PACS. Complications None Technical Quality Overall image quality was good. Coronary artery opacification was adequate. Total DLP (Dose-Length Product) is 2148.8 mGy-cm. The reported value represents the total of one or more individual components during the CT acquisition of this date and at this time, and as such, the same value may appear in more than one CT report depending on the interpreting/reporting physicians. COMPARISON None FINDINGS CT Coronary Calcium Scoring LMA (Left Main Artery) = 0 LAD (Left Anterior Descending) = 29 LCX (Left Coronary Circumflex) = 0 RCA (Right Coronary Artery) = 0 Total Calcium Score = 29 using the AJ-130 method. The observed calcium score of 29 is at 89th percentile for subjects of the same age, sex, and race/ethnicity. The interpretation of the calcium heart score is based on the following continuum*: 0 = no calcified plaque detected (risk of coronary artery disease is very low ??? less than 5%) 1-10 = calcium detected in extremely minimal levels (risk of coronary diseases is still low ??? less than 10%) 11-100 = mild levels of plaque detected with certainty (mild or minimal narrowing of heart arteries is likely) 101-400 = definite,at least moderate levels of plaque detected (relatively high risk of a heart attack within 3-5 years) >401-999 = extensive levels of plaque detected (high risk of heart attack, high levels of vascular disease are present, high likelihood of at least one significant coronary narrowing) *The calcium heart score quantifies the burden of coronary calcification/plaque in the coronary arteries. The calcium heart score is not able to evaluate the presence or burden of non-calcified (i.e. soft) plaque. There is mild calcification of the aortic valve present. Coronary CT Angiography The coronary arterial system is right dominant. Quantitative Stenosis Grading: Left Main (LM): The left main originates normally from the left sinus of Valsalva. The LM bifurcates into the left anterior descending artery and left circumflex artery. The LM is patent with no evidence of atherosclerosis. Left Anterior Descending (LAD) and Diagonal Branches: The LAD gives off 2 diagonal branch(es). there is mixed calcified/noncalcified plaque in the proximal LAD segment, with up to 25-49% luminal stenosis. There is no evidence of LAD-myocardial bridge. Left Circumflex (LCX) and Obtuse Marginals (OM): The LCX gives off 1 Obtuse Marginal (OM) branch(es). The LCX and its branches are patent with no evidence of atherosclerosis. Right Coronary Artery (RCA): The RCA originates normally from the right sinus of Valsalva. The RCA gives off a posterior descending artery (PDA) and posterolateral (PL) branches. The RCA and its branches are patent with no evidence of atherosclerosis. Non-Coronary Cardiac Findings: Analysis of the left ventricular (LV) structure and function was performed after 3-D reconstruction of the LV from axial images, with user-corrected automatic contouring for assessment of LV volumes and user-defined reconstruction from oblique planes for measurement of 3-D cardiac structure and function. -The left ventricle systolic function is normal. -There is no left atrial appendage filling defect. Two right pulmonary veins and two left pulmonary veins drain normally into the left atrium. -No pericardial thickening or calcification. -Central and branch pulmonary arteries in the aokhq-jo-kifl are unremarkable. -Thoracic aorta within the visualized thoracic aortic-branches in the oogpi-hv-fnsl is unremarkable. Extracardiac Structures No significant extra-cardiac findings. Note, however, that this study is focused on the cardiac findings. IMPRESSION - Presence of coronary calcification with an Agatston score = 29 using the AJ-130 method. -The observed calcium score of 29 is at 89th percentile for subjects of the same age, sex, and race/ethnicity. - Mild, nonobstructive atherosclerotic coronary disease of the mid LAD segment, with no evidence of significant flow-limiting atherosclerosis of the coronary arteries. -CAD-RADS 2. Management recommendations per ACC/AHA guidelines*, as clinically appropriate. *Recommendations: CAD RADS 0: Reassurance. Consider non-atherosclerotic causes of chest pain. CAD RADS 1: Consider non-atherosclerotic causes of chest pain. Consider preventive therapy and risk factor modification. CAD RADS 2: Consider non-atherosclerotic causes of chest pain. Consider preventive therapy and risk factor modification, particularly for patients with nonobstructive plaque in multiple segments. CAD RADS 3: Consider further functional testing. Consider symptom-guided anti-ischemic and preventive pharmacotherapy as well as risk factor modification per published guideline statements. CAD RADS 4A: Consider further functional testing or invasive coronary angiography with revascularization per published guideline statements. Consider symptom-guided anti-ischemic and preventive pharmacotherapy as well as risk factor modification per published guideline statements. CAD RADS 4B: Invasive coronary angiography recommended with revascularization per published guideline statements. Consider symptom-guided anti-ischemic and preventive pharmacotherapy as well as risk factor modification per published guideline statements. CAD RADS 5: Consider invasive angiography and/or viability assessment with revascularization per published guideline statements. Consider symptom-guided anti-ischemic and preventive pharmacotherapy as well as risk factor modification per published guideline statements. CRITICAL RESULT None COMMUNICATION Per this written report The coronary and cardiac findings of this CCTA were reviewed, reported, and signed by Rick Lopez MD (Public Affairs Specialist) Conclusion Electronically signed by : Jenni Lopez MD 02/06/2025 23:07:29
== END 2025-01-30 23:59 | disposition home or self-care (01) ==
PROVIDERS: PCP Family Medicine; Visit Provider Nurse Practitioner
DX: I25.10 Atherosclerotic heart disease of native coronary artery without angina pectoris (principal); R93.1 Abnormal findings on diagnostic imaging of heart and coronary circulation; I10 Essential (primary) hypertension
CPT/HCPCS: 75574; Q9967

== ENCOUNTER 2025-02-13 09:15 | Day surgery (SDC) | payer MEDICARE, MEDICAID, SELFPAY ==
[2025-01-27 10:08] VITALS: BMI 39.7
[2025-02-13] VITALS (22 sets, daily range): BP systolic 119–163; BP diastolic 57–91; PULSE 59–88; RESP 15–26; TEMP 32–36.9; O2SAT 85–97; BMI 39.7
[2025-02-13] MEDS: LACTATED RINGERS 1000ML 1,000 ML 25 ML IV (09:30)
--- NOTE | 2025-02-13 09:34 | EXP.GEN.HP ---
HPI HPI HPI: Patient presents for planned cholecystectomy. Patient is a 54-year-old smoker from [place] with history of sleep apnea, COPD, chronic arterial occlusive disease, hypothyroidism, hypertension, hyperlipidemia, reported thoracic aorta aneurysm, coronary artery disease with previous stents. She was referred by the emergency department for gallstones after being seen on and seen in the office initially on 12/29/24. She presented to the emergency department with 2-day history of abdominal pain, chest pain, and shortness of air. She underwent very thorough evaluation. It should be noted, that during her evaluation in the emergency department she had fallen asleep and had some desaturation. Apparently patient does have occasional home oxygen use as needed. Her CT angiogram of the chest revealed ascending aortic aneurysm of 4.[address] scan of the abdomen and pelvis revealed increased soft tissue density in the midline anterior abdominal wall contains the sutures may be due to prior surgery. Sludge balls or gallstones in the gallbladder. Prior abdominal surgeries include appendectomy, total hysterectomy. Apparently she has also had a couple of incisional hernia repairs done at outside facilities including [place] and [facility]. After my initial consultation on 12/29/2024 I had her undergo gallbladder ultrasound. She was found to have fatty liver with a large gallstone present in the gallbladder but no evidence of any gallbladder wall thickening and no evidence of any biliary ductal dilatation with common duct measuring 6 mm. She had seen cardiology and had a stress thallium on 01/09/2025 which reveals no evidence of any reversible or fixed perfusion defects with ejection fraction calculated at 56%. I did obtain the records from her previous hernia surgery and she underwent open ventral hernia repair with placement of onlay mesh and bilateral component separation on 04/05/2015. She states that she has had food intolerance with postprandial nausea. Patient strongly wished to pursue cholecystectomy. . [facility] Disclaimer: The information contained in this section may have been updated after the patient was seen, as this information can be updated by other users. Medical History Wheezing Abnormal findings on diagnostic imaging of heart and coronary circulation SOB (shortness of breath) Chest pain Hypothyroidism Fatigue COPD (chronic obstructive pulmonary disease) Abnormal PFT Encounter for screening for malignant neoplasm of lung in current smoker with 30 pack year history or greater Smoking greater than 30 pack years Dyspnea on exertion Tobacco abuse disorder Tobacco abuse counseling History of sleep apnea History of COPD PAD (peripheral artery disease) Pre-op evaluation Surgical History History of appendectomy History of total hysterectomy History of total hip replacement H/O thyroidectomy Family History Other Asthma Hypertension Kidney disease Thyroid disorder Social History (Updated 02/13/25 @ 09:46 by Marisol Mendiola RN) Smoking Status: Current every day smoker tobacco type: cigarettes packs per day: 1 alcohol intake: never substance use type: denies use current occupational status: disabled Travel in the last 8 weeks?: None household members: spouse and children housing: house caffeine: Yes Other Medical History Have you received the Flu Vaccine for this season: No Have you received the Pneumonia Vaccine: No Meds Home Medications and Allergies Home Medications ?Medication ?Instructions ?Recorded ?Confirmed ?Type diazepam 10 mg tablet 10 mg PO BID Anxiety 08/19/17 02/13/25 History oxycodone-acetaminophen 10 mg-325 1 tab PO Q6HP PRN PAIN 02/06/20 02/13/25 History mg tablet gabapentin 600 mg tablet 600 mg PO 0900,1200 Pain 10/31/20 02/13/25 History furosemide 40 mg tablet 40 mg PO DAILY PRN edema #30 tabs 11/27/22 02/13/25 Rx simvastatin 20 mg tablet 20 mg PO DAILY 06/03/23 02/13/25 History levothyroxine 175 mcg tablet 175 mcg PO DAILY THYROID #90 tabs 06/02/24 02/13/25 Rx omeprazole 20 mg capsule,delayed 20 mg PO DAILY 06/02/24 02/13/25 History release bisoprolol fumarate 5 mg tablet See Rx Instructions .Route 06/29/24 02/13/25 Rx .COMPLEX #90 tabs albuterol sulfate 90 mcg/actuation 2 inh inhalation Q6H PRN shortness 01/17/25 02/13/25 Rx aerosol inhaler of breath or wheezing 90 days #8.5 grams lisinopril 20 mg tablet 20 mg PO DAILY 01/30/25 02/13/25 History New Prescriptions to Start Prescriptions: Allergies Allergy/AdvReac Type Severity Reaction Status Date / Time nitrofurantoin (From Allergy Severe S-DIFF. Verified 01/27/25 09:41 MACROBID) BREATHING metronidazole Allergy Intermediate swelling Verified 01/27/25 09:41 in throat codeine (CODEINE) Allergy Unknown Nausea Verified 01/27/25 09:41 losartan AdvReac Nausea Verified 01/30/25 09:28 Exam Constitutional Constitutional: no acute distress *Routine HEENT Exam Head: Present normocephalic Eye: Present EOMI and PERRL ENT: Present mucous membranes moist *Routine Neck Exam Neck: Present supple; Absent lymphadenopathy *Routine Respiratory Exam Respiratory: Present CTA bilaterally *Routine Cardiovascular Exam Cardiovascular: Present RRR *Routine Abdominal Exam Abdominal: Present soft and surgical scars; Absent tenderness *Routine Rectal Exam Rectal:: deferred *Routine Genitalia Exam Genitalia:: deferred *Routine Extremities Exam Extremities: Absent cyanosis, clubbing or edema *Routine Skin Exam Skin: Present warm; Absent rash *Routine Neurological Exam Neurological: Present alert and oriented X3 Assessment and Plan *Assessment and plan (1) Gallstones: Status: Acute Category: Medical Code(s): K80.20 - Calculus of gallbladder without cholecystitis without obstruction Plan Patient would like to pursue cholecystectomy. Risks and benefits and expected outcome explained. She consents. Likely will need alternate abdominal entry due to extensive lower abdominal surgery.
[2025-02-13] MEDS: LIDOCAINE 1% 20ML MDV 20 ML (10:27)
--- NOTE | 2025-02-13 11:50 | EXP.OP.NOTE ---
Date of procedure: 02/13/25 Pre-op Diagnosis:: Symptomatic gallstones Post-op Diagnosis:: Same Procedure performed:: Laparoscopic cholecystectomy Surgeon:: Manny Edgar MD COMPUTER TYPESETTER KEYLINER:: Santana Montanez Anesthesia: GETEvgeny Estimated blood loss (mL): 40 Clinical Note:: Patient presents for planned cholecystectomy. Patient is a 54-year-old smoker from [place] with history of sleep apnea, COPD, chronic arterial occlusive disease, hypothyroidism, hypertension, hyperlipidemia, reported thoracic aorta aneurysm, coronary artery disease with previous stents. She was referred by the emergency department for gallstones after being seen on and seen in the office initially on 12/29/24. She presented to the emergency department with 2-day history of abdominal pain, chest pain, and shortness of air. She underwent very thorough evaluation. It should be noted, that during her evaluation in the emergency department she had fallen asleep and had some desaturation. Apparently patient does have occasional home oxygen use as needed. Her CT angiogram of the chest revealed ascending aortic aneurysm of 4.[address] scan of the abdomen and pelvis revealed increased soft tissue density in the midline anterior abdominal wall contains the sutures may be due to prior surgery. Sludge balls or gallstones in the gallbladder. Prior abdominal surgeries include appendectomy, total hysterectomy. Apparently she has also had a couple of incisional hernia repairs done at outside facilities including [facility] and [facility]. After my initial consultation on 12/29/2024 I had her undergo gallbladder ultrasound. She was found to have fatty liver with a large gallstone present in the gallbladder but no evidence of any gallbladder wall thickening and no evidence of any biliary ductal dilatation with common duct measuring 6 mm. She had seen cardiology and had a stress thallium on 01/09/2025 which reveals no evidence of any reversible or fixed perfusion defects with ejection fraction calculated at 56%. I did obtain the records from her previous hernia surgery and she underwent open ventral hernia repair with placement of onlay mesh and bilateral component separation on 04/05/2015. She states that she has had food intolerance with postprandial nausea. Patient strongly wished to pursue cholecystectomy. Operative findings:: She had fatty infiltration of the liver. She had some relatively extensive omental adhesions to the anterior abdominal wall in the lower abdomen. She had a distended gallbladder with a moderately large stone. There were a few omental adhesions to the gallbladder. . Operative note:: Consent was obtained patient was taken the operating room. She was given preoperative intravenous antibiotics. In the operating room she was placed in a supine position. General anesthesia was induced via endotracheal tube. Abdomen was prepped and draped in the standard surgical fashion. Through a small left subcostal incision 5 mm optical trocar was inserted under laparoscopic visualization. CO2 pneumoperitoneum was achieved to 15 mmHg. Laparoscopic surveillance was carried out and she did have some omental adhesions in the lower abdomen. Therefore 11 mm trocar was inserted in the epigastrium under laparoscopic visualization. Using ultrasonic harmonic cathy omental adhesions were taken down partially to allow for placement of a 5 mm trocar in the immediate supraumbilical location. Patient was then positioned in reverse Trendelenburg left side down. A couple of 5 mm trocars were inserted in the right upper abdomen. Liver was elevated and gallbladder was grasped retracted anteriorly and superiorly over the dome of the liver. There were some omental adhesions to the gallbladder mostly at the neck. These were taken down carefully using blunt dissection. Infundibulum of the gallbladder was retracted anterior laterally. Careful meticulous dissection was carried out the neck of the gallbladder bluntly incising the visceral peritoneum. The cystic duct and cystic artery were identified and isolated. Cystic duct was multiply clipped and sharply divided. Cystic artery was carefully coagulated with ultrasonic harmonic cathy and divided. There was some oozing of bile from near the neck of the gallbladder and a Hemoclip was placed. Gallbladder was dissected free from the liver in a retrograde fashion using ultrasonic harmonic cathy. Gallbladder was placed within an Endo Catch retrieval device and removed from the abdominal cavity via the epigastric trocar site which required some extension of the fascial incision and the skin for delivery. She was noted to have a moderately large stone. Gallbladder fossa was inspected for hemostasis which was assured. Irrigation and suctioning was carried out. Fascia at the epigastric site was closed laparoscopically under visualization using the Allan-Pastor laparoscopic fascial closure device utilizing 0 Ethibond suture. All trocars were then removed as CO2 pneumoperitoneum was evacuated. Additional local anesthetic was infiltrated. Skin incisions were closed with 4-0 Monocryl in a subcuticular fashion. Several incisions were reinforced with closure using 5-0 plain fast absorbing gut. Steri-Strips and dressings were applied. . Condition: stable Disposition: PACU Complications:: None immediately apparent
--- NOTE | 2025-02-13 12:24 | P.PNANES_ITS ---
[facility] Disclaimer: The information contained in this section may have been updated after the patient was seen, as this information can be updated by other users. Medical History Wheezing Abnormal findings on diagnostic imaging of heart and coronary circulation SOB (shortness of breath) Chest pain Hypothyroidism Fatigue COPD (chronic obstructive pulmonary disease) Abnormal PFT Encounter for screening for malignant neoplasm of lung in current smoker with 30 pack year history or greater Smoking greater than 30 pack years Dyspnea on exertion Tobacco abuse disorder Tobacco abuse counseling History of sleep apnea History of COPD PAD (peripheral artery disease) Pre-op evaluation Surgical History History of appendectomy History of total hysterectomy History of total hip replacement H/O thyroidectomy Family History Other Asthma Hypertension Kidney disease Thyroid disorder Social History (Updated 02/13/25 @ 09:46 by Marisol Mendiola RN) Smoking Status: Current every day smoker tobacco type: cigarettes packs per day: 1 alcohol intake: never substance use type: denies use current occupational status: disabled Travel in the last 8 weeks?: None household members: spouse and children housing: house caffeine: Yes Have you lived/traveled outside [place] in past 30 days?: No Contact w/someone who lives/traveled outside US past 30 days?: No Exposure to someone with infectious disease in past 14 days?: No Do you have a fever (greater than 100.4 F or 38 C)?: No Have you tested positive for COVID-19?: No Exposed to someone with COVID-19 in past 14 days?: No Do you have a sore throat?: No Do you have a cough?: No Do you have any weakness?: No Are you experiencing any nausea/vomitting?: Yes Do you have any diarrhea?: No Are you experiencing any unusual bleeding?: No Do you have any muscle aches/pain?: No Do you have any abdominal pain?: No Are you experiencing loss of taste or smell?: No [facility] Anesthesia Checklist Patient Identification Patient Identification: Arm Band and Family Structural Data Admitted From: Home Planned Operative Procedure/s: Lap Keli Consent for Planned Operative Procedure(s) Verified: Yes Verified Documents: Surgical Consent, History and Physical and Cardiac Clearance NPO Status Verified Time NPO: 00:00 Additional verifications Patient : No Anesthesia Reactions: No Hx Blood Transfusions: No Blood Transfusion Reaction: No Cephalosporin Allergy: No Previous Colonoscopy: Yes Airway Assessment Mallampati Score:: Class III C-Spine Mobility Assessed: Yes TMJ Mobility Assessed: Yes Dentition: Edentulous Neurological Assessment Level of Consciousness: Awake, Alert, Appropriate and Follows Commands Hx Seizures: No Numbness or tingling in extremities: No Anesthesia Plan Anesthesia Risk discussed: No ASA Class: III Anesthesia Type: General Preoperative Comments Pre-Operative Comments: States that she has been told that she had an Aortic Aneurism. Cardiac has cleared her for surgery. States that she is difficult to awaken after surgery. Hypertension. Overweight.
--- NOTE | 2025-02-13 12:27 | EXP.ANES.I ---
[facility] Anesthesia Record Part I Anesthesia Record I Intake, IV Amount: 750 Hydration: Adequate Estimated blood loss (mL): 15 Urine output (mL): 0 Blood Products used (#): none Blood Pressure: 155/75 SaO2: 92 Pulse Rate: 85 Airway Patency: Patent Respiratory Rate: 26 Temperature: 97.4 F Patient is:: Drowsy and Stable Stable to PACU at:: 12:15 Comments:: Very slow to awaken.
[2025-02-13] MEDS: KETOROLAC 30MG/ML VIAL 30 MG IV (12:37)
[2025-02-13] MEDS: IPRATROPIUM/ALBUTEROL 3 ML NEB IH (12:47)
--- NOTE | 2025-02-13 12:52 | SUR.PHASEI ---
1241- requested neb tx for pt. pt presenting with wheezing and cannot titrate below 6L NC [id number] at bedside for neb treatment
--- NOTE | 2025-02-13 14:26 | SUR.PHASEI ---
1420- Dr. Gomez at patient chair side to assess patient condition. Patient sats dropping in the 80s-low 90s frequently. patient has been education on insentive spirometry, deep breathing and coughing. O2 sats do improve with these interventions but also drop within minutes back to 88-90. patient on 2L per nasal canula at this time. O2 saturation 93%. 1424- Dr. Gomez went to waiting room to update family on patient condition.
[2025-02-13] MEDS: MORPHINE 2MG/ML SYRINGE 2 MG IV (14:37)
--- NOTE | 2025-02-13 14:46 | SUR.PHASEI ---
1437- Pain medication given per JUL. Patient stated her pain was at an 8. patient's oxygen level dropped to 88 after medication. educated on importance of deep breathing. Granddaughters at chair side.
--- NOTE | 2025-02-13 14:48 | P.CONS_ITS ---
History of Present Illness *Admission Date: 02/13/25 *Reason for visit:: Presented for elective cholecystectomy, found to have hypoxia after procedu *History of present illness: Copied from surgical H&P: Patient presents for planned cholecystectomy. Patient is a 54-year-old smoker from [place] with history of sleep apnea, COPD, chronic arterial occlusive disease, hypothyroidism, hypertension, hyperlipidemia, reported thoracic aorta aneurysm, coronary artery disease with previous stents. She was referred by the emergency department for gallstones after being seen on and seen in the office initially on 12/29/24. She presented to the emergency department with 2-day history of abdominal pain, chest pain, and shortness of air. She underwent very thorough evaluation. It should be noted, that during her evaluation in the emergency department she had fallen asleep and had some desaturation. Apparently patient does have occasional home oxygen use as needed. Her CT angiogram of the chest revealed ascending aortic aneurysm of 4.[address] scan of the abdomen and pelvis revealed increased soft tissue density in the midline anterior abdominal wall contains the sutures may be due to prior surgery. Sludge balls or gallstones in the gallbladder. Prior abdominal surgeries include appendectomy, total hysterectomy. Apparently she has also had a couple of incisional hernia repairs done at outside facilities including [place] and [facility]. After my initial consultation on 12/29/2024 I had her undergo gallbladder ultrasound. She was found to have fatty liver with a large gallstone present in the gallbladder but no evidence of any gallbladder wall thickening and no evidence of any biliary ductal dilatation with common duct measuring 6 mm. She had seen cardiology and had a stress thallium on 01/09/2025 which reveals no evidence of any reversible or fixed perfusion defects with ejection fraction calculated at 56%. I did obtain the records from her previous hernia surgery and she underwent open ventral hernia repair with placement of onlay mesh and bilateral component separation on 04/05/2015. She states that she has had food intolerance with postprandial nausea. Patient strongly wished to pursue cholecystectomy. After surgery, patient was having difficult time improving her oxygen after anesthesia. O2 sats remained in the high 80s to low 90s on 2 L oxygen. When weaned to room air, sats were dropped as low as 85. Medicine was consulted to evaluate for possible admission. Patient denies significant shortness of breath, chest pain, nausea or vomiting. Family at bedside helped talk with patient to try to encourage admission, patient adamant she wants to go home. [facility] Disclaimer: The information contained in this section may have been updated after the patient was seen, as this information can be updated by other users. Medical History Wheezing Abnormal findings on diagnostic imaging of heart and coronary circulation SOB (shortness of breath) Chest pain Hypothyroidism Fatigue COPD (chronic obstructive pulmonary disease) Abnormal PFT Encounter for screening for malignant neoplasm of lung in current smoker with 30 pack year history or greater Smoking greater than 30 pack years Dyspnea on exertion Tobacco abuse disorder Tobacco abuse counseling History of sleep apnea History of COPD PAD (peripheral artery disease) Pre-op evaluation Surgical History History of appendectomy History of total hysterectomy History of total hip replacement H/O thyroidectomy Family History Kidney disease Hypertension Thyroid disorder Asthma Social History Smoking Status: Current every day smoker tobacco type: cigarettes packs per day: 1 alcohol intake: never substance use type: denies use current occupational status: disabled Travel in the last 8 weeks?: None household members: spouse and children housing: house caffeine: Yes Review of Systems Review of Systems Review of systems (narrative): 14 point review of systems performed, pertinent positives and negatives as per HPI Exam Data for Last 24 hours Vital signs and Labs for Last 24 Hours: Temp Pulse Resp BP Pulse Ox O2 Del Method O2 Flow Rate 98.5 F 69 18 119/64 94 L Nasal Cannula 2 02/13/25 14:45 02/13/25 14:45 02/13/25 14:45 02/13/25 14:45 02/13/25 14:45 02/13/25 14:45 02/13/25 14:45 I & O for Last 24 hours: Intake & Output 02/10/25 02/11/25 02/12/25 02/13/25 23:59 23:59 23:59 23:59 Intake Total 850 / 850 Balance 850 / 850 Weight 122.016 kg Constitutional Constitutional: no acute distress, obese, chronically ill appearing and cooperative *Routine HEENT Exam Head: Present normocephalic and cushingoid faces Eye: Present EOMI and PERRL ENT: Present mucous membranes moist *Routine Neck Exam Neck: Present supple; Absent lymphadenopathy *Routine Respiratory Exam Respiratory: Present CTA bilaterally; Absent rhonchi or wheezes *Routine Cardiovascular Exam Cardiovascular: Present RRR *Routine Abdominal Exam Abdominal: Present soft, normoactive bowel sounds and tenderness (Right upper quadrant); Absent distended *Routine Extremities Exam Extremities: Absent cyanosis, clubbing or edema *Routine Skin Exam Skin: Present warm; Absent rash *Routine Neurological Exam Neurological: Present alert, oriented X3 and moving all extremities; Absent altered mental status Meds Home Medications and Allergies Home Medications ?Medication ?Instructions ?Recorded ?Confirmed ?Type diazepam 10 mg tablet 10 mg PO BID Anxiety 8 02/13/25 History oxycodone-acetaminophen 10 mg-325 1 tab PO Q6HP PRN PA IN 02/06/20 02/13/25 History mg tablet gabapentin 600 mg tablet 600 mg PO 0900,1200 Pain 02/13/25 History furosemide 40 mg tablet 40 mg PO DAILY PRN edema #30 tabs 11/27/22 02/13/25 Rx simvastatin 20 mg tablet 20 mg PO DAILY 06/03/2302/01 History levothyroxine 175 mcg tablet 175 mcg PO DAILY THYROID #90 tabs 06/02/24 02/13/25 Rx omeprazole 20 mg capsule,delayed 20 mg PO DAILY 02/13/25 History release bisoprolol fumarate 5 mg tablet See Rx Instructions .R oute 06/29/24 02/13/25 Rx .COMPLEX #90 tabs albuterol sulfate 90 mcg/actuation 2 inh inhalation Q6 H PRN shortness 01/17/25 02/13/25 Rx aerosol inhaler of breath or wheezing 90 day s #8.5 grams lisinopril 20 mg tablet 20 mg PO DAILY 01/30/2502/01 History hydrocodone 5 mg-acetaminophen 325 1 - 2 tab PO Q6H CA N Pain #17 tabs 02/13/25 Rx mg tablet New Prescriptions to Start Prescriptions: hydrocodone-acetaminophen Manny Edgar Allergies Allergy/AdvReac Type Severity Reaction Status Date / Time nitrofurantoin (From Allergy Severe S-DIFF. Verified 01/27/25 09:41 MACROBID) BREATHING metronidazole Allergy Intermediate swelling Verified 01/27/25 09:41 in throat codeine (CODEINE) Allergy Unknown Nausea Verified 01/27/25 09:41 losartan AdvReac Nausea Verified 01/30/25 09:28 Results Labs Labs: All other labs normal. Assessment and Plan *Assessment and plan (1) SOB (shortness of breath): Status: Acute Category: Medical Code(s): R06.02 - Shortness of breath (2) Wheezing: Status: Acute Category: Medical Code(s): R06.2 - Wheezing (3) Gallstones: Status: Acute Category: Medical Code(s): K80.20 - Calculus of gallbladder without cholecystitis without obstruction (4) Tobacco use: Status: Acute Category: Social Hx Code(s): Z72.0 - Tobacco use (5) Obesity, morbid: Status: Acute Category: Medical Code(s): E66.01 - Morbid (severe) obesity due to excess calories (6) COPD (chronic obstructive pulmonary disease): Status: Chronic Qualifiers: COPD type: unspecified COPD Qualified Code(s): J44.9 - Chronic obstructive pulmonary disease, unspecified Category: Medical Code(s): J44.9 - Chronic obstructive pulmonary disease, unspecified Plan 54-year-old female who presented for elective cholecystectomy. Wears nighttime oxygen of 2 L while she sleeps. Has suspected sleep apnea but refuses to wear CPAP. Does have apneic spells that family have witnessed. Continues to smoke daily. After much discussion in PACU, patient electing to go home. Continues to have hypoxia intermittently. O2 sats observed at 85% on room air at rest. Necessitating 2 L oxygen continuous. Recommend initiating supplemental oxygen at this time. Would recommend continuing incentive spirometry, ambulate as tolerated, caution with pain medication due to potential risk for respiratory drive. Patient counseled about risks for hypoxia as well as respiratory suppression with her pain medication. States understanding and states she wants to go home and was requesting pain medication. Will observe at least another 30 to 60 minutes after receiving pain medication to monitor for severe hypoxia or worsening respiratory depression. While I recommend patient stay overnight for admission, pain control, oxygen treatment and observation, patient has family with her who are willing to take her home and patient is refusing admission at this time. Have ordered oxygen from [facility]. Follow-up with surgery as previously scheduled. Encouraged to not smoke while wearing oxygen due to risk for fire and facial anderson. DuoNebs every 4-6 hours at home for the next 2 to 3 days. Incentive spirometry every hour. Discussed case with anesthesiologist at bedside, will recommend patient consider admission. If she chooses not to be admitted we will set her up with oxygen to go home. Patient is desire to go home and smoke. Does not want to stay in the hospital at this time. Thank you for the opportunity to consult on this patient. At this time this patient does not want to stay overnight, have coordinated with case management to set up oxygen for home. Discharged with family. Counseled on signs and symptoms necessitating return to ER for further evaluation including fever, shortness of breath, confusion, syncope. Patient states understanding.
--- NOTE | 2025-02-14 08:03 | P.PNANES_ITS ---
[facility] Anesthesia Record Part II Anesthesia Record Part II Discharge Time: 15:16 Destination: Surgical Day Care (OP Surgery) PACU nurse assessment reviewed?: Yes Patient Condition:: Good Anesthesia Complications:: None Swallowing reflex intact?: Yes Airway Patency: Patent Cyanosis?: No Blood Pressure: 137/78 SaO2: 91 Respiratory Rate: 17 Pulse Rate: 71 Temperature: 98.2 F Mental Status: Alert & Oriented Pain level:: 5 Nausea and/or vomitting:: None Intake, IV Amount: 0 Hydration: Adequate
[2025-02-14 08:04] VITALS: BP 137/78; PULSE 71; RESP 17; TEMP 36.8; O2SAT 91
== END 2025-02-13 15:42 | disposition home or self-care (01) ==
PROVIDERS: PCP Family Medicine; Visit Provider Surgery
PROC: 0FT44ZZ Resection of Gallbladder, Percutaneous Endoscopic Approach (ICD-10-PCS; CPT 47562; principal; 2025-02-13 10:55)
DX: K80.10 Calculus of gallbladder with chronic cholecystitis without obstruction (principal); E66.01 Morbid (severe) obesity due to excess calories; J44.9 Chronic obstructive pulmonary disease, unspecified; E78.5 Hyperlipidemia, unspecified; E89.0 Postprocedural hypothyroidism; I73.9 Peripheral vascular disease, unspecified; I25.10 Atherosclerotic heart disease of native coronary artery without angina pectoris; K76.0 Fatty (change of) liver, not elsewhere classified; F17.210 Nicotine dependence, cigarettes, uncomplicated; Z88.1 Allergy status to other antibiotic agents; Z88.5 Allergy status to narcotic agent; Z88.8 Allergy status to other drugs, medicaments and biological substances; Z68.39 Body mass index [BMI] 39.0-39.9, adult; Z90.49 Acquired absence of other specified parts of digestive tract; Z90.710 Acquired absence of both cervix and uterus; Z98.890 Other specified postprocedural states; Z95.5 Presence of coronary angioplasty implant and graft; Z79.890 Hormone replacement therapy; Z79.899 Other long term (current) drug therapy
CPT/HCPCS: 47562; 88304; 96374; J0690; J1100; J1885; J2003; J2250; J2270; J2405; J2704; J2795; J3010; J7120